=== PATIENT | female | born 2000 | race Caucasian/White ===

== ENCOUNTER 2024-12-12 09:59 | Emergency (ER) | payer MEDICAID, OTHER ==
[~2024-12-12] VITALS: Ht 167.6 cm; Wt 81.4 kg
[2024-12-12 10:22] VITALS: PULSE 72; RESP 14; O2SAT 99
[2024-12-12 10:24] VITALS: BP 116/74; PULSE 74; RESP 17; TEMP 97.9; O2SAT 95
--- NOTE | 2024-12-12 10:51 | ED.PDOC ---
History of Present Illness HPI Comments 24-year-old female who comes in with chief complaint of vaginal bleeding. The patient states that she missed her period for approximately three days. She states that she went and saw her OBGYN today. She did have some vaginal bleeding started yesterday but it increased today. She took a home test which was negative. Her doctor center to the emergency department's for further evaluation. At this time she denies any significant cramping. 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 Family History Family History: Family hx of DM Social History Smoker: Non-Smoker Alcohol: Occasionally Drugs: Marijuana Lives In: Home Constitutional: denies: chills, diaphoresis, fatigue, fever, malaise, sweats, weakness, others EENTM: denies: blurred vision, double vision, ear bleeding, ear discharge, ear drainage, ear pain, ear ringing, eye pain, eye redness, hearing loss, mouth pain, mouth swelling, nasal discharge, nose bleeding, nose congestion, nose pain, photophobia, tearing, throat pain, throat swelling, voice changes, others Respiratory: denies: cough, hemoptysis, orthopnea, SOB at rest, shortness of breath, SOB with excertion, stridor, wheezing, others Cardiovascular: denies: chest pain, dizzy spells, diaphoresis, Dyspnea on exertion, edema, irregular heart beat, left arm pain, lightheadedness, palpitations, PND, syncope, others Gastrointestinal: denies: abdomen distended, abdominal pain, blood streaked bowels, constipated, diarrhea, dysphagia, difficulty swallowing, hematemesis, melena, nausea, poor appetite, poor fluid intake, rectal bleeding, rectal pain, vomiting, others Genitourinary: reports: abnormal vagina bleeding; denies: burning, dyspareunia, dysuria, flank pain, frequency, hematuria, incontinence, pain, , vagina discharge, urgency, others Neurological: denies: dizziness, fainting, headache, left sided numbness, left sided weakness, numbness, paresthesia, pre-existing deficit, right sided numbness, right sided weakness, seizure, speech problems, tingling, tremors, weakness, others Musculoskeletal: denies: back pain, gout, joint pain, joint swelling, muscle pain, muscle stiffness, neck pain, others Integumetry: denies: bruises, change in color, change in hair/nails, dryness, laceration, lesions, lumps, rash, wounds, others Allergic/Immunocompromised: denies: Difficulty Healing, Frequent Infections, Hi ves, Itching, others Hematologic/Lymphatic: denies: anemia, blood clots, easy bleeding, easy bruising, swollen glands, others Endocrine: denies: excessive hunger, excessive sweating, excessive thirst, excessive urination, flushing, intolerance to cold, intolerance to heat, unexplained weight gain, unexplained weight loss, others Psychiatric: denies: anxiety, bipolar disorder, depression, hopeless, panic disorder, schizophrenia, sleepless, suicidal, others Physical Exam General Appearance: No Apparent Distress HEENT: Normal ENT Inspection, Pharynx Normal, TMs Normal Neck: Full Range of Motion, Non-Tender, Normal, Normal Inspection Respiratory: Chest Non-Tender, Lungs Clear, No Accessory Muscle Use, No Respiratory Distress, Normal Breath Sounds Cardiovascular: No Edema, No JVD, No Murmur, No Gallop, Normal Peripheral Pulses, Regular Rate/Rhythm Breast Exam: Deferred Gastrointestinal: No Organomegaly, Non Tender, No Pulsatile Mass, Normal Bowel Sounds, Soft Genitalia: Deferred Pelvic: Deferred Rectal: Deferred Extremities: No calf tenderness, Normal capillary refill, Normal inspection, Normal range of motion, Non-tender, No pedal edema Musculoskeletal : Apperance: Normal Neurologic: Alert, manager legal II-XII nml as Tested, No Motor Deficits, Normal Affect, Normal Mood, No Sensory Deficits Cerebellar Function: Normal Reflexes: Normal Skin: Dry, Normal Color, Warm Lymphatic: No Adenopathy Was a procedure done? Was a procedure done?: No Differential Dx Considerations may include: Ectopic , threatened , metromenorrhagia X-Ray, Labs, Meds, VS Vital Signs Date Time Temp Pulse Resp B/P (MAP) Pulse Ox O2 Delivery O2 Flow Rate FiO2 12/12/24 10:24 97.9 74 17 116/74 (88) 95 97.9 12/12/24 10:24 74 17 95 Room Air 12/12/24 10:22 72 14 99 Room Air* 0 21 12/12/24 10:04 98.7 85 18 116/4 (41) 96 Lab Test 12/12/24 10:27 Range/Units White Blood Count 7.5 4.4-10.8 10^3/uL Red Blood Count 4.83 4.0-5.20 10^6/uL Hemoglobin 13.3 12.2-16.2 g/dL Hematocrit 39.0 36.0-46.0 % Mean Corpuscular Volume 80.7 80.0-100.0 fL Mean Corpuscular Hemoglobin 27.5 L 28.0-32.0 pg Mean Corpuscular Hemoglobin Concent 34.1 32.0-36.0 g/dL Red Cell Distribution Width 15.3 H 11.8-14.3 % Platelet Count 177 140-450 10^3/uL Mean Platelet Volume 11.6 H 6.9-10.8 fL Neutrophils (%) (Auto) 73.6 37.0-80.0 % Lymphocytes (%) (Auto) 19.3 10.0-50.0 % Monocytes (%) (Auto) 5.9 0.0-12.0 % Eosinophils (%) (Auto) 0.8 0.0-7.0 % Basophils (%) (Auto) 0.4 0.0-2.0 % Neutrophils # (Auto) 5.6 1.6-8.6 10 ^3/uL Lymphocytes # (Auto) 1.5 0.4-5.4 10 ^3/uL Monocytes # (Auto) 0.4 0-1.3 10 ^3/uL Eosinophils # (Auto) 0.1 0-0.8 10 ^3/uL Basophils # (Auto) 0 0-0.2 10 ^3/uL Nucleated Red Blood Cells 0.2 % Beta HCG, Quantitative 0.1 L 1.5-4.2 mIU/mL The CBC is within normal limits The quantitative hCG is negative At this time, the patient was being discharged and will follow up with the [facility] care doctor The patient will return to the emergency department's condition worsens The patient understands and agrees with the management. Time of 1ST Reevaluation: 10:51 Reevaluation 1ST: Improved Patient Education/Counseling: Diagnosis, Treatment, Prognosis, Need For Follow Up Family Education/Counseling: No Family Present Departure 1 Departure Time of Disposition: 11:33 Impression: Primary Impression: Abnormal vaginal bleeding Disposition: 01 HOME / SELF CARE / HOMELESS Condition: Fair Discharged With: Self Critical Care Note Critical Care Time?: No Stability Stability form required: No Heart Score Heart Score: Heart Score Response (Comments) Value History N/A 0 EKG N/A 0 Age N/A 0 Risk Factors N/A 0 Troponin N/A 0 Total 0 CHERRIE HEDRICK MD Dec 12, 2024 10:51
[2024-12-12 10:54] LABS: Basophils # (auto) 0 10 ^3/uL (0-0.2); Basophils % (auto) 0.4 % (0.0-2.0); Eosinophils # (auto) 0.1 10 ^3/uL (0-0.8); Eosinophils % (auto) 0.8 % (0.0-7.0); Hemoglobin 13.3 g/dL (12.2-16.2); Lymphocytes # (auto) 1.5 10 ^3/uL (0.4-5.4); Lymphocytes % (auto) 19.3 % (10.0-50.0); Mean Corpuscular Hemoglobin 27.5 pg (28.0-32.0); Mean Corpuscular Hgb Conc. 34.1 g/dL (32.0-36.0); Mean Corpuscular Volume 80.7 fL (80.0-100.0); Monocytes # (auto) 0.4 10 ^3/uL (0-1.3); Monocytes % (auto) 5.9 % (0.0-12.0); Neutrophils # (auto) 5.6 10 ^3/uL (1.6-8.6); Neutrophils % (auto) 73.6 % (37.0-80.0); Nucleated Red Blood Cells % 0.2 %; Platelet Count (auto) 177 10^3/uL (140-450); Red Blood Cells 4.83 10^6/uL (4.0-5.20); Red Cell Distribution Width 15.3 % (11.8-14.3); White Blood Cell 7.5 10^3/uL (4.4-10.8)
[2024-12-12] MEDS: ACETAMINOPHEN 325 MG TAB PO ONE (12:14)
== END 2024-12-12 12:15 | disposition home or self-care (01) ==
LOC: ER 09:59
DX: N93.9 Abnormal uterine and vaginal bleeding, unspecified (principal); F32.9 Major depressive disorder, single episode, unspecified; F12.90 Cannabis use, unspecified, uncomplicated; Z88.1 Allergy status to other antibiotic agents
CPT/HCPCS: 36415; 84702; 85025

== ENCOUNTER 2024-12-18 10:42 | Inpatient (IN) | payer MEDICAID ==
[~2024-12-18] VITALS: Ht 167.6 cm; Wt 81.0 kg
--- NOTE | 2024-12-18 10:54 | ED.PDOC ---
GI ASSESSMENT HPI Comments 24 y.o female with PMHx of anxiety and depression, presents to the ED for a chief complaint of of mid upper abdominal pain associated with nausea and vomiting that started one day ago. Patient describes pain as sharp, constant, radiating to her back and had a pain rate of 8/10. Patient reports today around 0400 pain increased and worsened when vomiting. Patient denies any diarrhea, rectal bleeding, hematemesis, fever, chills, or dysuria. Patient was recently seen for vaginal bleeding on 12/12/24 at this ED, was told to follow up with OB in which she did and had a further assessment done, ruling out or any other complications. At this time, patient reports vaginal bleeding has resolved. Time Seen by MD: 10:46 Primary Care Provider: DOUGLAS Reviewed Notes: Nurses Notes, Medications, Allergies Allergies: Coded Allergies: Metoclopramide (Verified Allergy, Unknown, 12/12/24) Information Source: Patient Mode of Arrival: Ambulatory Timing: Days (1) Duration: Since onset Prehospital treatment: None Quality: Sharp Vomitus: Hard Stool: Normal Severity: Moderate Recent: None Recent Hx of: None Pain Location: Diffuse, Periumbilical Modifying Factors: Nothing Associated sign and symptoms: Nausea, Vomiting, Abdominal Pain Past Medical History PAST MEDICAL HISTORY: Anxiety, Depression Surgical History: Surgical History (Other): Bartholin gland excision CAMERA ENGINEER 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 History Family History Family History: Family hx of DM Social History Smoker: Non-Smoker Alcohol: Occasionally Drugs: Marijuana Lives In: Home Constitutional: denies: chills, diaphoresis, fatigue, fever, malaise, sweats, weakness, others EENTM: denies: blurred vision, double vision, ear bleeding, ear discharge, ear drainage, ear pain, ear ringing, eye pain, eye redness, hearing loss, mouth pain, mouth swelling, nasal discharge, nose bleeding, nose congestion, nose pain, photophobia, tearing, throat pain, throat swelling, voice changes, others Respiratory: denies: cough, hemoptysis, orthopnea, SOB at rest, shortness of breath, SOB with excertion, stridor, wheezing, others Cardiovascular: denies: chest pain, dizzy spells, diaphoresis, Dyspnea on exertion, edema, irregular heart beat, left arm pain, lightheadedness, palpitations, PND, syncope, others Gastrointestinal: reports: abdominal pain, nausea, vomiting; denies: abdomen distended, blood streaked bowels, constipated, diarrhea, dysphagia, difficulty swallowing, hematemesis, melena, poor appetite, poor fluid intake, rectal bleeding, rectal pain, others Genitourinary: denies: abnormal vagina bleeding, burning, dyspareunia, dysuria, flank pain, frequency, hematuria, incontinence, pain, , vagina discharge, urgency, others Neurological: denies: dizziness, fainting, headache, left sided numbness, left sided weakness, numbness, paresthesia, pre-existing deficit, right sided numbness, right sided weakness, seizure, speech problems, tingling, tremors, weakness, others Musculoskeletal: denies: back pain, gout, joint pain, joint swelling, muscle pain, muscle stiffness, neck pain, others Integumetry: denies: bruises, change in color, change in hair/nails, dryness, laceration, lesions, lumps, rash, wounds, others Allergic/Immunocompromised: denies: Difficulty Healing, Frequent Infections, Hives, Itching, others Hematologic/Lymphatic: denies: anemia, blood clots, easy bleeding, easy bruising, swollen glands, others Endocrine: denies: excessive hunger, excessive sweating, excessive thirst, excessive urination, flushing, intolerance to cold, intolerance to heat, unexplained weight gain, unexplained weight loss, others Psychiatric: denies: anxiety, bipolar disorder, depression, hopeless, panic disorder, schizophrenia, sleepless, suicidal, others All Other Systems: Reviewed and Negative Physical Exam General Appearance: Moderate Distress HEENT: Normal ENT Inspection, Pharynx Normal, TMs Normal Neck: Full Range of Motion, Non-Tender, Normal, Normal Inspection Respiratory: Chest Non-Tender, Lungs Clear, No Accessory Muscle Use, No Respiratory Distress, Normal Breath Sounds Cardiovascular: No Edema, No JVD, No Murmur, No Gallop, Normal Peripheral Pulses, Regular Rate/Rhythm Breast Exam: Deferred Gastrointestinal: No Organomegaly, Non Tender, No Pulsatile Mass, Normal Bowel Sounds, Soft Genitalia: Deferred Pelvic: Deferred Rectal: Deferred Extremities: No calf tenderness, Normal capillary refill, Normal inspection, Normal range of motion, Non-tender, No pedal edema Musculoskeletal : Apperance: Normal Neurologic: Alert, campus monitor II-XII nml as Tested, No Motor Deficits, Normal Affect, Normal Mood, No Sensory Deficits Cerebellar Function: Normal Reflexes: Normal Skin: Dry, Normal Color, Warm Lymphatic: No Adenopathy Was a procedure done? Was a procedure done?: No GI differential Dx Differential Diagnosis: Cholangitis, Cholecystitis, Esophagitis, Gastritis/PUD, Gastroenteritis, Electrolyte Imbalance, Bacterial, Viral X-Ray, Labs, Meds, VS Vital Signs Date Time Temp Pulse Resp B/P (MAP) Pulse Ox O2 Delivery O2 Flow Rate FiO2 12/18/24 14:06 62 16 137/80 12/18/24 13:04 98.0 60 16 123/82 (96) 99 98.0 12/18/24 13:04 60 16 99 Room Air* 0 21 12/18/24 10:51 98.2 76 18 112/80 (91) 98 98.2 Lab Test 12/18/24 13:00 12/18/24 11:04 Range/Units Urine Color Yellow Yellow Urine Clarity Clear Clear Urine pH 5.5 5.0-9.0 Urine Specific [place] 1.028 1.001-1.035 Urine Protein Negative Negative Urine Ketones 1+ H Negative Urine Blood Negative Negative /uL Urine Nitrite Negative Negative Urine Bilirubin Negative Negative Urine Urobilinogen Normal Negative mg/dL Urine Leukocyte Esterase 2+ Negative /uL Urine RBC 2 0 - 4 /hpf Urine Microscopic WBC 7 H 0-5 /HPF Urine Squamous Epithelial Cells Few <5 /hpf Urine Bacteria Few H None Seen /hpf Urine Mucus Few None Seen Urine Glucose Normal Normal mg/dL White Blood Count 7.9 4.4-10.8 10^3/uL Red Blood Count 4.88 4.0-5.20 10^6/uL Hemoglobin 13.4 12.2-16.2 g/dL Hematocrit 39.0 36.0-46.0 % Mean Corpuscular Volume 80.0 80.0-100.0 fL Mean Corpuscular Hemoglobin 27.4 L 28.0-32.0 pg Mean Corpuscular Hemoglobin Concent 34.2 32.0-36.0 g/dL Red Cell Distribution Width 15.1 H 11.8-14.3 % Platelet Count 174 140-450 10^3/uL Mean Platelet Volume 10.7 6.9-10.8 fL Neutrophils (%) (Auto) 76.9 37.0-80.0 % Lymphocytes (%) (Auto) 17.6 10.0-50.0 % Monocytes (%) (Auto) 4.8 0.0-12.0 % Eosinophils (%) (Auto) 0.3 0.0-7.0 % Basophils (%) (Auto) 0.4 0.0-2.0 % Neutrophils # (Auto) 6.1 1.6-8.6 10 ^3/uL Lymphocytes # (Auto) 1.4 0.4-5.4 10 ^3/uL Monocytes # (Auto) 0.4 0-1.3 10 ^3/uL Eosinophils # (Auto) 0 0-0.8 10 ^3/uL Basophils # (Auto) 0 0-0.2 10 ^3/uL Nucleated Red Blood Cells 0.1 % Sodium Level 139 136-145 mmol/L Potassium Level 3.9 3.5-5.1 mmol/L Chloride Level 106 98-107 mmol/L Carbon Dioxide Level 26 20-31 mmol/L Anion Gap 7 5-15 Blood Urea Nitrogen 8 L 9-23 mg/dL Creatinine 0.77 0.550-1.02 mg/dL Glomerular Filtration Rate Calc 109 >90 mL/min BUN/Creatinine Ratio 10.4 10.0-20.0 Serum Glucose 98 74-106 mg/dL Calcium Level 9.9 8.7-10.4 mg/dL Total Bilirubin 1.7 H 0.2-1.0 mg/dL Aspartate Amino Transferase (AST) < 8 L 13-40 U/L Alanine Aminotransferase (ALT) 11 7-40 U/L Alkaline Phosphatase 68 46-116 U/L Total Protein 7.2 5.7-8.2 g/dL Albumin 4.7 3.2-4.8 g/dL Lipase 23 12-53 U/L Current Medications Medications (Trade) Dose Ordered Sig/Mili Route Start Time Stop Time Status Last Admin Ondansetron HCl (Zofran) 4 mg ONCE ONCE IV 12/18/24 13:30 12/18/24 13:31 DC 12/18/24 14:06 Morphine Sulfate 4 mg ONCE ONCE IV 12/18/24 13:30 12/18/24 13:31 DC 12/18/24 14:06 Ultrasound gallbladder IMPRESSION: 1. No evidence of cholecystitis gallstones or biliary dilatation. The patient's CBC and chemistry panel are within normal limits The total bilirubin is slightly elevated at 1.7 The urine test is positive for UTI The patient was being given Rocephin 1 g IV piggyback for the UTI We did speak with the patient and she was still having persistent abdominal pain The patient was being given morphine and Zofran The patient also states that she has been told that she has had gallstones but they had to do a HIDA scan in the past At this time we feel that the patient needs to be admitted and we are going to have the GI physician also consult on this patient. Time of 1ST Reevaluation: 10:54 Reevaluation 1ST: Unchanged Patient Education/Counseling: Diagnosis, Treatment, Prognosis Family Education/Counseling: No Family Present Departure 1 Departure Time of Disposition: 14:06 Impression: Primary Impression: Intractable abdominal pain Additional Impression: UTI (urinary tract infection) Qualified Codes: N30.00 - Acute cystitis without hematuria Disposition: ADMITTED INPATIENT Admit to: Med Surg Condition: Fair Critical Care Note Critical Care Time?: No Stability Stability form required: Yes Unstable for transfer: ED Physician Assesment (Clinical assesment) I personally scribed for CHERRIE HEDRICK MD ([email or web address]) on 12/18/24 at 10:54. Electronically submitted by Marisela Villatoro ([email or web address]). I personally scribed for CHERRIE HEDRICK MD ([email or web address]) on 12/18/24 at 13:00. Electronically submitted by Marisela Villatoro ([email or web address]). CHERRIE HEDRICK MD Dec 18, 2024 10:54
[2024-12-18 11:31] LABS: Basophils # (auto) 0 10 ^3/uL (0-0.2); Basophils % (auto) 0.4 % (0.0-2.0); Eosinophils # (auto) 0 10 ^3/uL (0-0.8); Eosinophils % (auto) 0.3 % (0.0-7.0); Hemoglobin 13.4 g/dL (12.2-16.2); Lymphocytes # (auto) 1.4 10 ^3/uL (0.4-5.4); Lymphocytes % (auto) 17.6 % (10.0-50.0); Mean Corpuscular Hemoglobin 27.4 pg (28.0-32.0); Mean Corpuscular Hgb Conc. 34.2 g/dL (32.0-36.0); Monocytes # (auto) 0.4 10 ^3/uL (0-1.3); Monocytes % (auto) 4.8 % (0.0-12.0); Neutrophils # (auto) 6.1 10 ^3/uL (1.6-8.6); Neutrophils % (auto) 76.9 % (37.0-80.0); Nucleated Red Blood Cells % 0.1 %; Platelet Count (auto) 174 10^3/uL (140-450); Red Blood Cells 4.88 10^6/uL (4.0-5.20); Red Cell Distribution Width 15.1 % (11.8-14.3); White Blood Cell 7.9 10^3/uL (4.4-10.8)
[2024-12-18 11:36] LABS: Alanine Aminotransferase 11 U/L (7-40); Albumin 4.7 g/dL (3.2-4.8); Alkaline Phosphatase 68 U/L (46-116); Anion Gap 7 (5-15); BUN/Creatinine Ratio 10.4 (10.0-20.0); Calcium 9.9 mg/dL (8.7-10.4); Carbon Dioxide 26 mmol/L (20-31); Chloride 106 mmol/L (98-107); Glucose 98 mg/dL (74-106); Potassium 3.9 mmol/L (3.5-5.1); Sodium 139 mmol/L (136-145); Total Protein 7.2 g/dL (5.7-8.2)
[2024-12-18 11:38] LABS: Aspartate Aminotransferase < 8 U/L (13-40); Bilirubin, Total 1.7 mg/dL (0.2-1.0); Blood Urea Nitrogen 8 mg/dL (9-23)
[2024-12-18 11:48] LABS: Lipase 23 U/L (12-53)
--- NOTE | 2024-12-18 12:28 | DVH ---
Ultrasound gallbladder INDICATION: ruq pain Technique: 2-D real-time ultrasound was performed with axial and sagittal images submitted for evalu ation. FINDINGS: Liver and spleen are normal in size without focal mass. Liver measures 15 cm No gallstones or gallbladder wall thickening. No gallbladder wall thickening. No biliary dilatation. Common bile duct measures 3.1 cm Kidneys are normal in size without mass stone or hydronephrosis. Right kidney measures 9 cm in IMPRESSION: 1. No evidence of cholecystitis gallstones or biliary dilatation.
[2024-12-18 13:04] VITALS: PULSE 60; RESP 16; O2SAT 99
[2024-12-18 13:24] LABS: Urine Bacteria FEW /hpf (None Seen); Urine Blood Negative /uL (Negative); Urine Clarity Clear (Clear); Urine Color Yellow (Yellow); Urine Mucus FEW (None Seen); Urine Protein, UAD Negative (Negative); Urine Specific Gravity 1.028 (1.001-1.035); Urine Squamous Epithelial Cell FEW /hpf (<5); Urine Urobilinogen Normal (Negative); Urine WBC 7 /HPF (0-5); Urine pH 5.5 (5.0-9.0)
[2024-12-18] MEDS: ONDANSETRON HCL 4 MG/2 ML VIAL IV ONE (14:06)
[2024-12-18] MEDS: MORPHINE SULFATE 4 MG/ML SYR/VIAL IV ONE (14:06)
[2024-12-18] MEDS ORDERED: ACETAMINOPHEN 325 MG TAB PO PRN (18:00)
[2024-12-18 18:47] LABS: Chloride 105 mmol/L (98-107); Potassium 3.7 mmol/L (3.5-5.1); Sodium 140 mmol/L (136-145)
[2024-12-18 18:48] LABS: Anion Gap 8 (5-15); Calcium 9.8 mg/dL (8.7-10.4); Carbon Dioxide 27 mmol/L (20-31)
[2024-12-18 18:53] LABS: BUN/Creatinine Ratio 9.6 (10.0-20.0); Glucose 85 mg/dL (74-106)
[2024-12-18 18:54] LABS: Blood Urea Nitrogen 8 mg/dL (9-23)
[2024-12-18] MEDS: ONDANSETRON HCL 4 MG/2 ML VIAL IV PRN (19:10)
[2024-12-18] MEDS: HYDROcodone-ACET 5/325MG TAB PO PRN (19:19)
--- NOTE | 2024-12-18 21:20 | DVHHP2 ---
History of Present Illness Reason for Visit: Abdominal pain History of Present Illness 24-year-old female presents for evaluation of abdominal pain. Patient reports right upper quadrant abdominal pain that radiates to her back. She reports previously being told that she would requiring a cholecystectomy due to gallstones. She has not been able to follow up with the surge and due to insurance reasons. Today she presents with nausea as well. She states his symptoms become aggravated after eating food. No other acute complaints reported. Past Medical History Depression anxiety Past Surgical History Family History Diabetes mellitus Smoke: No ALCOHOL: occassional Drugs: Marijuana Lives: with Family Review of Systems Review of Systems Review of systems are currently negative otherwise addressed HPI. Allergies: Coded Allergies: Metoclopramide (Verified Allergy, Unknown, 12/12/24) Medications Current Medications Medications Dose Ordered Sig/Mili Route Start Time Stop Time Status Last Admin Dose Admin Ceftriaxone Sodium 50 ml @ 100 mls/hr DAILY@09 IV 12/19/24 09:00 Acetaminophen/ Hydrocodone Bitart 1 tab Q4HP PRN PO 12/18/24 18:00 12/18/24 19:19 1 TAB Ondansetron HCl 4 mg Q4HP PRN IV 12/18/24 18:00 12/18/24 19:10 4 MG Acetaminophen 650 mg Q6HP PRN PO 12/18/24 18:00 Exam Vital Signs Vital Signs Date Time Temp Pulse Resp B/P (MAP) Pulse Ox O2 Delivery O2 Flow Rate FiO2 12/18/24 14:07 98.0 62 16 137/80 (99) 96 98.0 12/18/24 13:04 Room Air* 0 21 Exam Gen: 24-year-old female in mild distress. Skin: Warm, dry, normal color and texture, no rash. HEENT: Normocephalic atraumatic, mucous membranes moist and pink. Neck: Cervical and supraclavicular nodes normal without enlargement, trachea is midline, thyroid gland is normal without masses. Pulmonary: Clear to auscultation and percussion bilaterally. Cardiac: Regular rate and rhythm. No murmur Abdomen: Soft, nontender, nondistended, bowel sounds present all 4 quadrants, no guarding, no rigidity, no organomegaly. Extremities: No cyanosis, clubbing, no edema Neuro: Cranial nerves II through XII grossly intact, normal affect and speech, no focal motor deficits. Labs/Xrays ORDERING PHYSICIAN: CHERRIE HEDRICK MD PROCEDURE(s): GBUS - GALLBLADDER REASON: ruq pain ORDER NUMBER(s): [id number], ACCESSION NUMBER(s): [id number] Ultrasound gallbladder INDICATION: ruq pain Technique: 2-D real-time ultrasound was performed with axial and sagittal images submitted for evaluation. FINDINGS: Liver and spleen are normal in size without focal mass. Liver measures 15 cm No gallstones or gallbladder wall thickening. No gallbladder wall thickening. No biliary dilatation. Common bile duct measures 3.1 cm Kidneys are normal in size without mass stone or hydronephrosis. Right kidney measures 9 cm in IMPRESSION: 1. No evidence of cholecystitis gallstones or biliary dilatation. Labs Test 12/18/24 18:27 12/18/24 13:00 12/18/24 11:04 Range/Units Sodium Level 140 136-145 mmol/L Potassium Level 3.7 3.5-5.1 mmol/L Chloride Level 105 98-107 mmol/L Carbon Dioxide Level 27 20-31 mmol/L Anion Gap 8 5-15 Blood Urea Nitrogen 8 L 9-23 mg/dL Creatinine 0.83 0.550-1.02 mg/dL Glomerular Filtration Rate Calc 100 >90 mL/min BUN/Creatinine Ratio 9.6 L 10.0-20.0 Serum Glucose 85 74-106 mg/dL Calcium Level 9.8 8.7-10.4 mg/dL Urine Color Yellow Yellow Urine Clarity Clear Clear Urine pH 5.5 5.0-9.0 Urine Specific [place] 1.028 1.001-1.035 Urine Protein Negative Negative Urine Ketones 1+ H Negative Urine Blood Negative Negative /uL Urine Nitrite Negative Negative Urine Bilirubin Negative Negative Urine Urobilinogen Normal Negative mg/dL Urine Leukocyte Esterase 2+ Negative /uL Urine RBC 2 0 - 4 /hpf Urine Microscopic WBC 7 H 0-5 /HPF Urine Squamous Epithelial Cells Few <5 /hpf Urine Bacteria Few H None Seen /hpf Urine Mucus Few None Seen Urine Glucose Normal Normal mg/dL White Blood Count 7.9 4.4-10.8 10^3/uL Red Blood Count 4.88 4.0-5.20 10^6/uL Hemoglobin 13.4 12.2-16.2 g/dL Hematocrit 39.0 36.0-46.0 % Mean Corpuscular Volume 80.0 80.0-100.0 fL Mean Corpuscular Hemoglobin 27.4 L 28.0-32.0 pg Mean Corpuscular Hemoglobin Concent 34.2 32.0-36.0 g/dL Red Cell Distribution Width 15.1 H 11.8-14.3 % Platelet Count 174 140-450 10^3/uL Mean Platelet Volume 10.7 6.9-10.8 fL Neutrophils (%) (Auto) 76.9 37.0-80.0 % Lymphocytes (%) (Auto) 17.6 10.0-50.0 % Monocytes (%) (Auto) 4.8 0.0-12.0 % Eosinophils (%) (Auto) 0.3 0.0-7.0 % Basophils (%) (Auto) 0.4 0.0-2.0 % Neutrophils # (Auto) 6.1 1.6-8.6 10 ^3/uL Lymphocytes # (Auto) 1.4 0.4-5.4 10 ^3/uL Monocytes # (Auto) 0.4 0-1.3 10 ^3/uL Eosinophils # (Auto) 0 0-0.8 10 ^3/uL Basophils # (Auto) 0 0-0.2 10 ^3/uL Nucleated Red Blood Cells 0.1 % Total Bilirubin 1.7 H 0.2-1.0 mg/dL Aspartate Amino Transferase (AST) < 8 L 13-40 U/L Alanine Aminotransferase (ALT) 11 7-40 U/L Alkaline Phosphatase 68 46-116 U/L Total Protein 7.2 5.7-8.2 g/dL Albumin 4.7 3.2-4.8 g/dL Lipase 23 12-53 U/L Assessment/Plan Assessment/Plan Assessment Acute abdominal pain Rule out cholecystitis Mild transaminitis UTI Plan Admit the patient to [facility] to the hospitalist AGUSTIN lim pending Surgical consultation Rocephin Clear liquid diet Pain management Continue treatment per orders. Plan discussed with: Patient My Orders Orders - DARIEN DIA AGACNP Procedure Category Date Status Time * Gi Dvh Market Intelligence Consultant CONS 12/18/24 Transmitted 17:59 Ceftriaxone 1gm/50ml PHA 12/19/24 In Process D5w (Rocephin) 09:00 Admit ADMIT 12/18/24 Transmitted 17:59 Hydrocodone-Acet PHA 12/18/24 In Process 5/325mg Tab ([place] 18:00 Ondansetron Hcl PHA 12/18/24 In Process (Zofran) 18:00 Complete Blood Count LAB 12/19/24 Verified 04:00 Condition: Stable PEGGY 12/18/24 In Process 17:59 Acetaminophen Tablet PHA 12/18/24 In Process (Tylenol Tablet) 18:00 Clear Liq Diet DIET 12/18/24 Transmitted Dinner Bedrest With Bathroom PEGGY 12/18/24 In Process Privileg 17:59 Date of Service: Dec 18, 2024 Billing Provider: DARIEN DIA Common Visit Codes: [id number] INP/OBS CARE (HIGH) DARIEN DIA Dec 18, 2024 21:20
[2024-12-18 22:55] VITALS: PULSE 55; RESP 16; O2SAT 98
[2024-12-19 05:44] LABS: Basophils # (auto) 0 10 ^3/uL (0-0.2); Basophils % (auto) 0.4 % (0.0-2.0); Eosinophils # (auto) 0.1 10 ^3/uL (0-0.8); Eosinophils % (auto) 1.2 % (0.0-7.0); Hematocrit 41.9 % (36.0-46.0); Hemoglobin 14.1 g/dL (12.2-16.2); Lymphocytes # (auto) 1.7 10 ^3/uL (0.4-5.4); Lymphocytes % (auto) 29.3 % (10.0-50.0); Mean Corpuscular Hgb Conc. 33.6 g/dL (32.0-36.0); Mean Corpuscular Volume 80.5 fL (80.0-100.0); Monocytes # (auto) 0.4 10 ^3/uL (0-1.3); Monocytes % (auto) 6.7 % (0.0-12.0); Neutrophils # (auto) 3.7 10 ^3/uL (1.6-8.6); Neutrophils % (auto) 62.4 % (37.0-80.0); Nucleated Red Blood Cells % 0.1 %; Platelet Count (auto) 174 10^3/uL (140-450); Red Blood Cells 5.21 10^6/uL (4.0-5.20); Red Cell Distribution Width 14.6 % (11.8-14.3); White Blood Cell 5.9 10^3/uL (4.4-10.8)
[2024-12-19 06:27] VITALS: BP 122/67; PULSE 52; PULSE 55; RESP 18; TEMP 97.7; O2SAT 100
[2024-12-19 07:56] LABS: Alanine Aminotransferase 14 U/L (7-40); Alkaline Phosphatase 72 U/L (46-116); Anion Gap 11 (5-15); BUN/Creatinine Ratio 12.3 (10.0-20.0); Blood Urea Nitrogen 10 mg/dL (9-23); Calcium 10.2 mg/dL (8.7-10.4); Carbon Dioxide 27 mmol/L (20-31); Chloride 103 mmol/L (98-107); Glucose 87 mg/dL (74-106); INR 1.03 (0.9-1.15); Partial Thromboplastin Time 29.6 SEC (24.5-34.5); Prothrombin Time 10.9 sec (9.3-11.8); Sodium 141 mmol/L (136-145); Total Protein 7.6 g/dL (5.7-8.2)
[2024-12-19 07:58] LABS: Albumin 5.2 g/dL (3.2-4.8); Aspartate Aminotransferase 12 U/L (13-40); Beta HCG, Quantitative 0.1 mIU/mL (1.5-4.2); Bilirubin, Total 1.9 mg/dL (0.2-1.0); Blood Alcohol < 3.0 mg/dL (<10); Potassium 3.4 mmol/L (3.5-5.1)
[2024-12-19 08:01] LABS: Thyroid Stimulating Hormone 0.94 uIU/mL (0.55-4.78)
[2024-12-19 10:00] VITALS: BP 140/87; PULSE 63; RESP 16; TEMP 98.5; O2SAT 100
[2024-12-19] MEDS: SODIUM CHLORIDE 0.9% 1,000 ML IV ONE (11:05)
[2024-12-19] MEDS: POTASSIUM EFFERVESENT TAB 25 MEQ PO ONE (11:07)
[2024-12-19] MEDS: cefTRIAXone 1GM/50ML D5W 50 ML IV SCH (11:07)
--- NOTE | 2024-12-19 12:13 | DVH ---
Exam: CT CT AB PEL WO CON-NO ORAL OR IV History: Possible nephrolithiasis Comparison Study: None Technique: Multidetector spiral CT of the abdomen and pelvis was performed from lung bases to pubic symphysis. Imaging was performed without IV contrast. Axial, coronal and sagittal multiplanar reform ats were obtained from the axial data set by the technologist. Radiation dose : Abdomen/Pelvis: CTDIvol 9.71 mGy, DLP 505.0 mGy*cm. Findings: Evaluation of solid organs is limited due to lack of intravenous contrast use. Lung Bases: No acute or significant lung base finding. Normal heart size. No pleural or pericardial effusion. Liver: The liver is normal in size. No focal lesions. Gallbladder and biliary Tree: Unremarkable Spleen: Unremarkable Pancreas: The pancreas is grossly normal in appearance. Adrenal Glands: Unremarkable Kidneys: Kidneys are grossly normal without calculi or hydronephrosis. Bladder: Grossly unremarkable for degree of distention. Bowel: The stomach is grossly normal in appearance. Small bowel and colon are normal in caliber and d istribution. The appendix is not visualized; however, no secondary findings of acute appendicitis josué ntified. Ascites: Absent Lymphadenopathy: No mesenteric, retroperitoneal or periportal lymphadenopathy. Abdominal wall and Mesentery: Unremarkable. Vasculature: The visualized abdominal aorta is normal in size and caliber. Evaluation of abdominal a nd pelvic vessels is limited due to lack of intravenous contrast. Pelvic Organs: Unremarkable Musculoskeletal: No aggressive focal bony lesions, acute fractures or dislocation. IMPRESSION: 1. No acute abdominal or pelvic findings. No hydronephrosis or nephrolithiasis. Radiation optimization: All CT scans at this facility use at least one of these dose optimization magnus hniques: Automated exposure control mA and/or kV adjustment per patient size (includes targeted exams where dose is matched to clinical indication) or iterative reconstruction. HS:Y
--- NOTE | 2024-12-19 12:36 | DVHPN2 ---
Progress Note Date Seen: Dec 19, 2024 Medical Necessity Reason Pt with a Central, PICC or Fol: No Objective vital signs Vital Sign Date Time Temp Pulse Resp B/P (MAP) Pulse Ox O2 Delivery O2 Flow Rate FiO2 12/19/24 10:00 98.5 63 16 140/87 (104) 100 98.5 12/19/24 06:27 Room Air* 0 21 medications Current Medications Medications Dose Ordered Sig/Mili Route Start Time Stop Time Status Last Admin Dose Admin Ceftriaxone Sodium 50 ml @ 100 mls/hr DAILY@09 IV 12/19/24 09:00 12/19/24 11:07 100 MLS/HR Acetaminophen/ Hydrocodone Bitart 1 tab Q4HP PRN PO 12/18/24 18:00 12/19/24 06:25 1 TAB Ondansetron HCl 4 mg Q4HP PRN IV 12/18/24 18:00 12/19/24 11:39 4 MG Acetaminophen 650 mg Q6HP PRN PO 12/18/24 18:00 laboratory and microbiology Laboratory Tests 12/19/24 05:14 Test 12/19/24 05:14 Range/Units Serum Glucose 87 74-106 mg/dL Problem List/Assessment/Plan Problem List/Assessment/Plan 12/19/24 preliminary vitis:patient out of her bed "gone for imaging", after reviewing her chart I ordered an MRCP as there is a possibility she may have passed a gallstone (no stones in GB on ultrasound, typical pain and elevated bilirubin, in combination with patient stating she was told in the past she has gallstones.complete consultation will follow after completion of w/u Plan discussed with: SERENITY Clark MD Dec 19, 2024 12:36
--- NOTE | 2024-12-19 12:38 | DVH ---
Procedure: NM NM HIDA SCAN Exam Date: 12/19/2024 08:04 AM Clinical History: r/o cholecystitis Comparison Study: CT dated 12/19/2024 Nuclear Medicine Hepatobiliary Scan. Technique: Following the intravenous administration of 4.3 mCi of technetium 99m labeled Choletec multiple plana r abdominal planar images were obtained in anterior projection in 5 minute intervals for 60 minutes . Right lateral images were obtained at 4 hours after injection. Findings: The liver appears grossly normal in size. There is no abnormal persistence of the cardiac or blood po ol activity. There is prompt visualization of the gallbladder and excretion of activity into the smal l bowel. Impression: Unremarkable hepatobiliary study without evidence of acute cholecystitis.
[2024-12-19 13:07] LABS: COVID19 ANTIGEN SOFIA FIA NEGATIVE (NEGATIVE)
[2024-12-19] MEDS: LIDOCAINE VISCOUS 2% 15ML UD PO ONE (14:13)
[2024-12-19] MEDS: MAALOX PLUS or MAALOX 30 ML PO ONE (14:13)
[2024-12-19] MEDS: diphenhdrAMINE HCL 50 MG/1 ML VL IV ONE (14:13)
[2024-12-19 14:30] LABS: Amphetamine Screen, Urine Neg (NEGATIVE); Barbiturate Scree,Urine Neg (NEGATIVE); Benzodiazephine Screen, Urine Neg (NEGATIVE); Cannabinoid Screen, Urine Pos (NEGATIVE); Cocaine Screen, Urine Neg (NEGATIVE); Opiate Scree,Urine Pos (NEGATIVE); Phencyclidine Screen, Urine Neg (NEGATIVE)
--- NOTE | 2024-12-19 14:43 | DVHPNRES ---
Progress Note Date Seen: Dec 19, 2024 Resident Creating Document: CALLIE SCOTT RESIDENT Medical Necessity Reason Pt with a Central, PICC or Fol: No Subjective Review of Systems Cheyanne Dexter is a 24-year-old female with a PMH of depression, anxiety presented to the ED with the chief complaints of abdominal pain. Patient reported She has been having abdominal pain intermittent for last 3 days but yesterday after eating food having severe abdominal pain which is mostly in right upper quadrant, radiating to her back associated with nausea and vomiting which brought her to visit ED. patient reported no symptoms 5 years, underwent EGD but did not remember exactly what it says but she remembers she was on Protonix. On my assessment patient denies sick contacts, recent travel, outside food, sick contacts, diarrhea, constipation, hematemesis, chest pain, shortness of breath and other associated symptoms. PMH: Depression anxiety PSH: Family history: DM in family Personal history: Lives with the family. Denies smoking but admits occasional alcohol and marijuana abuse Allergies: metoclopramide Patient seen and examined at the bedside. Patient is currently complaining of abdominal pain 04/12, GI cocktail given along with pain medications and antiemetics. Consulted surgery and GI for further evaluation. Objective vital signs Vital Sign Date Time Temp Pulse Resp B/P (MAP) Pulse Ox O2 Delivery O2 Flow Rate FiO2 12/19/24 10:00 98.5 63 16 140/87 (104) 100 98.5 12/19/24 06:27 Room Air* 0 21 medications Current Medications Medications Dose Ordered Sig/Mili Route Start Time Stop Time Status Last Admin Dose Admin Ceftriaxone Sodium 50 ml @ 100 mls/hr DAILY@09 IV 12/19/24 09:00 12/19/24 11:07 100 MLS/HR Acetaminophen/ Hydrocodone Bitart 1 tab Q4HP PRN PO 12/18/24 18:00 12/19/24 06:25 1 TAB Ondansetron HCl 4 mg Q4HP PRN IV 12/18/24 18:00 12/19/24 11:39 4 MG Acetaminophen 650 mg Q6HP PRN PO 12/18/24 18:00 Morphine Sulfate 2 mg Q4HPRN PRN IV 12/19/24 13:15 Examination Pt is lying on bed General Appearance: Alert, Oriented X3, Cooperative, severe distress due to pain HEENT: Atraumatic, Mucous membranes dry Respiratory: Clear to auscultation, Normal air movement, No added sounds Cardiovascular: Regular rate, Normal S1, Normal S2, No murmurs Abdominal: epigastrium and right upper quadrant tenderness Active bowel sounds, Soft, no distention, Extremities: No edema, Normal pulses, No tenderness/swelling Skin: No Significant rash, except past surgical scars Neuro: Normal speech, sensorimotor deficits none Psych/Mental Status: Mental status NL, Mood NL Nurse was there as sharperone during examination laboratory and microbiology Laboratory Tests 12/19/24 05:14 Test 12/19/24 05:14 Range/Units Serum Glucose 87 74-106 mg/dL Labs and/or images reviewed: Labs reviewed by me, Image(s) reviewed by me Problem List/Assessment/Plan Problem List/Assessment/Plan # Acute abdominal pain # Rule out Acute Cholecystitis - CT abdominal pelvis showed No acute abdominal or pelvic findings. No hydronephrosis or nephrolithiasis. - Gallbladder ultrasound showed no evidence of cholecystitis gallstones or biliary dilatation. - HIDA scans Unremarkable hepatobiliary study without evidence of acute cholecystitis. - consulted surgery, advised MRCP due to given elevated bilirubin - Supportive management with the pain management, IVF, Zofran # ? PUD - Protonix - GI cocktail - GI on board, advised to do EGD # Acute complicated UTI - evident on urinalysis - ordered urine bacterial culture - currently giving Rocephin # Hypokalemia - Repleting - Monitor lab Protonox SCDs NPO Goals of care discussed with the patient for more than 27 minutes: Full code status Case discussed with Dr. Brown, patient and nurse Plan discussed with: Patient My Orders My Orders Orders - CALLIE SCOTT RESIDENT Procedure Category Date Status Time Rapid Influenza A&B LAB 12/19/24 Logged 07:27 Urine Bacterial DEMARCO 12/19/24 Uncollected Culture 08:09 Ct Ab Pel Wo Con-No CT 12/19/24 Resulted Oral Or Iv 10:37 Sodium Chloride 0.9% PHA 12/19/24 In Process 10:45 Acute Hepatitis Panel LAB 12/19/24 In Process 10:44 Date of Service: Dec 19, 2024 Billing Provider: ROXI ESPOSITO MD Common Visit Codes: [id number] INP/OBS CARE(HIGH) CALLIE SCOTT RESIDENT Dec 19, 2024 14:43 ROXI ESPOSITO MD Dec 25, 2024 00:23
--- NOTE | 2024-12-19 14:51 | DVH ---
MRI Abdomen, without IV Contrast Exam Date: 12/19/2024 12:17 PM Comparison: CT dated 12/19/2024, HIDA scan dated 12/19/2024 and ultrasound dated 12/18/2024 History: hyperbilirubinemia Hx cholelithiasis Technique: Multisequence multiplanar MRI images were obtained of the abomen. MRCP including 3D SPACE, Radial 2D slabs and SPACE 3D MIP images Findings: Liver: The liver is normal in size without focal lesions. Normal liver contour. Spleen: Unremarkable. Pancreas: The pancreas is normal in appearance without focal lesions. Gallbladder and ducts: Small volume gallbladder sludge is present. The cystic duct, right and left hepatic ducts, common hepatic duct, and common bile ducts are unremarkable. The pancreatic duct is within normal limits. Adrenal glands: Unremarkable. Kidneys: Normal enhancement without suspicious lesions or hydronephrosis. Visualized bowel: Grossly unremarkable. Vasculature: Unremarkable. Lymphadenopathy: No evidence for lymphadenopathy. Ascites: Absent. Musculoskeletal: Bone marrow signal is normal. IMPRESSION: Small volume gallbladder sludge is present. No findings of cholecystitis or choledocholithiasis.
--- NOTE | 2024-12-19 14:54 | DVHCONRES ---
Date Seen: Dec 19, 2024 Resident Creating Document: EDWIGE REEVES RESIDENT History of Present Illness Patient is a 24-year-old female with past medical history of depression and anxiety, who came in due to abdominal pain. Per patient, 2 days ago she started experiencing this abdominal pain associated with bilious diarrhea and vomiting episodes. She describes the pain as sharp with bilateral radiation towards flanks, 10/10. Patient says she also noticed small amount of blood in her vomitus. She reports having similar symptoms 1 year ago when she was told she has gallbladder sludge. Patient had EGD done 4 years ago at [facility], however does not remember the findings. Patient notes needing foods we will aggravate her pain. Personal history: Lives with the family. Denies smoking but admits occasional alcohol and marijuana abuse Allergies: metoclopramide Patient seen and examined at the bedside. Patient is currently complaining of abdominal pain 7/10, GI cocktail given along with pain medications and antiemetics. Consulted surgery and GI for further evaluation. Past Surgical History section Family History: Chronic obstructive pulmonary disease G8 MOTHER Diabetes mellitus G8 MOTHER Hypertension G8 MOTHER Allergies: Coded Allergies: Metoclopramide (Verified Allergy, Unknown, 12/12/24) Current Medications Current Medications Medications (Trade) Dose Ordered Sig/Mili Route PRN Reason Start Time Stop Time Status Last Admin Ceftriaxone Sodium 50 ml @ 100 mls/hr DAILY@09 IV 12/19/24 09:00 12/19/24 11:07 Acetaminophen/ Hydrocodone Bitart (Juliette 5/325MG Tab) 1 tab Q4HP PRN PO MODERATE PAIN (4-6 PAIN SCALE) 12/18/24 18:00 12/19/24 06:25 Ondansetron HCl (Zofran) 4 mg Q4HP PRN IV NAUSEA / VOMITING 12/18/24 18:00 12/19/24 11:39 Acetaminophen (Tylenol Tablet) 650 mg Q6HP PRN PO PAIN SCALE 1-3 OR TEMP>100.4 12/18/24 18:00 Morphine Sulfate 2 mg Q4HPRN PRN IV MODERATE PAIN (4-6 PAIN SCALE) 12/19/24 13:15 Review of Systems Eyes: No Pain, No Vision change, No Conjunctivae inflammation, No Eyelid inflammation, No Other, No Redness ENT: No Ear pain, No Ear discharge, No Nose pain, No Nose discharge, No Nose congestion, No Mouth pain, No Mouth swelling, No Throat pain, No Throat swelling, No Other Cardiovascular: No Chest Pain, No Palpitations, No Orthopnea, No Paroxysmal No Dyspnea, No Edema, No Lt Headedness, No Other Respiratory: No Cough, No Dry, No Shortness of breath, No SOB with exertion, No Wheezing, No Hemoptysis, No Pleuritic Pain, No Sputum, No Other Gastrointestinal: Nausea, No Vomiting, Abdominal Pain, No Diarrhea, No Constipation, No Melena, No Hematochezia, No Other Genitourinary: No Dysuria, No Frequency, No Incontinence, No Hematuria, No Retention, No Other Musculoskeletal: No other, No neck pain, No shoulder pain, No arm pain, No back pain, No hand pain, No leg pain, No foot pain Skin: No Rash, No Lesions, No Jaundice, No Bruising, No Other Vital Signs Vital Signs Date Time Temp Pulse Resp B/P (MAP) Pulse Ox O2 Delivery O2 Flow Rate FiO2 12/19/24 10:00 98.5 63 16 140/87 (104) 100 98.5 12/19/24 06:27 Room Air* 0 21 Physical Exam General Appearance: Alert, Oriented X3, Cooperative, severe distress due to pain HEENT: Atraumatic, Mucous membranes dry Respiratory: Clear to auscultation, Normal air movement, No added sounds Cardiovascular: Regular rate, Normal S1, Normal S2, No murmurs Abdominal: epigastrium and right upper quadrant tenderness Active bowel sounds, Soft, no distention, Extremities: No edema, Normal pulses, No tenderness/swelling Skin: No Significant rash, except past surgical scars Neuro: Normal speech, sensorimotor deficits none Psych/Mental Status: Mental status NL, Mood NL Nurse was there as sharperone during examination Labs/Diagnostic Data Labs Test 12/19/24 13:30 12/19/24 12:07 12/19/24 11:02 12/19/24 05:14 Range/Units Urine Opiates Screen Pos NEGATIVE Urine Fentanyl Screen Neg NEGATIVE Urine Barbiturates Screen Neg NEGATIVE Urine Phencyclidine Screen Neg NEGATIVE Urine Amphetamines Screen Neg NEGATIVE Urine Benzodiazepines Screen Neg NEGATIVE Urine Cocaine Screen Neg NEGATIVE Urine Cannabinoids Screen Pos NEGATIVE SARS-CoV-2 Antigen (Rapid) Negative NEGATIVE Ammonia < 10 L 11-32 umol/L White Blood Count 5.9 # 4.4-10.8 10^3/uL Red Blood Count 5.21 H 4.0-5.20 10^6/uL Hemoglobin 14.1 12.2-16.2 g/dL Hematocrit 41.9 36.0-46.0 % Mean Corpuscular Volume 80.5 80.0-100.0 fL Mean Corpuscular Hemoglobin 27.0 L 28.0-32.0 pg Mean Corpuscular Hemoglobin Concent 33.6 32.0-36.0 g/dL Red Cell Distribution Width 14.6 H 11.8-14.3 % Platelet Count 174 140-450 10^3/uL Mean Platelet Volume 10.7 6.9-10.8 fL Neutrophils (%) (Auto) 62.4 37.0-80.0 % Lymphocytes (%) (Auto) 29.3 10.0-50.0 % Monocytes (%) (Auto) 6.7 0.0-12.0 % Eosinophils (%) (Auto) 1.2 0.0-7.0 % Basophils (%) (Auto) 0.4 0.0-2.0 % Neutrophils # (Auto) 3.7 1.6-8.6 10 ^3/uL Lymphocytes # (Auto) 1.7 0.4-5.4 10 ^3/uL Monocytes # (Auto) 0.4 0-1.3 10 ^3/uL Eosinophils # (Auto) 0.1 0-0.8 10 ^3/uL Basophils # (Auto) 0 0-0.2 10 ^3/uL Nucleated Red Blood Cells 0.1 % Prothrombin Time 10.9 9.3-11.8 sec Prothrombin Time INR 1.03 0.9-1.15 Activated Partial Thromboplast Time 29.6 24.5-34.5 SEC Sodium Level 141 136-145 mmol/L Potassium Level 3.4 L 3.5-5.1 mmol/L Chloride Level 103 98-107 mmol/L Carbon Dioxide Level 27 20-31 mmol/L Anion Gap 11 5-15 Blood Urea Nitrogen 10 9-23 mg/dL Creatinine 0.81 0.550-1.02 mg/dL Glomerular Filtration Rate Calc 103 >90 mL/min BUN/Creatinine Ratio 12.3 10.0-20.0 Serum Glucose 87 74-106 mg/dL Hemoglobin A1c 4.7 <5.7 % A1C Calcium Level 10.2 8.7-10.4 mg/dL Total Bilirubin 1.9 H 0.2-1.0 mg/dL Direct Bilirubin 0.6 H <0.3 mg/dL Aspartate Amino Transferase (AST) 12 L 13-40 U/L Alanine Aminotransferase (ALT) 14 7-40 U/L Alkaline Phosphatase 72 46-116 U/L Lactate Dehydrogenase 163 120-246 U/L Total Protein 7.6 5.7-8.2 g/dL Albumin 5.2 H 3.2-4.8 g/dL Thyroid Stimulating Hormone (TSH) 0.94 0.55-4.78 uIU/mL Beta HCG, Quantitative 0.1 L 1.5-4.2 mIU/mL Plasma/Serum Blood Alcohol < 3.0 <10 mg/dL Test 12/18/24 13:00 12/18/24 11:04 Range/Units Urine Color Yellow Yellow Urine Clarity Clear Clear Urine pH 5.5 5.0-9.0 Urine Specific [place] 1.028 1.001-1.035 Urine Protein Negative Negative Urine Ketones 1+ H Negative Urine Blood Negative Negative /uL Urine Nitrite Negative Negative Urine Bilirubin Negative Negative Urine Urobilinogen Normal Negative mg/dL Urine Leukocyte Esterase 2+ Negative /uL Urine RBC 2 0 - 4 /hpf Urine Microscopic WBC 7 H 0-5 /HPF Urine Squamous Epithelial Cells Few <5 /hpf Urine Bacteria Few H None Seen /hpf Urine Mucus Few None Seen Urine Glucose Normal Normal mg/dL Lipase 23 12-53 U/L Assessment Acute intractable abdominal pain Gallbladder sludge Right upper quadrant ultrasound and HIDA scan unremarkable MRCP largely unremarkable Plan: Scheduled for EGD tomorrow Protonix GI cocktail Clear liquid diet Plan discussed with Dr. Maki Plan discussed with: Patient, Other (RN) EDWIGE REEVES RESIDENT Dec 19, 2024 14:54
[2024-12-19 18:30] VITALS: BP 151/78; PULSE 55; RESP 16; TEMP 97.9; O2SAT 100
[2024-12-19] MEDS: MORPHINE SULFATE INJ 2 MG/ml SYRG IV PRN (18:40)
[2024-12-19 20:10] VITALS: BP 139/88; PULSE 98; RESP 20; TEMP 97.7; O2SAT 99
[2024-12-20] VITALS (11 sets, daily range): BP systolic 107–133; BP diastolic 60–84; PULSE 55–82; RESP 16–20; TEMP 97.6–98.6; O2SAT 97–100
[2024-12-20 06:29] LABS: Rapid Influenza A Negative (Negative); Rapid Influenza B Negative (Negative)
[2024-12-20 06:50] LABS: Chloride 102 mmol/L (98-107); Sodium 139 mmol/L (136-145)
[2024-12-20 06:51] LABS: Anion Gap 11 (5-15); Calcium 9.7 mg/dL (8.7-10.4); Carbon Dioxide 26 mmol/L (20-31)
[2024-12-20 06:56] LABS: Blood Urea Nitrogen 12 mg/dL (9-23)
[2024-12-20 07:00] LABS: Glucose 67 mg/dL (74-106)
--- NOTE | 2024-12-20 07:13 | DVH ---
EXAM: XR Chest, 1 View CLINICAL INDICATION: egd TECHNIQUE: Frontal view of the chest. COMPARISON: None FINDINGS: LUNGS AND PLEURAL SPACES: Unremarkable. No consolidation. No pneumothorax. HEART: Unremarkable. No cardiomegaly. MEDIASTINUM: Unremarkable. Normal mediastinal contour. BONES/JOINTS: Unremarkable. No acute fracture. OTHER FINDINGS: . None. IMPRESSION: No acute cardiopulmonary process.
[2024-12-20 07:14] LABS: Basophils # (auto) 0 10 ^3/uL (0-0.2); Basophils % (auto) 0.3 % (0.0-2.0); Eosinophils # (auto) 0 10 ^3/uL (0-0.8); Eosinophils % (auto) 0.7 % (0.0-7.0); Hematocrit 38.4 % (36.0-46.0); Hemoglobin 13.3 g/dL (12.2-16.2); Lymphocytes # (auto) 1.4 10 ^3/uL (0.4-5.4); Lymphocytes % (auto) 20.9 % (10.0-50.0); Mean Corpuscular Hgb Conc. 34.7 g/dL (32.0-36.0); Mean Corpuscular Volume 80.5 fL (80.0-100.0); Monocytes # (auto) 0.3 10 ^3/uL (0-1.3); Monocytes % (auto) 5.2 % (0.0-12.0); Neutrophils # (auto) 4.7 10 ^3/uL (1.6-8.6); Neutrophils % (auto) 72.9 % (37.0-80.0); Platelet Count (auto) 156 10^3/uL (140-450); Red Blood Cells 4.77 10^6/uL (4.0-5.20); Red Cell Distribution Width 14.3 % (11.8-14.3); White Blood Cell 6.5 10^3/uL (4.4-10.8)
[2024-12-20] MEDS ORDERED: NALOXONE HCL 0.4 MG/ML VIAL ONE (07:14)
[2024-12-20] MEDS ORDERED: SODIUM CHLORIDE LOCK 10 ML ONE (07:14)
[2024-12-20] MEDS ORDERED: FLUMAZENIL 0.1 MG/ML INJ 10ML MDV IV ONE (07:14)
[2024-12-20] MEDS: LIDOCAINE VISCOUS 2% 15ML UD ONE (08:42)
[2024-12-20] MEDS: fentaNYL CITRATE 100 MCG/2 ML VL ONE (08:44)
[2024-12-20] MEDS: diphenhdrAMINE HCL 50 MG/1 ML VL ONE (08:44)
[2024-12-20] MEDS: MIDAZOLAM HCL 5 MG/ML-1ML VIAL ONE (08:44)
--- NOTE | 2024-12-20 09:39 | DVHOP2 ---
Operative Report DATE OF OPERATION: 12/20/24 PROCEDURE: Upper Endoscopy with biopsy PREOPERATIVE INDICATION: The patient is a 24 -year-old female undergoing endoscopy for epigastric and right upper quadrant pain POSTOPERATIVE DIAGNOSES: 1. Minimal gastritis otherwise essentially normal endoscopy up to the 3rd part of the duodenum PROCEDURE PERFORMED BY: Aram Maki GI NURSE: Barb SCOPE: Olympus videoendoscope. ASA CLASS: 2. PREOPERATIVE MEDICATIONS: Versed 5 mg, Fentanyl 100 mcg, Benadryl 50 mg I administered moderate sedation throughout this _8_ minutes procedure. An independent trained observer pushed medications at my direction, and monitored the patient's level of consciousness and physiological status throughout. PROCEDURE IN DETAIL: After obtaining an informed consent, the patient was placed on left lateral decubitus position. The patient was then sedated with the above medications. A bite block was placed between her teeth. The endoscope was then passed through the oropharynx, into the esophagus, and through the stomach and pylorus up to the second and third part of the duodenum. The endoscope was then withdrawn. The 2nd and 3rd part of the duodenal and the duodenal bulb were normal. Duodenal biopsies were obtained The pre-pyloric area antrum showed minimal gastritis with pylorospasm. Gastric biopsies were obtained. On retroflexion the fundus cardia and angularis were normal. The endoscope was then withdrawn into the distal esophagus. Patient had a slightly irregular squamocolumnar junction with columnar epithelium extending into the distal esophagus for 2-3 mm but no significant esophagitis or hiatal hernia The remaining distal and proximal esophagus and oropharynx were unremarkable The patient tolerated the procedure well without difficulty. COMPLICATIONS : None SPECIMENS: Duodenal biopsies Gastric biopsies DISPOSITION: Transfer back to the floor Stable PLAN: 1. Await for biopsy result 2. Will place pt on Protonix 40 mg p.o. daily 3. Resume GI soft diet advance as tolerated 4. Outpatient follow up with me in 4-6 weeks or as needed for ongoing GI management ARAM MAKI MD Dec 20, 2024 09:39
--- NOTE | 2024-12-20 10:33 | DVHINCON2 ---
DATE OF CONSULTATION: 12/20/2024 SURGICAL CONSULTATION HISTORY OF PRESENT ILLNESS: The patient is a 24-year-old female with a known history of biliary sludge per the patient's report established approximately 1 year ago. She was referred to a surgeon, however, never had a chance to go. She came to the emergency complaining of right upper quadrant abdominal pain radiating to the mid back. The patient's pain has been accompanied by nausea and vomiting. The patient's symptoms become aggravated by eating. She had in the past, otherwise no abdominal or chest surgeries. She has family history of diabetes. She is a nonsmoker, occasional drinker, marijuana user and SHE IS ALLERGIC TO METOCLOPRAMIDE. REVIEW OF SYSTEMS: Occasional food intolerance, right upper quadrant abdominal pains. She has a history of depression and anxiety. Otherwise, review of 12 systems yields no significant contributory factors. PHYSICAL EXAMINATION: GENERAL: She is a well-developed, well-nourished female. HEENT: Pupils are equal, round, reactive to light equally. Sclerae nonicteric. Ocular motion is intact. NECK: Supple. No palpable lymphadenopathies. No audible bruits. LUNGS: Clear bilaterally. HEART: Regular rate and rhythm without murmur. ABDOMEN: The abdomen is tender in the right upper quadrant with guarding. There is no rebound tenderness. There is no evidence of peritoneal irritation. The patient has no CVA tenderness. EXTREMITIES: No peripheral vascular insufficiency. No venous stasis. LABORATORY DATA: The patient underwent laboratory evaluation. Her white cell count has been normal with a normal differential, platelet count 174 on admission. White count remains normal throughout her hospitalization with H and H being stable, platelet count remaining normal. The patient's PT is 10.9, INR is 1.03. Chemistry was done showing normal electrolytes. On admission, her bilirubin was 1.7, steadily increasing to 2.3 today. The patient's test is pending. The patient's imaging consisted of gallbladder ultrasound, which shows no evidence of cholecystitis, gallstones or biliary dilatation. Common bile duct is normal size. The patient had a CT scan of the abdomen and pelvis, which was done without contrast showing no abdominal or pelvic findings, no hydronephrosis, no nephrolithiasis. The patient's abdomen is without ascites. Pancreas is normal. Gallbladder is unremarkable. Biliary tree is nondilated. Subsequently, the patient underwent an MRCP. The MRCP shows gallbladder sludge. No findings of cholecystitis or choledocholithiasis. A HIDA scan was performed, which shows prompt visualization of the gallbladder and normal excretion into the small bowel. ASSESSMENT AND PLAN: Due to the patient's persistent pain in the right upper quadrant, tenderness in the right upper quadrant, nausea and vomiting and the sludge in the gallbladder, I explained to the patient that she has confusing symptomatology, however, it is possible that she has a low-grade cholecystitis and due to the elevated bilirubin, I believe it is reasonable to proceed with a cholecystectomy, however, cannot give her a guarantee that the operation will relieve her symptoms. She wishes to proceed MIKI. The operation, risks and potential complications were explained in detail. MD VITALY Sauceda/MAREK TID: [id number] RECEIPT: [id number]
[2024-12-20] MEDS: SODIUM CHLORIDE 0.9% 1,000 ML IV SCH (10:49)
[2024-12-20] MEDS: PANTOPRAZOLE 40 MG TAB PO SCH (10:56)
--- NOTE | 2024-12-20 11:35 | DVHPNRES ---
Progress Note Date Seen: Dec 20, 2024 Resident Creating Document: CALLIE SCOTT RESIDENT Medical Necessity Reason Pt with a Central, PICC or Fol: No Subjective Review of Systems Cheyanne Dexter is a 24-year-old female with a PMH of depression, anxiety presented to the ED with the chief complaints of abdominal pain. Patient seen and examined at the bedside. Reported improvement in her abdominal pain since admission. GI consulted and evaluated the patient on performed an EGD today. MRCP scan showing biliary sludge. Objective vital signs Vital Sign Date Time Temp Pulse Resp B/P (MAP) Pulse Ox O2 Delivery O2 Flow Rate FiO2 12/20/24 10:39 70 18 128/69 12/20/24 09:42 98.3 100 98.3 12/20/24 08:58 Nasal Cannula 5.0 100 Total Intake and Output 12/19/24 12/19/24 12/20/24 15:00 23:00 07:00 Intake Total 0 ml Balance 0 ml medications Current Medications Medications Dose Ordered Sig/Mili Route Start Time Stop Time Status Last Admin Dose Admin Ceftriaxone Sodium 50 ml @ 100 mls/hr DAILY@09 IV 12/19/24 09:00 12/20/24 10:39 100 MLS/HR Acetaminophen/ Hydrocodone Bitart 1 tab Q4HP PRN PO 12/18/24 18:00 12/19/24 06:25 1 TAB Ondansetron HCl 4 mg Q4HP PRN IV 12/18/24 18:00 12/20/24 08:03 4 MG Acetaminophen 650 mg Q6HP PRN PO 12/18/24 18:00 Morphine Sulfate 2 mg Q4HPRN PRN IV 12/19/24 13:15 12/20/24 10:39 2 MG Pantoprazole Sodium 40 mg DAILY@0600 PO 12/20/24 10:00 12/20/24 10:56 40 MG Sodium Chloride 1,000 ml @ 75 mls/hr [id number] IV 12/20/24 10:00 12/20/24 10:49 75 MLS/HR Sucralfate 1 gm BID@0600,2200 GT 12/20/24 22:00 Examination General Appearance: Alert, Oriented X3, Cooperative, severe distress due to pain HEENT: Atraumatic, Mucous membranes dry Respiratory: Clear to auscultation, Normal air movement, No added sounds Cardiovascular: Regular rate, Normal S1, Normal S2, No murmurs Abdominal: Mild improvement in epigastrium and right upper quadrant tenderness Active bowel sounds, Soft, no distention, Extremities: No edema, Normal pulses, No tenderness/swelling Skin: No Significant rash, except past surgical scars Neuro: Normal speech, sensorimotor deficits none Psych/Mental Status: Mental status NL, Mood NL Nurse was there as sharperone during examination laboratory and microbiology Laboratory Tests 12/20/24 06:14 Test 12/20/24 06:14 Range/Units Serum Glucose 67 L 74-106 mg/dL Labs and/or images reviewed: Labs reviewed by me, Image(s) reviewed by me Problem List/Assessment/Plan Problem List/Assessment/Plan # Acute abdominal pain # Rule out Acute Cholecystitis # hyperbilirubinemia likely direct - CT abdominal pelvis showed No acute abdominal or pelvic findings. No hydronephrosis or nephrolithiasis. - Gallbladder ultrasound showed no evidence of cholecystitis gallstones or biliary dilatation. - HIDA scans Unremarkable hepatobiliary study without evidence of acute cholecystitis. - consulted surgery, advised MRCP due to given elevated bilirubin, showing biliary sludge - Supportive management with the pain management, IVF, Zofran # ? PUD - Protonix - GI cocktail - GI on board, advised to do EGD, done today -EGD showing mild gastritis, advised to continue current management # Acute complicated UTI - evident on urinalysis - ordered urine bacterial culture - currently giving Rocephin # Hypokalemia - Repleting - Monitor lab Protonox SCDs NPO Goals of care discussed with the patient for more than 27 minutes: Full code status Case discussed with Dr. Brown, patient and nurse Plan discussed with: Patient My Orders My Orders Orders - CALLIE SCOTT RESIDENT Procedure Category Date Status Time Electrocardigram EKG 12/20/24 Logged 00:38 Chest Portable XY 12/20/24 Resulted 00:38 Sucralfate Susp PHA 12/20/24 In Process (Carafate Susp) 22:00 Date of Service: Dec 20, 2024 Billing Provider: ROXI ESPOSITO MD Common Visit Codes: [id number] INP/OBS CARE(HIGH) CALLIE SCOTT Dec 20, 2024 11:35 ROXI ESPOSITO MD Dec 25, 2024 00:30
--- NOTE | 2024-12-20 14:44 | ECG ---
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
[2024-12-20] MEDS: SUCRALFATE 1 GM/10 ML ORAL SUSP GT SCH (21:01)
[2024-12-21] VITALS (9 sets, daily range): BP systolic 112–128; BP diastolic 54–85; PULSE 53–89; RESP 17–22; TEMP 97.5–98; O2SAT 95–100
[2024-12-21] MEDS: LIDOCAINE W/ EPINEPHRINE 1% 20ML VIAL ONE (05:56)
[2024-12-21] MEDS: BUPIVACAINE HCL 0.25% P/F 10 ML VIAL ONE (05:57)
[2024-12-21] MEDS: ceFAZolin 2 GM/D5W100ml 100 ML IV ONE (05:57)
[2024-12-21] MEDS: SUCCINYLCHOLINE CHLORIDE 20 MG/ML 10ML VIAL IV ONE (06:04)
[2024-12-21] MEDS: ROCURONIUM 10MG/ML 10ML VIAL IV ONE (06:04)
[2024-12-21] MEDS: LIDOCAINE 2% JELLY 11ml (GLYDO) ONE (06:12)
[2024-12-21] MEDS ORDERED: MEPERIDINE HCL (50 MG/ML) 1 ML VIAL ONE (06:18)
[2024-12-21] MEDS ORDERED: MIDAZOLAM HCL 2MG/2ML 2ml VIAL (1mg/ml) ONE (06:18)
[2024-12-21] MEDS ORDERED: PROPOFOL 10 MG/ML 20 ML IV ONE (06:18)
[2024-12-21] MEDS ORDERED: LIDOCAINE 1% INJ PF 5ML AMP ONE (06:18)
[2024-12-21] MEDS ORDERED: LIDOCAINE HCL 2% TOP JELLY 5ML TOP ONE (06:18)
[2024-12-21] MEDS ORDERED: ONDANSETRON HCL 4 MG/2 ML VIAL ONE (06:18)
[2024-12-21] MEDS ORDERED: KETAMINE 50mg/ML 1ml syringe ONE (06:18)
[2024-12-21] MEDS ORDERED: fentaNYL CITRATE 100 MCG/2 ML VL ONE (06:18)
[2024-12-21] MEDS ORDERED: DexAMETHasone SOD PHOS 10MG/1ML VIAL INJ ONE (06:18)
[2024-12-21] MEDS ORDERED: SODIUM CHLORIDE LOCK 10 ML ONE (06:18)
[2024-12-21 06:37] LABS: Basophils # (auto) 0 10 ^3/uL (0-0.2); Basophils % (auto) 0.3 % (0.0-2.0); Eosinophils # (auto) 0.1 10 ^3/uL (0-0.8); Eosinophils % (auto) 2.3 % (0.0-7.0); Hematocrit 38.9 % (36.0-46.0); Hemoglobin 13.1 g/dL (12.2-16.2); Lymphocytes # (auto) 1.3 10 ^3/uL (0.4-5.4); Lymphocytes % (auto) 28.3 % (10.0-50.0); Mean Corpuscular Hemoglobin 26.9 pg (28.0-32.0); Mean Corpuscular Hgb Conc. 33.7 g/dL (32.0-36.0); Mean Corpuscular Volume 79.9 fL (80.0-100.0); Monocytes # (auto) 0.4 10 ^3/uL (0-1.3); Monocytes % (auto) 7.8 % (0.0-12.0); Neutrophils # (auto) 2.8 10 ^3/uL (1.6-8.6); Neutrophils % (auto) 61.3 % (37.0-80.0); Nucleated Red Blood Cells % 0.1 %; Platelet Count (auto) 158 10^3/uL (140-450); Red Blood Cells 4.87 10^6/uL (4.0-5.20); Red Cell Distribution Width 14.5 % (11.8-14.3); White Blood Cell 4.6 10^3/uL (4.4-10.8)
[2024-12-21] MEDS ORDERED: SUGAMMADEX 200mg/2ml Vial (100MG/ML) IV ONE (06:42)
[2024-12-21 06:55] LABS: Alanine Aminotransferase < 9 U/L (7-40); Albumin 4.2 g/dL (3.2-4.8); Alkaline Phosphatase 57 U/L (46-116); Anion Gap 10 (5-15); Aspartate Aminotransferase 8 U/L (13-40); BUN/Creatinine Ratio 10.6 (10.0-20.0); Bilirubin, Total 1.9 mg/dL (0.2-1.0); Blood Urea Nitrogen 7 mg/dL (9-23); Calcium 9.6 mg/dL (8.7-10.4); Carbon Dioxide 25 mmol/L (20-31); Chloride 105 mmol/L (98-107); Glucose 76 mg/dL (74-106); Potassium 3.6 mmol/L (3.5-5.1); Sodium 140 mmol/L (136-145); Total Protein 6.6 g/dL (5.7-8.2)
[2024-12-21] MEDS ORDERED: HYDROmorphone HCL 2 MG/ML VL/or syr IV PRN (08:15)
[2024-12-21] MEDS ORDERED: MORPHINE SULFATE 4 MG/ML SYR/VIAL IV PRN (08:15)
[2024-12-21] MEDS: ONDANSETRON HCL 4 MG/2 ML VIAL IV ONE (08:15)
--- NOTE | 2024-12-21 08:27 | DVHOP ---
DATE OF SURGERY: 12/21/2024 PREOPERATIVE DIAGNOSES: Cholelithiasis, cholecystitis. POSTOPERATIVE DIAGNOSES: Cholelithiasis, cholecystitis. SURGEON: Panchito Lindo MD ANESTHESIA: General endotracheal. ANESTHESIOLOGIST: Dr. Rios. PROCEDURE: Laparoscopy, laparoscopic cholecystectomy. DESCRIPTION OF PROCEDURE: Under general endotracheal anesthesia, with the patient's skin prepped and draped, a supraumbilical incision was made and Veress needle inserted into the peritoneal cavity by the hanging drop technique in order to establish pneumoperitoneum by insufflation with carbon dioxide. With the abdomen fully distended to 15 mmHg pressure by insufflation, the needle was removed then replaced with a 5 mm trocar port through which a 0-degree viewing laparoscope was inserted and then under direct vision, an additional 5 mm and 10 mm ports were inserted through the right anterior axillary line at the level of the umbilicus and through the subxiphoid skin in the midline respectively. Instrumentation was then introduced into the peritoneal cavity and laparoscopy was performed. There was no evidence of unexpected pathology on any of the serosal surfaces visualized. The gallbladder was placed on tension and it was chronically inflamed. The cystic duct and cystic artery were identified, circumferentially dissected and then traced into the hepaticocystic triangle so as to minimize the potential for inadvertent injury to the common bile duct. The cystic duct and cystic artery were divided between metallic clips after being skeletonized of surrounding areolar tissue. Following division of these structures, the gallbladder was resected from its liver bed by electrocautery and traction, placed into the specimen extraction bag and withdrawn from the peritoneal cavity through the 10 mm port sites. Subsequently, the right upper quadrant was profusely irrigated. The irrigant was aspirated. Hemostasis was meticulously accomplished and found to be complete. At the termination of procedure, there was no evidence of bleeding from either the port sites or from the liver bed of the gallbladder. Pneumoperitoneum was evacuated. Instrumentation was withdrawn. Fascial defect closed using 0 Vicryl. Wounds approximated using metallic skin yamilet. The patient remained stable throughout the procedure and left the operating room following an accurate needle and sponge count. Her fiance, Chaz, was then informed by phone at [phone]. MD VITALY Sauceda/DANIEL TID: [id number] RECEIPT: [id number]
[2024-12-21] MEDS: HYDROmorphone HCL 2 MG/ML VL/or syr IV PRN (08:41)
[2024-12-21] MEDS ORDERED: MORPHINE SULFATE INJ 2 MG/ml SYRG IV PRN (09:00)
[2024-12-21 10:24] LABS: Hepatitis A Ab IgM Negative; Hepatitis B Core IgM Negative (Negative); Hepatitis B Surface Antigen Negative (Negative); Hepatitis C Antibody Negative (Negative)
--- NOTE | 2024-12-21 10:47 | DVHPNRES ---
Progress Note Date Seen: Dec 21, 2024 Resident Creating Document: CALLIE SCOTT RESIDENT Medical Necessity Reason Pt with a Central, PICC or Fol: No Subjective Review of Systems Cheyanne Dexter is a 24-year-old female with a PMH of depression, anxiety presented to the ED with the chief complaints of abdominal pain. Patient seen and examined at the bedside. postoperative day 0 status post lap cholecystectomy, patient tolerated to the procedure well. Patient is still complaining of abdominal pain and nauseous. Resume diet. Changes from previous H/P or p: No Changes Objective vital signs Vital Sign Date Time Temp Pulse Resp B/P (MAP) Pulse Ox O2 Delivery O2 Flow Rate FiO2 12/21/24 09:30 97.8 70 18 112/54 (73) 96 97.8 12/21/24 08:30 Room Air 100 12/21/24 08:04 7.0 Total Intake and Output 12/20/24 12/20/24 12/21/24 14:59 22:59 06:59 Intake Total 340 ml 1780 ml 400 ml Balance 340 ml 1780 ml 400 ml medications Current Medications Medications Dose Ordered Sig/Mili Route Start Time Stop Time Status Last Admin Dose Admin Ceftriaxone Sodium 50 ml @ 100 mls/hr DAILY@09 IV 12/19/24 09:00 12/21/24 09:53 100 MLS/HR Acetaminophen/ Hydrocodone Bitart 1 tab Q4HP PRN PO 12/18/24 18:00 12/19/24 06:25 1 TAB Ondansetron HCl 4 mg Q4HP PRN IV 12/18/24 18:00 12/21/24 09:00 4 MG Acetaminophen 650 mg Q6HP PRN PO 12/18/24 18:00 Morphine Sulfate 2 mg Q4HPRN PRN IV 12/19/24 13:15 12/21/24 03:39 2 MG Pantoprazole Sodium 40 mg DAILY@0600 PO 12/20/24 10:00 12/20/24 10:56 40 MG Sodium Chloride 1,000 ml @ 75 mls/hr [id number] IV 12/20/24 10:00 12/20/24 21:47 75 MLS/HR Sucralfate 1 gm BID@0600,2200 GT 12/20/24 22:00 12/20/24 21:01 1 GM Dextrose/Lactated Ringer's 1,000 ml @ 100 mls/hr Q10H IV 12/21/24 08:15 Morphine Sulfate 2 mg Q4H PRN IV 12/21/24 08:15 12/21/24 12:16 Morphine Sulfate 1 mg Q30M PRN IV 12/21/24 09:00 12/21/24 11:01 Examination General Appearance: Alert, Oriented X3, Cooperative, severe distress due to pain HEENT: Atraumatic, Mucous membranes dry Respiratory: Clear to auscultation, Normal air movement, No added sounds Cardiovascular: Regular rate, Normal S1, Normal S2, No murmurs Abdominal: Tenderness generalized, abdominal binder in place Extremities: No edema, Normal pulses, No tenderness/swelling Skin: No Significant rash, except past surgical scars Neuro: Normal speech, sensorimotor deficits none Psych/Mental Status: Mental status NL, Mood NL Nurse was there as sharperone during examinatio laboratory and microbiology Laboratory Tests 12/21/24 05:29 Test 12/21/24 05:29 Range/Units Serum Glucose 76 74-106 mg/dL Labs and/or images reviewed: Labs reviewed by me, Image(s) reviewed by me Problem List/Assessment/Plan Problem List/Assessment/Plan # Acute abdominal pain # ? Acute Cholecystitis # symptomatic cholelithiasis # hyperbilirubinemia likely direct - CT abdominal pelvis showed No acute abdominal or pelvic findings. No hydronephrosis or nephrolithiasis. - Gallbladder ultrasound showed no evidence of cholecystitis gallstones or biliary dilatation. - HIDA scans Unremarkable hepatobiliary study without evidence of acute cholecystitis. - consulted surgery, advised MRCP due to given elevated bilirubin, showing biliary sludge - Supportive management with the pain management, IVF, Zofran - postoperative day 0 status post lap cholecystectomy, patient tolerated to the procedure well. -resume diet # ? PUD - Protonix - GI cocktail - GI on board, advised to do EGD, done today -EGD showing mild gastritis, advised to continue current management # Acute complicated UTI - evident on urinalysis - ordered urine bacterial culture - currently giving Rocephin # Hypokalemia - Repleting - Monitor lab Protonox SCDs Clear liquid diet and advanced as tolerated Goals of care discussed with the patient for more than 27 minutes: Full code status Case discussed with Dr. Brown, patient and nurse Plan discussed with: Patient Date of Service: Dec 21, 2024 Billing Provider: ROXI ESPOSITO MD Common Visit Codes: [id number] INP/OBS CARE(HIGH) CALLIE SCOTT RESIDENT Dec 21, 2024 10:47 ROXI ESPOSITO MD Dec 25, 2024 00:48
--- NOTE | 2024-12-21 11:44 | DVHPN2 ---
Progress Note Date Seen: Dec 21, 2024 Resident Creating Document: EDWIGE REEVES RESIDENT Medical Necessity Reason Pt with a Central, PICC or Fol: No Subjective Review of Systems Patient is a 24-year-old female with past medical history of depression and anxiety, who came in due to abdominal pain. Per patient, 2 days ago she started experiencing this abdominal pain associated with bilious diarrhea and vomiting episodes. She describes the pain as sharp with bilateral radiation towards flanks, 10/10. Patient says she also noticed small amount of blood in her vomitus. She reports having similar symptoms 1 year ago when she was told she has gallbladder sludge. Patient had EGD done 4 years ago at [facility], however does not remember the findings. Patient notes eating foods we will aggravate her pain. Patient underwent EGD on 12/20/2024 which showed minimal gastritis. Patient underwent laparoscopic cholecystectomy today, currently is reporting pain and nausea last bowel movement was 12/18/2024. Objective vital signs Vital Sign Date Time Temp Pulse Resp B/P (MAP) Pulse Ox O2 Delivery O2 Flow Rate FiO2 12/21/24 09:30 97.8 70 18 112/54 (73) 96 97.8 12/21/24 08:30 Room Air 100 12/21/24 08:04 7.0 Total Intake and Output 12/20/24 12/20/24 12/21/24 15:00 23:00 07:00 Intake Total 340 ml 1780 ml 400 ml Balance 340 ml 1780 ml 400 ml medications Current Medications Medications Dose Ordered Sig/Mili Route Start Time Stop Time Status Last Admin Dose Admin Ceftriaxone Sodium 50 ml @ 100 mls/hr DAILY@09 IV 12/19/24 09:00 12/21/24 09:53 100 MLS/HR Acetaminophen/ Hydrocodone Bitart 1 tab Q4HP PRN PO 12/18/24 18:00 12/19/24 06:25 1 TAB Ondansetron HCl 4 mg Q4HP PRN IV 12/18/24 18:00 12/21/24 09:00 4 MG Acetaminophen 650 mg Q6HP PRN PO 12/18/24 18:00 Morphine Sulfate 2 mg Q4HPRN PRN IV 12/19/24 13:15 12/21/24 03:39 2 MG Pantoprazole Sodium 40 mg DAILY@0600 PO 12/20/24 10:00 12/20/24 10:56 40 MG Sodium Chloride 1,000 ml @ 75 mls/hr [id number] IV 12/20/24 10:00 12/20/24 21:47 75 MLS/HR Sucralfate 1 gm BID@0600,2200 GT 12/20/24 22:00 12/20/24 21:01 1 GM Dextrose/Lactated Ringer's 1,000 ml @ 100 mls/hr Q10H IV 12/21/24 08:15 Morphine Sulfate 2 mg Q4H PRN IV 12/21/24 08:15 12/21/24 12:16 Examination General Appearance: Cooperative. Well developed. Well nourished. In moderate distress Head Exam: Normal inspection Neck Exam: Normal inspection. Non-tender. Normal alignment Pulmonary/Respiratory: Chest non-tender. Clear bilateral breath sounds, no crackles, no wheezing. Cardiovascular/Chest: Regular rate and rhythm. No murmurs. No JVD. Abdominal Exam: Normal bowel sounds. Soft. normal abdomen, no visible veins, generalized tenderness to palpation, currently abdominal binder in place. No hepatospenomegaly. No masses Ankle Exam: Negative ankle edema Lower extremities: Negative lower extremity edema Neuro/Mental Status: A&O x4. Coherent. Thoughts/Psych: Normal thought pattern. Appropriate mood and affect. Good judgement and insight Skin Exam: Normal inspection. Normal color. Warm. Dry laboratory and microbiology Laboratory Tests 12/21/24 05:29 Test 12/21/24 05:29 Range/Units Serum Glucose 76 74-106 mg/dL Labs and/or images reviewed: Labs reviewed by me, Image(s) reviewed by me Problem List/Assessment/Plan Problem List/Assessment/Plan Acute intractable abdominal pain Gallbladder sludge Gastritis Right upper quadrant ultrasound and HIDA scan unremarkable MRCP largely unremarkable Possible cholecystitis Plan: Completed EGD yesterday Underwent laparoscopic cholecystectomy today Continue Protonix Continue Zofran Pain management per primary team Clear liquid diet Pending hepatitis panel Outpatient follow up with GI as needed Thank you so much for the opportunity to consult on your patient. GI team will follow the patient. In case of any questions or concerns please feel free to reach out. Plan discussed with Dr. Maki Plan discussed with: Patient, Other (RN) EDWIGE REEVES RESIDENT Dec 21, 2024 11:44
[2024-12-21] MEDS: D5W/LACTATED RINGERS 1,000 ML IV SCH (18:04)
[2024-12-21] MEDS: ACETAMINOPHEN 325 MG TAB PO SCH (19:41)
[2024-12-21] MEDS: MORPHINE SULFATE INJ 2 MG/ml SYRG IV PRN (22:17)
[2024-12-22] VITALS (7 sets, daily range): BP systolic 105–130; BP diastolic 58–80; PULSE 59–76; RESP 17–20; TEMP 97.6–98; O2SAT 97–100
[2024-12-22 06:54] LABS: Basophils # (auto) 0 10 ^3/uL (0-0.2); Basophils % (auto) 0.1 % (0.0-2.0); Eosinophils # (auto) 0 10 ^3/uL (0-0.8); Hematocrit 38.8 % (36.0-46.0); Lymphocytes # (auto) 0.8 10 ^3/uL (0.4-5.4); Lymphocytes % (auto) 8.1 % (10.0-50.0); Mean Corpuscular Hemoglobin 27.1 pg (28.0-32.0); Mean Corpuscular Hgb Conc. 33.6 g/dL (32.0-36.0); Mean Corpuscular Volume 80.6 fL (80.0-100.0); Monocytes # (auto) 0.5 10 ^3/uL (0-1.3); Monocytes % (auto) 4.6 % (0.0-12.0); Neutrophils # (auto) 8.6 10 ^3/uL (1.6-8.6); Neutrophils % (auto) 87.2 % (37.0-80.0); Platelet Count (auto) 201 10^3/uL (140-450); Red Blood Cells 4.81 10^6/uL (4.0-5.20); Red Cell Distribution Width 14.4 % (11.8-14.3); White Blood Cell 9.8 10^3/uL (4.4-10.8)
[2024-12-22 07:05] LABS: Anion Gap 12 (5-15); Carbon Dioxide 25 mmol/L (20-31); Chloride 101 mmol/L (98-107); Potassium 4.2 mmol/L (3.5-5.1); Sodium 138 mmol/L (136-145)
[2024-12-22 07:06] LABS: Calcium 10.3 mg/dL (8.7-10.4)
[2024-12-22 07:11] LABS: BUN/Creatinine Ratio 9.2 (10.0-20.0); Glucose 85 mg/dL (74-106)
[2024-12-22 07:12] LABS: Blood Urea Nitrogen 6 mg/dL (9-23)
[2024-12-22 07:15] LABS: Bilirubin, Total 1.3 mg/dL (0.2-1.0)
--- NOTE | 2024-12-22 11:27 | DVHPN2 ---
Progress Note Date Seen: Dec 22, 2024 Medical Necessity Reason Pt with a Central, PICC or Fol: No Objective vital signs Vital Sign Date Time Temp Pulse Resp B/P (MAP) Pulse Ox O2 Delivery O2 Flow Rate FiO2 12/22/24 09:00 97.7 62 18 130/58 (82) 99 97.7 12/21/24 20:00 Room Air* 0 21 Total Intake and Output 12/21/24 12/21/24 12/22/24 15:00 23:00 07:00 Intake Total 480 ml 500 ml 2075 ml Balance 480 ml 500 ml 2075 ml medications Current Medications Medications Dose Ordered Sig/Mili Route Start Time Stop Time Status Last Admin Dose Admin Ceftriaxone Sodium 50 ml @ 100 mls/hr DAILY@09 IV 12/19/24 09:00 12/22/24 09:13 100 MLS/HR Ondansetron HCl 4 mg Q4HP PRN IV 12/18/24 18:00 12/22/24 06:13 4 MG Pantoprazole Sodium 40 mg DAILY@0600 PO 12/20/24 10:00 12/22/24 06:12 40 MG Sodium Chloride 1,000 ml @ 75 mls/hr [id number] IV 12/20/24 10:00 12/22/24 05:25 75 MLS/HR Sucralfate 1 gm BID@0600,2200 GT 12/20/24 22:00 12/22/24 06:12 1 GM Dextrose/Lactated Ringer's 1,000 ml @ 100 mls/hr Q10H IV 12/21/24 08:15 12/21/24 18:04 100 MLS/HR Acetaminophen 650 mg Q6HP PO 12/21/24 18:00 12/22/24 06:13 650 MG Acetaminophen/ Hydrocodone Bitart 1 tab Q4HP PRN PO 12/21/24 18:00 Hold laboratory and microbiology Laboratory Tests 12/22/24 04:57 Test 12/22/24 04:57 Range/Units Serum Glucose 85 74-106 mg/dL Problem List/Assessment/Plan Problem List/Assessment/Plan 12/19/24 preliminary vitis:patient out of her bed "gone for imaging", after reviewing her chart I ordered an MRCP as there is a possibility she may have passed a gallstone (no stones in GB on ultrasound, typical pain and elevated bilirubin, in combination with patient stating she was told in the past she has gallstones.complete consultation will follow after completion of w/u 12/22/24 feels a lot better, c/o right shoulder radha, explained etiology, abdomen is soft appropriately tender, wounds clean and well approximated, labs OK, she will be discharged tomorrow Plan discussed with: Patient Dietary Evaluation Review Comments: 1) Advance diet as medically feasible 2) Continue current plan of care Expected Outcomes/Goals: Pt will meet >75% estimated needs Fu 2-3 days SERENITY VU MD Dec 22, 2024 11:27
[2024-12-22] MEDS: HYDROcodone-ACET 10/325MG TAB PO PRN (11:38)
[2024-12-22] MEDS ORDERED: BUSP15TA60 PO (12:35)
[2024-12-22] MEDS ORDERED: ESCI1TAB36 PO (12:35)
[2024-12-22] MEDS ORDERED: ARIP20TA4 PO (12:35)
--- NOTE | 2024-12-22 13:37 | DVHPN2 ---
Progress Note Date Seen: Dec 22, 2024 Resident Creating Document: EDWIGE REEVES RESIDENT Medical Necessity Reason Pt with a Central, PICC or Fol: No Subjective Review of Systems Patient is a 24-year-old female with past medical history of depression and anxiety, who came in due to abdominal pain. Per patient, 2 days ago she started experiencing this abdominal pain associated with bilious diarrhea and vomiting episodes. She describes the pain as sharp with bilateral radiation towards flanks, 10/10. Patient says she also noticed small amount of blood in her vomitus. She reports having similar symptoms 1 year ago when she was told she has gallbladder sludge. Patient had EGD done 4 years ago at [facility], however does not remember the findings. Patient notes eating foods we will aggravate her pain. Patient underwent EGD on 12/20/2024 which showed minimal gastritis. Patient underwent laparoscopic cholecystectomy yesterday currently is reporting pain and nausea last bowel movement was 12/18/2024. Patient was postoperative day 1, seen and examined at bedside. Reports much improvement in her abdominal pain, is able to pass gas, however has not had a bowel movement yet. She is able to ambulate. Objective vital signs Vital Sign Date Time Temp Pulse Resp B/P (MAP) Pulse Ox O2 Delivery O2 Flow Rate FiO2 12/22/24 09:00 97.7 62 18 130/58 (82) 99 97.7 12/22/24 08:00 Room Air* 0 21 Total Intake and Output 12/21/24 12/21/24 12/22/24 15:00 23:00 07:00 Intake Total 480 ml 500 ml 2075 ml Balance 480 ml 500 ml 2075 ml medications Current Medications Medications Dose Ordered Sig/Mili Route Start Time Stop Time Status Last Admin Dose Admin Ceftriaxone Sodium 50 ml @ 100 mls/hr DAILY@09 IV 12/19/24 09:00 12/22/24 09:13 100 MLS/HR Ondansetron HCl 4 mg Q4HP PRN IV 12/18/24 18:00 12/22/24 06:13 4 MG Pantoprazole Sodium 40 mg DAILY@0600 PO 12/20/24 10:00 12/22/24 06:12 40 MG Sodium Chloride 1,000 ml @ 75 mls/hr [id number] IV 12/20/24 10:00 12/22/24 05:25 75 MLS/HR Sucralfate 1 gm BID@0600,2200 GT 12/20/24 22:00 12/22/24 06:12 1 GM Dextrose/Lactated Ringer's 1,000 ml @ 100 mls/hr Q10H IV 12/21/24 08:15 12/21/24 18:04 100 MLS/HR Acetaminophen 650 mg Q6HP PO 12/21/24 18:00 12/22/24 06:13 650 MG Acetaminophen/ Hydrocodone Bitart 1 tab Q4HP PRN PO 12/21/24 18:00 12/22/24 11:38 1 TAB Examination General Appearance: Cooperative. Well developed. Well nourished. In moderate distress Head Exam: Normal inspection Neck Exam: Normal inspection. Non-tender. Normal alignment Pulmonary/Respiratory: Chest non-tender. Clear bilateral breath sounds, no crackles, no wheezing. Cardiovascular/Chest: Regular rate and rhythm. No murmurs. No JVD. Abdominal Exam: Normal bowel sounds. Soft. normal abdomen, no visible veins, generalized tenderness to palpation, currently abdominal binder in place. No hepatospenomegaly. No masses Ankle Exam: Negative ankle edema Lower extremities: Negative lower extremity edema Neuro/Mental Status: A&O x4. Coherent. Thoughts/Psych: Normal thought pattern. Appropriate mood and affect. Good judgement and insight Skin Exam: Normal inspection. Normal color. Warm. Dry laboratory and microbiology Laboratory Tests 12/22/24 04:57 Test 12/22/24 04:57 Range/Units Serum Glucose 85 74-106 mg/dL Labs and/or images reviewed: Labs reviewed by me, Image(s) reviewed by me Problem List/Assessment/Plan Problem List/Assessment/Plan Acute intractable abdominal pain Gallbladder sludge Gastritis Right upper quadrant ultrasound and HIDA scan unremarkable MRCP largely unremarkable Possible cholecystitis Plan: Completed EGD yesterday Underwent laparoscopic cholecystectomy yesterday Continue Protonix Continue Zofran Pain management per primary team Clear liquid diet Pending hepatitis panel Outpatient follow up with GI as needed Advanced to mechanical soft diet Thank you so much for the opportunity to consult on your patient. GI team will follow the patient. In case of any questions or concerns please feel free to reach out. Plan discussed with Dr. Maki Plan discussed with: Patient, Other (RN) Dietary Evaluation Review Comments: 1) Advance diet as medically feasible 2) Continue current plan of care Expected Outcomes/Goals: Pt will meet >75% estimated needs Fu 2-3 days EDWIGE REEVES RESIDENT Dec 22, 2024 13:37
--- NOTE | 2024-12-22 14:52 | DVHPNRES ---
Progress Note Date Seen: Dec 22, 2024 Resident Creating Document: CALLIE SCOTT RESIDENT Medical Necessity Reason Pt with a Central, PICC or Fol: No Subjective Review of Systems Cheyanne Dexter is a 24-year-old female with a PMH of depression, anxiety presented to the ED with the chief complaints of abdominal pain. Patient seen and examined at the bedside. postoperative day 1 status post lap cholecystectomy, patient tolerated to the procedure well. Patient reported significant improvement in his abdominal pain, resumed diet. Possible DC tomorrow. Patient reports: No new complaints, Feels better Objective vital signs Vital Sign Date Time Temp Pulse Resp B/P (MAP) Pulse Ox O2 Delivery O2 Flow Rate FiO2 12/22/24 09:00 97.7 62 18 130/58 (82) 99 97.7 12/22/24 08:00 Room Air* 0 21 Total Intake and Output 12/21/24 12/21/24 12/22/24 15:00 23:00 07:00 Intake Total 480 ml 500 ml 2075 ml Balance 480 ml 500 ml 2075 ml medications Current Medications Medications Dose Ordered Sig/Mili Route Start Time Stop Time Status Last Admin Dose Admin Ceftriaxone Sodium 50 ml @ 100 mls/hr DAILY@09 IV 12/19/24 09:00 12/22/24 09:13 100 MLS/HR Ondansetron HCl 4 mg Q4HP PRN IV 12/18/24 18:00 12/22/24 06:13 4 MG Pantoprazole Sodium 40 mg DAILY@0600 PO 12/20/24 10:00 12/22/24 06:12 40 MG Sodium Chloride 1,000 ml @ 75 mls/hr [id number] IV 12/20/24 10:00 12/22/24 05:25 75 MLS/HR Sucralfate 1 gm BID@0600,2200 GT 12/20/24 22:00 12/22/24 06:12 1 GM Dextrose/Lactated Ringer's 1,000 ml @ 100 mls/hr Q10H IV 12/21/24 08:15 12/21/24 18:04 100 MLS/HR Acetaminophen 650 mg Q6HP PO 12/21/24 18:00 12/22/24 06:13 650 MG Acetaminophen/ Hydrocodone Bitart 1 tab Q4HP PRN PO 12/21/24 18:00 12/22/24 11:38 1 TAB Examination General Appearance: Alert, Oriented X3, Cooperative, no distress HEENT: Atraumatic, Mucous membranes dry Respiratory: Clear to auscultation, Normal air movement, No added sounds Cardiovascular: Regular rate, Normal S1, Normal S2, No murmurs Abdominal: Tenderness generalized, abdominal binder in place Extremities: No edema, Normal pulses, No tenderness/swelling Skin: No Significant rash, except past surgical scars Neuro: Normal speech, sensorimotor deficits none Psych/Mental Status: Mental status NL, Mood NL Nurse was there as sharperone during examination laboratory and microbiology Laboratory Tests 12/22/24 04:57 Test 12/22/24 04:57 Range/Units Serum Glucose 85 74-106 mg/dL Labs and/or images reviewed: Labs reviewed by me, Image(s) reviewed by me Problem List/Assessment/Plan Problem List/Assessment/Plan # Acute abdominal pain # ? Acute Cholecystitis # symptomatic cholelithiasis # hyperbilirubinemia likely direct - CT abdominal pelvis showed No acute abdominal or pelvic findings. No hydronephrosis or nephrolithiasis. - Gallbladder ultrasound showed no evidence of cholecystitis gallstones or biliary dilatation. - HIDA scans Unremarkable hepatobiliary study without evidence of acute cholecystitis. - consulted surgery, advised MRCP due to given elevated bilirubin, showing biliary sludge - Supportive management with the pain management, IVF, Zofran - postoperative day 1 status post lap cholecystectomy, patient tolerated to the procedure well. -resume diet # ? PUD - Protonix - GI cocktail - GI on board, advised to do EGD, done today -EGD showing mild gastritis, advised to continue current management # Acute complicated UTI - evident on urinalysis - ordered urine bacterial culture - currently giving Rocephin # Hypokalemia - Repleting - Monitor lab Protonox SCDs Clear liquid diet and advanced as tolerated Goals of care discussed with the patient for more than 27 minutes: Full code status Case discussed with Dr. Brown, patient and nurse Plan discussed with: Patient My Orders My Orders Orders - CALLIE SCOTT RESIDENT Procedure Category Date Status Time Acetaminophen Tablet PHA 12/21/24 In Process (Tylenol Tablet) 18:00 Hydrocodone-Acet PHA 12/21/24 In Process 10/325mg Tab ([place] 18:00 Dietary Evaluation Review Comments: 1) Advance diet as medically feasible 2) Continue current plan of care Expected Outcomes/Goals: Pt will meet >75% estimated needs Fu 2-3 days Date of Service: Dec 22, 2024 Billing Provider: ROXI ESPOSITO MD Common Visit Codes: 70339-[id number] INP/OBS CARE(HIGH) CALLIE SCOTT RESIDENT Dec 22, 2024 14:52 ROXI ESPOSITO MD Dec 25, 2024 01:06
[2024-12-22] MEDS: MORPHINE SULFATE INJ 2 MG/ml SYRG IV PRN (15:20)
[2024-12-23 01:00] VITALS: BP 106/64; PULSE 55; RESP 18; TEMP 97.8; O2SAT 97
[2024-12-23 05:00] VITALS: BP 111/58; PULSE 60; RESP 18; TEMP 97.5; O2SAT 96
[2024-12-23] MEDS: LACTULOSE 20Gm/30ML SOLN PO SCH (06:17)
[2024-12-23 08:36] VITALS: BP 116/68; PULSE 51; RESP 15; TEMP 98.3; O2SAT 98
--- NOTE | 2024-12-23 08:53 | DVHPN2 ---
Progress Note Date Seen: Dec 23, 2024 Medical Necessity Reason Pt with a Central, PICC or Fol: No Objective vital signs Vital Sign Date Time Temp Pulse Resp B/P (MAP) Pulse Ox O2 Delivery O2 Flow Rate FiO2 12/23/24 08:36 98.3 51 15 116/68 (84) 98 98.3 12/22/24 20:00 Room Air* 0 21 Total Intake and Output 12/22/24 12/22/24 12/23/24 15:00 23:00 07:00 Intake Total 50 ml 3010 ml 1150 ml Balance 50 ml 3010 ml 1150 ml medications Current Medications Medications Dose Ordered Sig/Mili Route Start Time Stop Time Status Last Admin Dose Admin Ceftriaxone Sodium 50 ml @ 100 mls/hr DAILY@09 IV 12/19/24 09:00 12/22/24 09:13 100 MLS/HR Ondansetron HCl 4 mg Q4HP PRN IV 12/18/24 18:00 12/22/24 06:13 4 MG Pantoprazole Sodium 40 mg DAILY@0600 PO 12/20/24 10:00 12/23/24 05:34 40 MG Sodium Chloride 1,000 ml @ 75 mls/hr [id number] IV 12/20/24 10:00 12/22/24 18:25 75 MLS/HR Sucralfate 1 gm BID@0600,2200 GT 12/20/24 22:00 12/23/24 05:34 1 GM Acetaminophen 650 mg Q6HP PO 12/21/24 18:00 12/23/24 05:34 650 MG Acetaminophen/ Hydrocodone Bitart 1 tab Q4HP PRN PO 12/21/24 18:00 12/22/24 21:44 1 TAB Morphine Sulfate 2 mg Q4HPRN PRN IV 12/22/24 15:15 12/23/24 05:35 2 MG Lactulose 30 ml BID PO 12/23/24 06:15 12/23/24 06:17 30 ML laboratory and microbiology Laboratory Tests 12/22/24 04:57 Test 12/22/24 04:57 Range/Units Serum Glucose 85 74-106 mg/dL Problem List/Assessment/Plan Problem List/Assessment/Plan 12/19/24 preliminary vitis:patient out of her bed "gone for imaging", after reviewing her chart I ordered an MRCP as there is a possibility she may have passed a gallstone (no stones in GB on ultrasound, typical pain and elevated bilirubin, in combination with patient stating she was told in the past she has gallstones.complete consultation will follow after completion of w/u 12/22/24 feels a lot better, c/o right shoulder radha, explained etiology, abdomen is soft appropriately tender, wounds clean and well approximated, labs OK, she will be discharged tomorrow doing well, cleared for discharge, to return to see me in the office in two weeks, diet as TOLERATED, MAY SHOWER, CALL ME WITH ANY PROBLEMS Plan discussed with: Patient Dietary Evaluation Review Comments: 1) Advance diet as medically feasible 2) Continue current plan of care Expected Outcomes/Goals: Pt will meet >75% estimated needs Fu 2-3 days SERENITY VU MD Dec 23, 2024 08:53
[2024-12-23] MEDS: LOPERAMIDE HCL 2 MG CAP/TAB PO ONE (11:39)
[2024-12-23 12:24] VITALS: BP 120/60; PULSE 51; RESP 16; TEMP 98; O2SAT 98
[2024-12-23 13:55] VITALS: BP 121/63; PULSE 66; RESP 18
--- NOTE | 2024-12-23 14:52 | DVHDSRES ---
Discharge Summary Date of Admission Resident Creating Document: YOSVANY HODGSON RESIDENT Dec 18, 2024 at 17:59 Date of Discharge: Dec 23, 2024 Admitting Diagnosis Intractable abdominal pain Wounds: No wound was present on admission but upon discharge, the patient has cholecystectomy surgical wounds Labs/Diagnostic Data: Laboratory Results Test 12/23/24 05:49 12/22/24 04:57 12/21/24 05:29 12/20/24 18:00 Total Bilirubin 0.5 mg/dL (0.2-1.0) White Blood Count 9.8 10^3/uL (4.4-10.8) Red Blood Count 4.81 10^6/uL (4.0-5.20) Hemoglobin 13.0 g/dL (12.2-16.2) Hematocrit 38.8 % (36.0-46.0) Mean Corpuscular Volume 80.6 fL (80.0-100.0) Mean Corpuscular Hemoglobin 27.1 pg (28.0-32.0) Mean Corpuscular Hemoglobin Concent 33.6 g/dL (32.0-36.0) Red Cell Distribution Width 14.4 % (11.8-14.3) Platelet Count 201 10^3/uL (140-450) Mean Platelet Volume 11.0 fL (6.9-10.8) Neutrophils (%) (Auto) 87.2 % (37.0-80.0) Lymphocytes (%) (Auto) 8.1 % (10.0-50.0) Monocytes (%) (Auto) 4.6 % (0.0-12.0) Eosinophils (%) (Auto) 0.0 % (0.0-7.0) Basophils (%) (Auto) 0.1 % (0.0-2.0) Neutrophils # (Auto) 8.6 10 ^3/uL (1.6-8.6) Lymphocytes # (Auto) 0.8 10 ^3/uL (0.4-5.4) Monocytes # (Auto) 0.5 10 ^3/uL (0-1.3) Eosinophils # (Auto) 0 10 ^3/uL (0-0.8) Basophils # (Auto) 0 10 ^3/uL (0-0.2) Nucleated Red Blood Cells 0.0 % Sodium Level 138 mmol/L (136-145) Potassium Level 4.2 mmol/L (3.5-5.1) Chloride Level 101 mmol/L (98-107) Carbon Dioxide Level 25 mmol/L (20-31) Anion Gap 12 (5-15) Blood Urea Nitrogen 6 mg/dL (9-23) Creatinine 0.65 mg/dL (0.550-1.02) Glomerular Filtration Rate Calc 124 mL/min (>90) BUN/Creatinine Ratio 9.2 (10.0-20.0) Serum Glucose 85 mg/dL (74-106) Calcium Level 10.3 mg/dL (8.7-10.4) Aspartate Amino Transferase (AST) 8 U/L (13-40) Alanine Aminotransferase (ALT) < 9 U/L (7-40) Alkaline Phosphatase 57 U/L (46-116) Total Protein 6.6 g/dL (5.7-8.2) Albumin 4.2 g/dL (3.2-4.8) Urine Test Negative (Negative) Test 12/20/24 06:14 12/19/24 23:14 12/19/24 13:30 12/19/24 12:07 Lipase 24 U/L (12-53) Influenza Type A Antigen Negative (Negative) Influenza Type B Antigen Negative (Negative) Urine Opiates Screen Pos (NEGATIVE) Urine Fentanyl Screen Neg (NEGATIVE) Urine Barbiturates Screen Neg (NEGATIVE) Urine Phencyclidine Screen Neg (NEGATIVE) Urine Amphetamines Screen Neg (NEGATIVE) Urine Benzodiazepines Screen Neg (NEGATIVE) Urine Cocaine Screen Neg (NEGATIVE) Urine Cannabinoids Screen Pos (NEGATIVE) SARS-CoV-2 Antigen (Rapid) Negative (NEGATIVE) Test 12/19/24 11:02 12/19/24 05:14 12/18/24 13:00 Ammonia < 10 umol/L (11-32) Hepatitis A IgM Antibody Negative Hepatitis B Surface Antigen Negative (Negative) Hepatitis B Core IgM Antibody Negative (Negative) Hepatitis C Antibody Negative (Negative) Prothrombin Time 10.9 sec (9.3-11.8) Prothrombin Time INR 1.03 (0.9-1.15) Activated Partial Thromboplast Time 29.6 SEC (24.5-34.5) Hemoglobin A1c 4.7 % A1C (<5.7) Direct Bilirubin 0.6 mg/dL (<0.3) Lactate Dehydrogenase 163 U/L (120-246) Thyroid Stimulating Hormone (TSH) 0.94 uIU/mL (0.55-4.78) Beta HCG, Quantitative 0.1 mIU/mL (1.5-4.2) Plasma/Serum Blood Alcohol < 3.0 mg/dL (<10) Urine Color Yellow (Yellow) Urine Clarity Clear (Clear) Urine pH 5.5 (5.0-9.0) Urine Specific [place] 1.028 (1.001-1.035) Urine Protein Negative (Negative) Urine Ketones 1+ (Negative) Urine Blood Negative /uL (Negative) Urine Nitrite Negative (Negative) Urine Bilirubin Negative (Negative) Urine Urobilinogen Normal mg/dL (Negative) Urine Leukocyte Esterase 2+ /uL (Negative) Urine RBC 2 /hpf (0 - 4) Urine Microscopic WBC 7 /HPF (0-5) Urine Squamous Epithelial Cells Few /hpf (<5) Urine Bacteria Few /hpf (None Seen) Urine Mucus Few (None Seen) Urine Glucose Normal mg/dL (Normal) Other Laboratory Tests 12/22/24 04:57 Brief Hx & Hospital Course: Cheyanne Dexter is a 24-year-old female with a PMH of depression, anxiety presented to the ED with the chief complaints of abdominal pain. Patient reported She has been having abdominal pain intermittent for last 3 days but yesterday after eating food having severe abdominal pain which is mostly in right upper quadrant, radiating to her back associated with nausea and vomiting which brought her to visit ED. patient reported no symptoms 5 years, underwent EGD but did not remember exactly what it says but she remembers she was on Protonix. On my assessment patient denies sick contacts, recent travel, outside food, sick contacts, diarrhea, constipation, hematemesis, chest pain, shortness of breath and other associated symptoms. Hospital course: Initial CT abdominal pelvis showed No acute abdominal or pelvic findings. No hydronephrosis or nephrolithiasis. Gallbladder ultrasound showed no evidence of cholecystitis gallstones or biliary dilatation. HIDA scans Unremarkable hepatobiliary study without evidence of acute cholecystitis. consulted surgery, advised MRCP due to elevated bilirubin. MRCP revealed Small volume gallbladder sludge is present. No findings of cholecystitis or choledocholithiasis. Due to the patient's persistent pain in the right upper quadrant, tenderness in the right upper quadrant, nausea and vomiting and the sludge in the gallbladder, Patient underwent laparoscopic cholecystectomy on 12/20/24 and postoperative period was uneventful. After the procedure slowly patient was able to tolerate oral diet, had bowel movement, abdomen is soft appropriately tender, wound clean and well approximated and surgery cleared the patient for discharge and advised to follow up with outpatient surgery in 2 weeks. Discharge plan was discussed with the patient and all questions were answered. Also the patient was treated for acute UTI; received a course of IV antibiotics so no oral antibiotics upon discharge. Patient is being discharged to home and advised to follow up with continuity clinic on Wednesday12/25/24 at 10:00 a.m. Physical examination on the day of discharge: General Appearance: Alert, Oriented X3, Cooperative, No acute distress HEENT: Atraumatic, PERRLA, EOMI, Mucous membrane moist/pink Respiratory: Clear to auscultation, Normal air movement Cardiovascular: Regular rate, Normal S1, Normal S2, No murmurs, no chest wall tenderness Abdominal: Abdominal binder; Normal bowel sounds, Soft, No tenderness, No hepatosplenomegaly, No masses Extremities: No clubbing, No cyanosis, No edema, Normal pulses, No tenderness/swelling Skin: No rashes, No breakdown, No significant lesion Neuro: Normal gait, Normal speech, Strength at 5/5 X4 ext, Normal tone, Sensation intact, Cranial nerves 3-12 NL, Reflexes 2+ Psych/Mental Status: Mental status NL, Mood NL Case discussed with Dr. Nguyễn Consults/Reason for consult Surgery was consulted Operations or Procedures Ultrasound gallbladder INDICATION: ruq pain Technique: 2-D real-time ultrasound was performed with axial and sagittal images submitted for evaluation. FINDINGS: Liver and spleen are normal in size without focal mass. Liver measures 15 cm No gallstones or gallbladder wall thickening. No gallbladder wall thickening. No biliary dilatation. Common bile duct measures 3.1 cm Kidneys are normal in size without mass stone or hydronephrosis. Right kidney measures 9 cm in IMPRESSION: 1. No evidence of cholecystitis gallstones or biliary dilatation. Exam: CT CT AB PEL WO CON-NO ORAL OR IV History: Possible nephrolithiasis Findings: Evaluation of solid organs is limited due to lack of intravenous contrast use. Lung Bases: No acute or significant lung base finding. Normal heart size. No pleural or pericardial effusion. Liver: The liver is normal in size. No focal lesions. Gallbladder and biliary Tree: Unremarkable Spleen: Unremarkable Pancreas: The pancreas is grossly normal in appearance. Adrenal Glands: Unremarkable Kidneys: Kidneys are grossly normal without calculi or hydronephrosis. Bladder: Grossly unremarkable for degree of distention. Bowel: The stomach is grossly normal in appearance. Small bowel and colon are normal in caliber and distribution. The appendix is not visualized; however, no secondary findings of acute appendicitis identified. Ascites: Absent Lymphadenopathy: No mesenteric, retroperitoneal or periportal lymphadenopathy. Abdominal wall and Mesentery: Unremarkable. Vasculature: The visualized abdominal aorta is normal in size and caliber. Evaluation of abdominal and pelvic vessels is limited due to lack of intravenous contrast. Pelvic Organs: Unremarkable Musculoskeletal: No aggressive focal bony lesions, acute fractures or dislocation. IMPRESSION: 1. No acute abdominal or pelvic findings. No hydronephrosis or nephrolithiasis. MRI Abdomen, without IV Contrast MRCP including 3D SPACE, Radial 2D slabs and SPACE 3D MIP images Findings: Liver: The liver is normal in size without focal lesions. Normal liver contour. Spleen: Unremarkable. Pancreas: The pancreas is normal in appearance without focal lesions. Gallbladder and ducts: Small volume gallbladder sludge is present. The cystic duct, right and left hepatic ducts, common hepatic duct, and common bile ducts are unremarkable. The pancreatic duct is within normal limits. Adrenal glands: Unremarkable. Kidneys: Normal enhancement without suspicious lesions or hydronephrosis. Visualized bowel: Grossly unremarkable. Vasculature: Unremarkable. Lymphadenopathy: No evidence for lymphadenopathy. Ascites: Absent. Musculoskeletal: Bone marrow signal is normal. IMPRESSION: Small volume gallbladder sludge is present. Procedure: NM NM HIDA SCAN Findings: The liver appears grossly normal in size. There is no abnormal persistence of the cardiac or blood pool activity. There is prompt visualization of the gallbladder and excretion of activity into the small bowel. Impression: Unremarkable hepatobiliary study without evidence of acute cholecystitis. Condition at Discharge: Stable Final Diagnosis/Problems List # Intractable abdominal pain due to symptomatic cholelithiasis and acute cholecystitis as per surgical finding # Symptomatic cholelithiasis, s/p laparoscopic cholecystectomy # Hyperbilirubinemia resolved # Gastritis # Acute complicated UTI # Hypokalemia Discharge Disposition: Home Discharge Instruct/Medications Diet: Regular Activity: No Restrictions, As Tolerated Follow Up/Referral: Follow up with continuity clinic in Wednesday (12/25/24) at 10:00AM; follow up with General Surgery in two weeks Discharge Statement: "Patient was advised to return to the ER or call 911 if any headaches, dizziness, shortness of breath, chest pain, abdominal pain, bleeding, fevers, or worsening of medical condition. Patient was counseled about treatment plan, medications, possible side effects, patientverbalized understanding. All questions were answered to the best of my ability. This discharge took greater then 30 minutes in planning, reviewing documentation, counseling the patient, and discussing with other team members." ASSESSMENT ASSESSMENT Assessment # Intractable abdominal pain due to symptomatic cholelithiasis and acute cholecystitis as per surgical finding # Symptomatic cholelithiasis, s/p laparoscopic cholecystectomy # Hyperbilirubinemia resolved # Gastritis # Acute complicated UTI # Hypokalemia Addendum Addendum Addendum I was physically present for the osorio portions of the service provided to patient by THE RESIDENT. I have reviewed the documentation, discussed the case with resident and agree with the resident's documentation except as noted. Also the patient's clinical case was discussed with the patient's nurse. This medical document was created using an electronic medical record system with computerized dictation system. Although this document has been carefully reviewed, there might still be some phonetic and typographical errors. These areas are purely typographical due to imperfections of the software programs, and do not reflect any compromise in the patient's medical care. Late signature. Date of Service: Dec 23, 2024 Billing Provider: OUMAR NGUYỄN MD Common Visit Codes: 87491-YVU/OBS DISCH DAY >30min YOSVANY HODGSON RESIDENT Dec 23, 2024 14:52 OUMAR NGUYỄN MD Dec 23, 2024 19:06
== END 2024-12-23 15:37 | disposition home or self-care (01) | DRG 263 ==
LOC: ER 10:42 → OVERFLOW 17:59 → WEST WING 12-19 20:03
PROVIDERS: ADMIT Internal Medicine; ATTEND Internal Medicine
PROC: 0DB68ZX Excision of Stomach, Via Natural or Artificial Opening Endoscopic, Diagnostic (ICD-10-PCS; 2024-12-20)
PROC: 0DB98ZX Excision of Duodenum, Via Natural or Artificial Opening Endoscopic, Diagnostic (ICD-10-PCS; principal; 2024-12-20 08:40)
PROC: 0FT44ZZ Resection of Gallbladder, Percutaneous Endoscopic Approach (ICD-10-PCS; 2024-12-21)
DX: K80.00 Calculus of gallbladder with acute cholecystitis without obstruction (principal); E80.6 Other disorders of bilirubin metabolism; K29.70 Gastritis, unspecified, without bleeding; E87.6 Hypokalemia; F32.A Depression, unspecified; N30.00 Acute cystitis without hematuria; Z83.3 Family history of diabetes mellitus; Z88.8 Allergy status to other drugs, medicaments and biological substances; Z98.891 History of uterine scar from previous surgery
CPT/HCPCS: 36415; 43239; 71045; 74176; 74181; 76705; 78226; 80048; 80053; 80074; 80307; 80320; 81001; 81025; 82140; 82247; 82248; 83036; 83615; 83690; 84443; 84702; 85025; 85610; 85730; 86850; 86900; 86901; 87426; 87804; 93005; 96374; 96375; G0378; J0330; J1100; J2250; J2405; J2704; J3490

== ENCOUNTER 2024-12-28 08:31 | Emergency (ER) | payer MEDICAID ==
[~2024-12-28] VITALS: Ht 167.6 cm; Wt 81.7 kg
[~2024-12-28 08:31] MED LIST: ARIP20TA4 PO; BUSP15TA60 PO; ESCI1TAB36 PO
[2024-12-28 09:06] VITALS: PULSE 58; RESP 16; O2SAT 98
--- NOTE | 2024-12-28 09:20 | ED.PDOC ---
GI ASSESSMENT HPI Comments 24 y/o F, presents to the ED for CC of abdominal pain. Patient states, she has been experiencing epigastric abdominal pain with associated nausea, vomiting, and diarrhea since last night (12/27/24). Patient relays, that she recently underwent a cholecystectomy x5days ago; believes symptoms to be in association. Patient denies hematemesis, fever, chills, body-aches, or fatigue. No other symptoms or modifying factors present at this time. Chief Complaint: Abdominal Pain Time Seen by MD: 09:00 Primary Care Provider: ? Allergies: Coded Allergies: Metoclopramide (Verified Allergy, Unknown, 12/12/24) Home Meds Reported Medications Escitalopram Oxalate (ESCITALOPRAM OXALATE) 10 Mg Tab, 1 TAB PO DAILY, #30 TAB 3 Refills 12/22/24 Buspirone Hcl (Buspirone Hcl) 15 Mg Tab, 15 MG PO HS for 30 Days 12/22/24 Aripiprazole (Abilify) 20 Mg Tab, 20 MG PO DAILY, TAB 12/22/24 Mode of Arrival: Ambulatory Timing: Hours, Days Duration: Since onset Prehospital treatment: None Quality: None Vomitus: Watery Stool: Watery Severity: Moderate Recent: None Recent Hx of: None Pain Location: Epigastric Modifying Factors: Nothing Associated sign and symptoms: Nausea, Vomiting, Diarrhea Past Medical History PAST MEDICAL HISTORY: Anxiety, Depression 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, 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 History Family History Family History: Family hx of DM Social History Smoker: Non-Smoker Alcohol: Occasionally Drugs: Marijuana Lives In: Home Constitutional: denies: chills, diaphoresis, fatigue, fever, malaise, sweats, weakness, others EENTM: denies: blurred vision, double vision, ear bleeding, ear discharge, ear drainage, ear pain, ear ringing, eye pain, eye redness, hearing loss, mouth pain, mouth swelling, nasal discharge, nose bleeding, nose congestion, nose pain, photophobia, tearing, throat pain, throat swelling, voice changes, others Respiratory: denies: cough, hemoptysis, orthopnea, SOB at rest, shortness of breath, SOB with excertion, stridor, wheezing, others Gastrointestinal: reports: abdominal pain, diarrhea, nausea, vomiting; denies: abdomen distended, blood streaked bowels, constipated, dysphagia, difficulty swallowing, hematemesis, melena, poor appetite, poor fluid intake, rectal bleeding, rectal pain, others Genitourinary: denies: abnormal vagina bleeding, burning, dyspareunia, dysuria, flank pain, frequency, hematuria, incontinence, pain, , vagina discharge, urgency, others Neurological: denies: dizziness, fainting, headache, left sided numbness, left sided weakness, numbness, paresthesia, pre-existing deficit, right sided numbness, right sided weakness, seizure, speech problems, tingling, tremors, weakness, others Musculoskeletal: denies: back pain, gout, joint pain, joint swelling, muscle pain, muscle stiffness, neck pain, others Integumetry: denies: bruises, change in color, change in hair/nails, dryness, laceration, lesions, lumps, rash, wounds, others Allergic/Immunocompromised: denies: Difficulty Healing, Frequent Infections, Hives, Itching, others Hematologic/Lymphatic: denies: anemia, blood clots, easy bleeding, easy br uising, swollen glands, others Endocrine: denies: excessive hunger, excessive sweating, excessive thirst, excessive urination, flushing, intolerance to cold, intolerance to heat, unexplained weight gain, unexplained weight loss, others Psychiatric: denies: anxiety, bipolar disorder, depression, hopeless, panic disorder, schizophrenia, sleepless, suicidal, others All Other Systems: Reviewed and Negative Physical Exam General Appearance: No Apparent Distress, Normal HEENT: Normal ENT Inspection, Pharynx Normal Neck: Full Range of Motion, Non-Tender, Normal, Normal Inspection Respiratory: Chest Non-Tender, Lungs Clear, No Accessory Muscle Use, No Respiratory Distress, Normal Breath Sounds Cardiovascular: No Edema, No Murmur, No Gallop, Normal Peripheral Pulses, Regular Rate/Rhythm Breast Exam: Deferred Gastrointestinal: No Organomegaly, Non Tender, No Pulsatile Mass, Normal Bowel Sounds, Soft Genitalia: Deferred Pelvic: Deferred Rectal: Deferred Extremities: NOT DONE Musculoskeletal : Apperance: Normal Neurologic: Alert, No Motor Deficits, Normal Affect, Normal Mood, No Sensory Deficits Cerebellar Function: Normal Reflexes: Normal Skin: Dry, Normal Color, Warm Lymphatic: No Adenopathy Was a procedure done? Was a procedure done?: No GI differential Dx Differential Diagnosis: Gastritis/PUD, Gastroenteritis, Electrolyte Imbalance, Food Poisoning, Bacterial, Viral X-Ray, Labs, Meds, VS Vital Signs Date Time Temp Pulse Resp B/P (MAP) Pulse Ox O2 Delivery O2 Flow Rate FiO2 12/28/24 09:20 98.1 58 16 109/61 (77) 98 98.1 12/28/24 09:06 58 16 98 Room Air* 0 21 12/28/24 08:39 98.1 62 16 142/86 (104) 100 98.1 Lab Test 12/28/24 09:38 12/28/24 08:46 Range/Units White Blood Count 8.3 4.4-10.8 10^3/uL Red Blood Count 5.07 4.0-5.20 10^6/uL Hemoglobin 13.6 12.2-16.2 g/dL Hematocrit 41.0 36.0-46.0 % Mean Corpuscular Volume 80.9 80.0-100.0 fL Mean Corpuscular Hemoglobin 26.9 L 28.0-32.0 pg Mean Corpuscular Hemoglobin Concent 33.2 32.0-36.0 g/dL Red Cell Distribution Width 15.1 H 11.8-14.3 % Platelet Count 201 140-450 10^3/uL Mean Platelet Volume 10.6 6.9-10.8 fL Neutrophils (%) (Auto) 75.1 37.0-80.0 % Lymphocytes (%) (Auto) 17.6 10.0-50.0 % Monocytes (%) (Auto) 5.4 0.0-12.0 % Eosinophils (%) (Auto) 1.6 0.0-7.0 % Basophils (%) (Auto) 0.3 0.0-2.0 % Neutrophils # (Auto) 6.2 1.6-8.6 10 ^3/uL Lymphocytes # (Auto) 1.5 0.4-5.4 10 ^3/uL Monocytes # (Auto) 0.4 0-1.3 10 ^3/uL Eosinophils # (Auto) 0.1 0-0.8 10 ^3/uL Basophils # (Auto) 0 0-0.2 10 ^3/uL Nucleated Red Blood Cells 0.1 % Sodium Level 139 136-145 mmol/L Potassium Level 4.4 3.5-5.1 mmol/L Chloride Level 107 98-107 mmol/L Carbon Dioxide Level 28 20-31 mmol/L Anion Gap 4 L 5-15 Blood Urea Nitrogen 13 9-23 mg/dL Creatinine 0.70 0.550-1.02 mg/dL Glomerular Filtration Rate Calc 122 >90 mL/min BUN/Creatinine Ratio 18.6 10.0-20.0 Serum Glucose 100 74-106 mg/dL Calcium Level 9.6 8.7-10.4 mg/dL Total Bilirubin 0.8 0.2-1.0 mg/dL Aspartate Amino Transferase (AST) 12 L 13-40 U/L Alanine Aminotransferase (ALT) 85 H 7-40 U/L Alkaline Phosphatase 82 46-116 U/L Total Protein 7.1 5.7-8.2 g/dL Albumin 4.6 3.2-4.8 g/dL Beta HCG, Quantitative 0.5 L 1.5-4.2 mIU/mL Urine Color Light-yellow Yellow Urine Clarity Clear Clear Urine pH 7.5 5.0-9.0 Urine Specific [place] 1.025 1.001-1.035 Urine Protein Negative Negative Urine Ketones Negative Negative Urine Blood Negative Negative /uL Urine Nitrite Negative Negative Urine Bilirubin Negative Negative Urine Urobilinogen Normal Negative mg/dL Urine Leukocyte Esterase Negative Negative /uL Urine RBC 1 0 - 4 /hpf Urine Microscopic WBC 1 0-5 /HPF Urine Squamous Epithelial Cells Few <5 /hpf Urine Bacteria None seen None Seen /hpf Urine Glucose Normal Normal mg/dL Current Medications Medications (Trade) Dose Ordered Sig/Mili Route Start Time Stop Time Status Last Admin Ondansetron HCl (Zofran) 4 mg ONCE ONCE IV 12/28/24 09:45 12/28/24 09:46 DC 12/28/24 09:53 Sodium Chloride 1,000 ml @ 1,000 mls/hr Q1H ONCE IVB 12/28/24 09:45 12/28/24 10:44 DC 12/28/24 09:[address] [address] Ph: [phone] DIAGNOSTIC IMAGING Diagnostic Imaging Report : [id number] Signed PATIENT: TYESHA PATEL LEANNACCT: [id number] UNIT: [id number] : 2000 LOC: ER ROOM / BED: / AGE / SEX: 24 / F ADM STATUS: REG ER SERVICE [id number] ORDERING PHYSICIAN: DONIS PIERCE MD PROCEDURE(s): ABPL - CT AB PEL WO CON-NO ORAL OR IV REASON: abd pain s/p liyah ORDER NUMBER(s): [id number], ACCESSION NUMBER(s): [id number] CT ABDOMEN AND PELVIS WITHOUT CONTRAST CLINICAL HISTORY: abd pain s/p liyah TECHNIQUE: Multiple contiguous axial images of the abdomen and pelvis without intravenous contrast. The images were reformatted degenerate coronal and sagittal reconstructions. All CT scans at this medical facility are performed using dose modulation techniques as appropriate to a performed exam including the following:Automated exposure control was utilized; adjustment of the MA and/or KV according to patient size; and use of iterative reconstruction technique. Radiation Dose Information: CT Dose: CTDI volume is 13 mGy. Dose-length product is 729 mGy*cm Comparison: CT CT AB PEL WO CON-NO ORAL OR IV on DOS: 12/19/24 FINDINGS: Evaluation of the abdomen and pelvis is limited without intravenous contrast. Gallbladder is surgically absent. The liver, pancreas, kidneys, adrenal glands, and spleen appear within normal limits. There is no gross evidence of abdominal lymphadenopathy. There is no free fluid or free air. The stomach grossly appears unremarkable. The small and large bowel loops demonstrate normal caliber and distribution. The appendix is not seen in the right lower quadrant abdomen. There are no secondary signs of acute appendicitis. The abdominal aorta and IVC appear within normal limits. The bladder appears unremarkable for the degree of distention. Uterus and ovarie s grossly appear within normal limits.. There is no gross evidence of a pelvic mass. There is no free fluid collection. Lung bases are clear. There is no acute osseous abnormality. IMPRESSION: 1. There is no acute process in the abdomen and pelvis. 2. 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. HS:Y ATED BY: NORMAN BALL MD DICTATED DATE/TIME: 12/28/241223 SIGNED BY: NORMAN BALL MD SIGNED DATE/TIME: 12/28/241223 CC: X-Ray, Labs, Meds, VS Comment A 24-year-old female presents secondary to abdominal pain nausea vomiting diarrhea. While here, she was given Zofran and IV fluids. Upon reassessment at approximately 1:00 p.m., she states she feels substantially better. She no longer has abdominal discomfort, nausea, diarrhea or vomiting. She will be discharged home. She was asked to considerable and diet and advanced slowly. Time of 1ST Reevaluation: 09:30 Reevaluation 1ST: Unchanged Patient Education/Counseling: Diagnosis, Treatment Family Education/Counseling: No Family Present Departure 1 Departure Time of Disposition: 13:20 Impression: Primary Impression: Nausea & vomiting Additional Impression: Diarrhea Disposition: HOME / SELF CARE / HOMELESS Condition: Good Critical Care Note Critical Care Time?: No Stability Stability form required: No Heart Score Heart Score: Heart Score Response (Comments) Value History N/A 0 EKG N/A 0 Age N/A 0 Risk Factors N/A 0 Troponin N/A 0 Total 0 I personally scribed for DONIS PIERCE MD ([email or web address]) on 12/28/24 at 09:20. Electronically submitted by Shruthi King [email or web address]). I personally scribed for DONIS PIERCE MD ([email or web address]) on 12/28/24 at 12:38. Electronically submitted by Shruthi King [email or web address]). I personally scribed for DONIS PIERCE MD ([email or web address]) on 12/28/24 at 12:39. Electronically submitted by Shruthi King [email or web address]). DONIS PIERCE MD Dec 28, 2024 09:20
[2024-12-28] MEDS: SODIUM CHLORIDE 0.9% 1,000 ML IVB ONE (09:53)
[2024-12-28] MEDS: ONDANSETRON HCL 4 MG/2 ML VIAL IV ONE (09:53)
[2024-12-28 10:02] LABS: Basophils # (auto) 0 10 ^3/uL (0-0.2); Basophils % (auto) 0.3 % (0.0-2.0); Eosinophils # (auto) 0.1 10 ^3/uL (0-0.8); Eosinophils % (auto) 1.6 % (0.0-7.0); Hemoglobin 13.6 g/dL (12.2-16.2); Lymphocytes # (auto) 1.5 10 ^3/uL (0.4-5.4); Lymphocytes % (auto) 17.6 % (10.0-50.0); Mean Corpuscular Hemoglobin 26.9 pg (28.0-32.0); Mean Corpuscular Hgb Conc. 33.2 g/dL (32.0-36.0); Mean Corpuscular Volume 80.9 fL (80.0-100.0); Monocytes # (auto) 0.4 10 ^3/uL (0-1.3); Monocytes % (auto) 5.4 % (0.0-12.0); Neutrophils # (auto) 6.2 10 ^3/uL (1.6-8.6); Neutrophils % (auto) 75.1 % (37.0-80.0); Nucleated Red Blood Cells % 0.1 %; Platelet Count (auto) 201 10^3/uL (140-450); Red Blood Cells 5.07 10^6/uL (4.0-5.20); Red Cell Distribution Width 15.1 % (11.8-14.3); White Blood Cell 8.3 10^3/uL (4.4-10.8)
[2024-12-28 10:32] LABS: Albumin 4.6 g/dL (3.2-4.8); Alkaline Phosphatase 82 U/L (46-116); Anion Gap 4 (5-15); BUN/Creatinine Ratio 18.6 (10.0-20.0); Blood Urea Nitrogen 13 mg/dL (9-23); Calcium 9.6 mg/dL (8.7-10.4); Carbon Dioxide 28 mmol/L (20-31); Chloride 107 mmol/L (98-107); Glucose 100 mg/dL (74-106); Potassium 4.4 mmol/L (3.5-5.1); Sodium 139 mmol/L (136-145); Total Protein 7.1 g/dL (5.7-8.2)
[2024-12-28 10:33] LABS: Bilirubin, Total 0.8 mg/dL (0.2-1.0)
[2024-12-28 10:47] LABS: Alanine Aminotransferase 85 U/L (7-40); Aspartate Aminotransferase 12 U/L (13-40)
[2024-12-28 12:01] LABS: Urine Bacteria None Seen /hpf (None Seen)
[2024-12-28 12:12] LABS: Urine Blood Negative /uL (Negative); Urine Clarity Clear (Clear); Urine Color Light-Yellow (Yellow); Urine Protein, UAD Negative (Negative); Urine Specific Gravity 1.025 (1.001-1.035); Urine Squamous Epithelial Cell FEW /hpf (<5); Urine Urobilinogen Normal (Negative); Urine WBC 1 /HPF (0-5); Urine pH 7.5 (5.0-9.0)
--- NOTE | 2024-12-28 12:26 | DVH ---
CT ABDOMEN AND PELVIS WITHOUT CONTRAST CLINICAL HISTORY: abd pain s/p liyah TECHNIQUE: Multiple contiguous axial images of the abdomen and pelvis without intravenous contrast. T he images were reformatted degenerate coronal and sagittal reconstructions. All CT scans at this medical facility are performed using dose modulation techniques as appropriate t o a performed exam including the following:Automated exposure control was utilized; adjustment of the MA and/or KV according to patient size; and use of iterative reconstruction technique. Radiation Dose Information: CT Dose: CTDI volume is 13 mGy. Dose-length product is 729 mGy*cm Comparison: CT CT AB PEL WO CON-NO ORAL OR IV on DOS: 12/19/24 FINDINGS: Evaluation of the abdomen and pelvis is limited without intravenous contrast. Gallbladder is surgically absent. The liver, pancreas, kidneys, adrenal glands, and spleen appear wi thin normal limits. There is no gross evidence of abdominal lymphadenopathy. There is no free fluid or free air. The stomach grossly appears unremarkable. The small and large bowel loops demonstrate normal caliber and distribution. The appendix is not seen in the right lower quadrant abdomen. There are no seconda ry signs of acute appendicitis. The abdominal aorta and IVC appear within normal limits. The bladder appears unremarkable for the degree of distention. Uterus and ovaries grossly appear with in normal limits.. There is no gross evidence of a pelvic mass. There is no free fluid collection. Lung bases are clear. There is no acute osseous abnormality. IMPRESSION: 1. There is no acute process in the abdomen and pelvis. 2. 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. HS:Y
[2024-12-28] MEDS ORDERED: ZOFR4T PO (13:22)
[2024-12-28 13:23] VITALS: BP 139/83; PULSE 58; RESP 16; TEMP 98.2; O2SAT 99
== END 2024-12-28 13:36 | disposition home or self-care (01) ==
LOC: ER 08:31
DX: R11.2 Nausea with vomiting, unspecified (principal); R10.2 Pelvic and perineal pain; R19.7 Diarrhea, unspecified; R10.13 Epigastric pain; F41.9 Anxiety disorder, unspecified; F32.A Depression, unspecified; F12.90 Cannabis use, unspecified, uncomplicated; Z90.49 Acquired absence of other specified parts of digestive tract; Z98.890 Other specified postprocedural states; Z79.899 Other long term (current) drug therapy
CPT/HCPCS: 36415; 74176; 80053; 81001; 84702; 85025; 96361; 96374; 99285; J2405; J7030

== ENCOUNTER 2025-03-06 18:08 | Emergency (ER) | payer MEDICAID ==
[~2025-03-06] VITALS: Ht 167.6 cm; Wt 77.0 kg
[~2025-03-06 18:08] MED LIST changes: +ZOFR4T PO
--- NOTE | 2025-03-06 18:45 | ED.PDOC ---
History of Present Illness HPI Comments 24 y/o F presents with LLQ abdominal pain, that wraps around to her left flank, with associated shortness of breath on exertion and diarrhea. Pain, initially, began 1x week ago in her LLQ. Onset of remaining symptoms ensued 2x days ago. 8/10 in severity, with no improvement with pain medication use. Diarrhea commented to be green and covered in mucus, with small tinge of red blood noted. Patient informs on never having anything similar happened to her before and being on her period, currently. Relevant history of cholecystectomy, , and marijuana use. She also reports recent hospital visit to [facility] 1.5x weeks ago, where she was diagnosed with a UTI and just finished an antibiotic course. No recent injuries, travel, sick contact, spoiled food, or illicit substance use endorsed. She denies having any nausea, vomiting, constipation, urinary symptoms, fever, or further associated symptoms. Chief Complaint: Flank Pain Time Seen by MD: 18:15 Primary Care Provider: ? Reviewed Notes: Nurses Notes, Medications, Allergies Allergies: Coded Allergies: Metoclopramide (Verified Allergy, Unknown, 12/12/24) Home Meds Active Scripts Gabapentin (Once-Daily) (Gabapentin) 300 Mg Tab, 300 MG PO Q6HP PRN, #60 TAB Prov:JENARO ALBRIGHT MD 03/06/25 Metronidazole (Flagyl) 500 Mg Tab, 1 TAB PO BID for 7 Days, #14 TAB Prov:JENARO ALBRIGHT MD 03/06/25 Ciprofloxacin Hcl (Cipro) 250 Mg Tab, 250 MG PO BID for 7 Days, #14 TAB Prov:JENARO ALBRIGHT MD 03/06/25 Ondansetron Odt 4MG Tab (ZOFRAN PO) 4 Mg Tb, 4 MG PO QID PRN, #20 TAB ODT TAB-DISSOLVE IN MOUTH, THEN SWALLOW Prov:DONIS PIERCE MD 12/28/24 Reported Medications Escitalopram Oxalate (ESCITALOPRAM OXALATE) 10 Mg Tab, 1 TAB PO DAILY, #30 TAB 3 Refills 12/22/24 Buspirone Hcl (Buspirone Hcl) 15 Mg Tab, 15 MG PO HS for 30 Days 12/22/24 Aripiprazole (Abilify) 20 Mg Tab, 20 MG PO DAILY, TAB 12/22/24 Information Source: Patient Mode of Arrival: Ambulatory Severity: Moderate Timing: Days Duration: Since onset Prehospital treatment: None Past Medical History PAST MEDICAL HISTORY: Anxiety, Depression 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, 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 Family History Family History: Family hx of DM Social History Smoker: Non-Smoker Alcohol: Occasionally Drugs: Marijuana Lives In: Home All Other Systems: Reviewed and Negative (Comprehensive systems review obtained and negative except for what is stated in the HPI.) Physical Exam General Appearance: No Apparent Distress, Normal HEENT: Normal ENT Inspection, Pharynx Normal, TMs Normal Neck: Full Range of Motion, Non-Tender, Normal, Normal Inspection Respiratory: Chest Non-Tender, Lungs Clear, No Accessory Muscle Use, No Respiratory Distress, Normal Breath Sounds Cardiovascular: No Edema, No JVD, No Murmur, No Gallop, Normal Peripheral Pulses, Regular Rate/Rhythm Breast Exam: Deferred Gastrointestinal: LLQ (tenderness), No Organomegaly, No Pulsatile Mass, Normal Bowel Sounds, Soft, Tenderness (LLQ) Genitalia: Deferred Pelvic: Deferred Rectal: Deferred Extremities: No calf tenderness, Normal capillary refill, Normal inspection, Normal range of motion, Non-tender, No pedal edema Musculoskeletal : Apperance: Normal Neurologic: Alert, platform operations director II-XII nml as Tested, No Motor Deficits, Normal Affect, Normal Mood, No Sensory Deficits Cerebellar Function: Normal Reflexes: Normal Skin: Dry, Normal Color, Warm Lymphatic: No Adenopathy Was a procedure done? Was a procedure done?: No Differential Dx Considerations may include: Diverticulitis, PID, ovarian cysts/torsion, nephrolithiasis, pyelonephritis, cystitis, viral syndrome, among others X-Ray, Labs, Meds, VS Vital Signs Date Time Temp Pulse Resp B/P (MAP) Pulse Ox O2 Delivery O2 Flow Rate FiO2 03/06/25 19:50 Room Air* 0 21 03/06/25 19:50 98.8 57 12 106/76 (86) 98 98.8 03/06/25 18:18 98.6 95 18 123/79 (94) 98 98.6 Lab Test 03/06/25 18:37 03/06/25 18:17 Range/Units White Blood Count 6.0 4.4-10.8 10^3/uL Red Blood Count 5.07 4.0-5.20 10^6/uL Hemoglobin 13.8 12.2-16.2 g/dL Hematocrit 40.8 36.0-46.0 % Mean Corpuscular Volume 80.5 80.0-100.0 fL Mean Corpuscular Hemoglobin 27.2 L 28.0-32.0 pg Mean Corpuscular Hemoglobin Concent 33.8 32.0-36.0 g/dL Red Cell Distribution Width 14.7 H 11.8-14.3 % Platelet Count 195 140-450 10^3/uL Mean Platelet Volume 10.5 6.9-10.8 fL Neutrophils (%) (Auto) 66.3 37.0-80.0 % Lymphocytes (%) (Auto) 25.9 10.0-50.0 % Monocytes (%) (Auto) 6.3 0.0-12.0 % Eosinophils (%) (Auto) 1.1 0.0-7.0 % Basophils (%) (Auto) 0.4 0.0-2.0 % Neutrophils # (Auto) 4.0 1.6-8.6 10 ^3/uL Lymphocytes # (Auto) 1.6 0.4-5.4 10 ^3/uL Monocytes # (Auto) 0.4 0-1.3 10 ^3/uL Eosinophils # (Auto) 0.1 0-0.8 10 ^3/uL Basophils # (Auto) 0 0-0.2 10 ^3/uL Nucleated Red Blood Cells 0.0 % Sodium Level 145 136-145 mmol/L Potassium Level 4.0 3.5-5.1 mmol/L Chloride Level 108 H 98-107 mmol/L Carbon Dioxide Level 30 20-31 mmol/L Anion Gap 7 5-15 Blood Urea Nitrogen 10 9-23 mg/dL Creatinine 0.84 0.550-1.02 mg/dL Glomerular Filtration Rate Calc 98 >90 mL/min BUN/Creatinine Ratio 11.9 10.0-20.0 Serum Glucose 94 74-106 mg/dL Calcium Level 10.0 8.7-10.4 mg/dL Total Bilirubin 1.8 H 0.2-1.0 mg/dL Aspartate Amino Transferase (AST) 10 L 13-40 U/L Alanine Aminotransferase (ALT) 15 7-40 U/L Alkaline Phosphatase 72 46-116 U/L Total Protein 7.4 5.7-8.2 g/dL Albumin 4.9 H 3.2-4.8 g/dL Lipase 28 12-53 U/L Urine Color Yellow Yellow Urine Clarity Turbid H Clear Urine pH 6.5 5.0-9.0 Urine Specific [place] 1.032 1.001-1.035 Urine Protein Trace H Negative Urine Ketones Trace Negative Urine Blood Negative Negative /uL Urine Nitrite Negative Negative Urine Bilirubin Negative Negative Urine Urobilinogen 3 H Negative mg/dL Urine Leukocyte Esterase Trace Negative /uL Urine RBC 2 0 - 4 /hpf Urine Microscopic WBC 3 0-5 /HPF Urine Squamous Epithelial Cells Mod <5 /hpf Urine Bacteria Few H None Seen /hpf Urine Mucus Few None Seen Urine Glucose Normal Normal mg/dL Urine Test Negative Negative Current Medications Medications (Trade) Dose Ordered Sig/Miil Route Start Time Stop Time Status Last Admin Sodium Chloride 1,000 ml @ 1,000 mls/hr Q1H ONCE IVB 03/06/25 18:30 03/06/25 19:29 DC 03/06/25 19:55 Ketorolac Tromethamine (Toradol Injection) 15 mg ONCE ONCE IV 03/06/25 18:30 03/06/25 18:32 DC 03/06/25 19:59 Time of 1ST Reevaluation: 18:45 Reevaluation 1ST: Unchanged Patient Education/Counseling: Diagnosis, Treatment, Need For Follow Up Family Education/Counseling: No Family Present Departure 1 Departure Time of Disposition: 20:40 Impression: Primary Impression: LLQ abdominal pain Additional Impression: Colitis Disposition: HOME / SELF CARE / HOMELESS Condition: Stable e-Prescriptions Gabapentin (Once-Daily) (Gabapentin) 300 Mg Tab 300 MG PO Q6HP PRN, #60 TAB Prov: JENARO ALBRIGHT MD 03/06/25 Metronidazole (Flagyl) 500 Mg Tab 1 TAB PO BID for 7 Days, #14 TAB Prov: JENARO ALBRIGHT MD 03/06/25 Ciprofloxacin Hcl (Cipro) 250 Mg Tab 250 MG PO BID for 7 Days, #14 TAB Prov: JENARO ALBRIGHT MD 03/06/25 Discharged With: Self Critical Care Note Critical Care Time?: No Stability Stability form required: No Heart Score Heart Score: Heart Score Response (Comments) Value History N/A 0 EKG N/A 0 Age N/A 0 Risk Factors N/A 0 Troponin N/A 0 Total 0 I personally scribed for JENARO ALBRIGHT MD ([email or web address]) on 03/06/25 at 18:45. Electronically submitted by Antonio Gutierrez [email or web address]). JENARO ALBRIGHT MD Mar 06, 2025 18:45
[2025-03-06 18:49] LABS: Basophils # (auto) 0 10 ^3/uL (0-0.2); Basophils % (auto) 0.4 % (0.0-2.0); Eosinophils # (auto) 0.1 10 ^3/uL (0-0.8); Eosinophils % (auto) 1.1 % (0.0-7.0); Hematocrit 40.8 % (36.0-46.0); Hemoglobin 13.8 g/dL (12.2-16.2); Lymphocytes # (auto) 1.6 10 ^3/uL (0.4-5.4); Lymphocytes % (auto) 25.9 % (10.0-50.0); Mean Corpuscular Hemoglobin 27.2 pg (28.0-32.0); Mean Corpuscular Hgb Conc. 33.8 g/dL (32.0-36.0); Mean Corpuscular Volume 80.5 fL (80.0-100.0); Monocytes # (auto) 0.4 10 ^3/uL (0-1.3); Monocytes % (auto) 6.3 % (0.0-12.0); Neutrophils % (auto) 66.3 % (37.0-80.0); Platelet Count (auto) 195 10^3/uL (140-450); Red Blood Cells 5.07 10^6/uL (4.0-5.20); Red Cell Distribution Width 14.7 % (11.8-14.3)
[2025-03-06 18:53] LABS: Urine Bacteria FEW /hpf (None Seen); Urine Blood Negative /uL (Negative); Urine Clarity Turbid (Clear); Urine Color Yellow (Yellow); Urine Mucus FEW (None Seen); Urine Protein, UAD TRACE (Negative); Urine Specific Gravity 1.032 (1.001-1.035); Urine Squamous Epithelial Cell MOD /hpf (<5); Urine Urobilinogen 3 mg/dL (Negative); Urine WBC 3 /HPF (0-5); Urine pH 6.5 (5.0-9.0)
[2025-03-06 19:06] LABS: Alanine Aminotransferase 15 U/L (7-40); Albumin 4.9 g/dL (3.2-4.8); Alkaline Phosphatase 72 U/L (46-116); Anion Gap 7 (5-15); Aspartate Aminotransferase 10 U/L (13-40); BUN/Creatinine Ratio 11.9 (10.0-20.0); Blood Urea Nitrogen 10 mg/dL (9-23); Carbon Dioxide 30 mmol/L (20-31); Chloride 108 mmol/L (98-107); Glucose 94 mg/dL (74-106); Sodium 145 mmol/L (136-145); Total Protein 7.4 g/dL (5.7-8.2)
[2025-03-06 19:07] LABS: Bilirubin, Total 1.8 mg/dL (0.2-1.0)
[2025-03-06 19:17] LABS: Lipase 28 U/L (12-53)
[2025-03-06] MEDS: IOHEXOL 300 MG/ML 100ML BOTTLE IJ ONE ×2 (19:17→19:21)
[2025-03-06 19:50] VITALS: BP 106/76; PULSE 57; RESP 12; TEMP 98.8; O2SAT 98
[2025-03-06] MEDS: SODIUM CHLORIDE 0.9% 1,000 ML IVB ONE (19:55)
[2025-03-06] MEDS: KETOROLAC TROMETH 30 MG/ML 1ML VIAL IV ONE (19:59)
--- NOTE | 2025-03-06 20:17 | DVH ---
CLINICAL HISTORY: LLQ pain TECHNIQUE: CT of the abdomen and pelvis was performed with intravenous contrast. 100 mL Omnipaque 300 injected This exam was performed according to our departmental dose optimization program. Up-to-date CT equipment and radiation dose reduction techniques are utilized as appropriate. CTDIVol: 13.6 mGy DLP: 723.7 mGy-cm WID: COMPARISON: None FINDINGS: Lower Thorax: Unremarkable. Liver and Biliary system: Hepatomegaly with the right lobe of the liver measuring 18 cm craniocaudal. There is focal steatosis in the periphery of segment 4 and segment 3 adjacent to the fissure for the falciform ligament. Major portal veins are patent. Prior cholecystectomy without biliary ductal dil atation. Spleen: Unremarkable. Adrenal Glands and Kidneys: Unremarkable. Pancreas and Retroperitoneum: Unremarkable. Aorta and Major Vessels: Aortoiliac vessels are patent and normal caliber Bowel, Mesentery and Peritoneal space: Normal caliber small and large bowel. Circumferential wall thi ckening in the large bowel. Mild ascites predominantly in the pelvis. There is no free air or fluid c ollection. Pelvis: Unremarkable Abdominal wall and Osseous Structures: Small fat containing umbilical hernia. Minor lower thoracic an d lumbar spondylosis. No destructive osseous lesion. Mild osteoarthritis of the bilateral hips. IMPRESSION: 1. Mild wall thickening throughout the large bowel which could be infectious or inflammatory colitis. 2. Mild hepatomegaly.
[2025-03-06] MEDS ORDERED: CIPR-273 PO (20:33)
[2025-03-06] MEDS ORDERED: METR-344 PO (20:33)
[2025-03-06] MEDS ORDERED: GABA300T4 PO (20:34)
[2025-03-07] MEDS ORDERED: AMOX875T4 PO (20:16)
== END 2025-03-06 20:56 | disposition home or self-care (01) ==
LOC: ER 18:08
DX: K52.9 Noninfective gastroenteritis and colitis, unspecified (principal); R10.32 Left lower quadrant pain; F41.9 Anxiety disorder, unspecified; F32.A Depression, unspecified; Z79.899 Other long term (current) drug therapy; Z90.49 Acquired absence of other specified parts of digestive tract
CPT/HCPCS: 36415; 74177; 80053; 81001; 81025; 83690; 85025; 96361; 96374; 99285; J1885; J7030; Q9967

== ENCOUNTER 2025-03-07 19:25 | Emergency (ER) | payer MEDICAID ==
[~2025-03-07] VITALS: Ht 167.6 cm; Wt 78.4 kg
[~2025-03-07 19:25] MED LIST changes: +CIPR-273 PO; +GABA300T4 PO; +METR-344 PO
[2025-03-07] MEDS ORDERED: AMOX875T4 PO (20:16)
--- NOTE | 2025-03-07 20:16 | ED.PDOC ---
Eye-HPI HPI Comments 24 year old female presents to ER with complaints of left sided facial swelling x 1 day. Patient states she left her dentist office today at 4 p.m. after having a "cap" put on her left upper 2nd molar tooth and having a right lower tooth extracted and reports 20 minutes after she left her dentist office she started experiencing left sided facial swelling. Denies any current pain and reports she was prescribed amoxicillin antibiotics today by her dentist. Patient presents to ER ambulatory on arrival, alert and oriented x4, with steady gait, in no distress with mild left-sided facial swelling appreciated and vitals stable. Denies fever, headache, shortness of breath, body aches, chills or any further symptoms/complaints Chief Complaint: Allergic Reaction Time Seen by MD: 19:35 Primary Care Provider: UNKNOWN Reviewed Notes: Nurses Notes, Medications, Allergies Allergies: Coded Allergies: Metoclopramide (Verified Allergy, Unknown, 12/12/24) Home Meds Active Scripts Amoxicillin & Pot Clavulanate (Amoxicillin/Potassium Cla) 875 Mg Tab, 1 TAB PO BID for 7 Days, #14 TAB 0 Refills Prov:KATIE VILLA 03/07/25 Gabapentin (Once-Daily) (Gabapentin) 300 Mg Tab, 300 MG PO Q6HP PRN, #60 TAB Prov:JENARO ALBRIGHT MD 03/06/25 Metronidazole (Flagyl) 500 Mg Tab, 1 TAB PO BID for 7 Days, #14 TAB Prov:JENARO ALBRIGHT MD 03/06/25 Ciprofloxacin Hcl (Cipro) 250 Mg Tab, 250 MG PO BID for 7 Days, #14 TAB Prov:JENARO ALBRIGHT MD 03/06/25 Ondansetron Odt 4MG Tab (ZOFRAN PO) 4 Mg Tb, 4 MG PO QID PRN, #20 TAB ODT TAB-DISSOLVE IN MOUTH, THEN SWALLOW Prov:DONIS PIERCE MD 12/28/24 Reported Medications Escitalopram Oxalate (ESCITALOPRAM OXALATE) 10 Mg Tab, 1 TAB PO DAILY, #30 TAB 3 Refills 12/22/24 Buspirone Hcl (Buspirone Hcl) 15 Mg Tab, 15 MG PO HS for 30 Days 12/22/24 Aripiprazole (Abilify) 20 Mg Tab, 20 MG PO DAILY, TAB 12/22/24 Information Source: Patient Mode of Arrival: Ambulatory Past Medical History PAST MEDICAL HISTORY: Anxiety, Depression 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, 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 Family History Family History: Family hx of DM Social History Smoker: Non-Smoker Alcohol: Occasionally Drugs: Marijuana Lives In: Home Constitutional: denies: chills, diaphoresis, fatigue, fever, malaise, sweats, weakness, others EENTM: reports: others (As stated in HPI) Respiratory: denies: cough, hemoptysis, orthopnea, SOB at rest, shortness of breath, SOB with excertion, stridor, wheezing, others Cardiovascular: denies: chest pain, dizzy spells, diaphoresis, Dyspnea on exertion, edema, irregular heart beat, left arm pain, lightheadedness, palpitations, PND, syncope, others Gastrointestinal: denies: abdomen distended, abdominal pain, blood streaked bowels, constipated, diarrhea, dysphagia, difficulty swallowing, hematemesis, melena, nausea, poor appetite, poor fluid intake, rectal bleeding, rectal pain, vomiting, others Genitourinary: denies: abnormal vagina bleeding, burning, dyspareunia, dysuria, flank pain, frequency, hematuria, incontinence, pain, , vagina discharge, urgency, others Neurological: denies: dizziness, fainting, headache, left sided numbness, left sided weakness, numbness, paresthesia, pre-existing deficit, right sided numbness, right sided weakness, seizure, speech problems, tingling, tremors, weakness, others Musculoskeletal: denies: back pain, gout, joint pain, joint swelling, muscle pain, muscle stiffness, neck pain, others Integumetry: reports: others (As stated in HPI) Allergic/Immunocompromised: denies: Difficulty Healing, Frequent Infections, Hives, Itching, others Hematologic/Lymphatic: denies: anemia, blood clots, easy bleeding, easy bruising, swollen glands, others Endocrine: denies: excessive hunger, excessive sweating, excessive thirst, excessive urination, flushing, intolerance to cold, intolerance to heat, unexplained weight gain, unexplained weight loss, others Psychiatric: denies: anxiety, bipolar disorder, depression, hopeless, panic disorder, schizophrenia, sleepless, suicidal, others Physical Exam General Appearance: No Apparent Distress HEENT: PERRL/EOMI, Pharynx Normal, Other ([place] noted to left upper 2nd molar tooth with mild surrounding gum swelling/erythema. Mild left-sided facial swelling also appreciated, no further skin changes noted) Neck: Full Range of Motion, Non-Tender, Normal Respiratory: Chest Non-Tender, Lungs Clear, No Accessory Muscle Use, No Respiratory Distress, Normal Breath Sounds Cardiovascular: No Murmur, No Gallop, Regular Rate/Rhythm Breast Exam: Deferred Gastrointestinal: NOT DONE Genitalia: Deferred Pelvic: Deferred Rectal: Deferred Extremities: Normal capillary refill, Normal range of motion Neurologic: Alert, lawn care technician II-XII nml as Tested, No Motor Deficits, Normal Affect, Normal Mood, No Sensory Deficits Cerebellar Function: Normal Reflexes: Normal Skin: Dry, Normal Color, Warm Lymphatic: No Adenopathy Was a procedure done? Was a procedure done?: No Sedation Sedation?: No EENT DIFF Eye: N/A Mouth: Thrush, Other (Shine's angina, dental abscess) X-Ray, Labs, Meds, VS Vital Signs Date Time Temp Pulse Resp B/P (MAP) Pulse Ox O2 Delivery O2 Flow Rate FiO2 03/07/25 21:05 98.6 03/07/25 20:13 79 17 99 Room Air 03/07/25 20:13 98.0 79 17 138/85 (102) 99 98.0 03/07/25 19:47 17 99 Room Air* 0 21 03/07/25 19:47 98.0 79 17 138/85 (102) 99 98.0 Current Medications Medications (Trade) Dose Ordered Sig/Mili Route Start Time Stop Time Status Last Admin Ceftriaxone Sodium 50 ml @ 100 mls/hr ONCE ONCE IV 03/07/25 20:15 03/07/25 20:44 DC 03/07/25 21:38 Methylprednisolone Sodium Succinate (Solu Medrol) 125 mg ONCE ONCE IV 03/07/25 20:15 03/07/25 20:16 DC 03/07/25 21:38 Acetaminophen (Tylenol Tablet) 650 mg ONCE ONCE PO 03/07/25 21:00 03/07/25 21:01 DC 03/07/25 21:05 Hep-Lock IV ordered Clindamycin 600 mg IV ordered Rocephin 1 g IV ordered Solu-Medrol 125 mg IV ordered Tylenol 650 mg ordered Patient had improvement in symptoms, well appearing and in no distress prior to discharge Advised to discontinue amoxicillin antibiotics and take the following antibiotics below as prescribed Advised to follow up with PCP and dentist in 1-2 days Patient verbalized understanding and agreeable with current plan of care Advised to return to ER immediately if symptoms worsen Time of 1ST Reevaluation: 19:54 Reevaluation 1ST: N/A Time of 2ND Reevaluation: 20:18 Reevaluation 2ND: Improved Patient Education/Counseling: Diagnosis, Treatment, Prognosis, Need For Follow Up Family Education/Counseling: No Family Present Departure 1 Departure Time of Disposition: 22:20 Impression: Primary Impression: Dental infection Disposition: HOME / SELF CARE / HOMELESS Condition: Stable e-Prescriptions Amoxicillin & Pot Clavulanate (Amoxicillin/Potassium Cla) 875 Mg Tab 1 TAB PO BID for 7 Days, #14 TAB 0 Refills Prov: KATIE VILLA 03/07/25 Discharged With: Self Critical Care Note Critical Care Time?: No Stability Stability form required: No Heart Score Heart Score: Heart Score Response (Comments) Value History N/A 0 EKG N/A 0 Age N/A 0 Risk Factors N/A 0 Troponin N/A 0 Total 0 KATIE VILLA Mar 07, 2025 20:16
[2025-03-07] MEDS: ACETAMINOPHEN 325 MG TAB PO ONE (21:05)
[2025-03-07] MEDS: methylPREDNISolone SOD SUCC 125 MG/2 ML VL IV ONE (21:38)
[2025-03-07] MEDS: cefTRIAXone 1GM/50ML D5W 50 ML IV ONE (21:38)
[2025-03-07] MEDS: CLINDAMYCIN 600MG IV 50 ML IV ONE (22:25)
[2025-03-07 22:53] VITALS: BP 117/59; PULSE 50; RESP 13; TEMP 97; O2SAT 98
== END 2025-03-07 22:54 | disposition home or self-care (01) ==
LOC: ER 19:25
DX: K04.7 Periapical abscess without sinus (principal); F32.A Depression, unspecified; F41.9 Anxiety disorder, unspecified; F10.90 Alcohol use, unspecified, uncomplicated; F19.90 Other psychoactive substance use, unspecified, uncomplicated; Z79.899 Other long term (current) drug therapy; Z88.1 Allergy status to other antibiotic agents; Z90.49 Acquired absence of other specified parts of digestive tract; Z98.890 Other specified postprocedural states; Y90.9 Presence of alcohol in blood, level not specified
CPT/HCPCS: 96365; 96367; 96375; 99284; J0696; J2919; J3490

== ENCOUNTER 2025-03-31 08:33 | Emergency (ER) | payer MEDICAID ==
[~2025-03-31] VITALS: Ht 167.6 cm; Wt 78.0 kg
[~2025-03-31 08:33] MED LIST changes: +AMOX875T4 PO
--- NOTE | 2025-03-31 08:59 | ED.PDOC ---
GI ASSESSMENT HPI Comments 24-year-old female brought in by EMS presents with a chief complaint of abdominal pain x 2 days with associated nausea, vomiting, and diarrhea. Patient states that her pain is localized to her epigastric region, nonradiating, describes as sharp, and rates her pain a 7/10. Patient mentions that she recently got her gallbladder removed and has been trying to figure out what to eat now that she no longer has one. Patient also endorses marijuana use. Chief Complaint: Abdominal Pain Time Seen by MD: 08:41 Primary Care Provider: UNKNOWN Reviewed Notes: Medications, Allergies Allergies: Coded Allergies: Metoclopramide (Verified Allergy, Unknown, 12/12/24) Home Meds Active Scripts Amoxicillin & Pot Clavulanate (Amoxicillin/Potassium Cla) 875 Mg Tab, 1 TAB PO BID for 7 Days, #14 TAB 0 Refills Prov:KATIE VILLA 03/07/25 Gabapentin (Once-Daily) (Gabapentin) 300 Mg Tab, 300 MG PO Q6HP PRN, #60 TAB Prov:JENARO ALBRIGHT MD 03/06/25 Metronidazole (Flagyl) 500 Mg Tab, 1 TAB PO BID for 7 Days, #14 TAB Prov:JENARO ALBRIGHT MD 03/06/25 Ciprofloxacin Hcl (Cipro) 250 Mg Tab, 250 MG PO BID for 7 Days, #14 TAB Prov:JENARO ALBRIGHT MD 03/06/25 Ondansetron Odt 4MG Tab (ZOFRAN PO) 4 Mg Tb, 4 MG PO QID PRN, #20 TAB ODT TAB-DISSOLVE IN MOUTH, THEN SWALLOW Prov:DONIS PIERCE MD 12/28/24 Reported Medications Escitalopram Oxalate (ESCITALOPRAM OXALATE) 10 Mg Tab, 1 TAB PO DAILY, #30 TAB 3 Refills 12/22/24 Buspirone Hcl (Buspirone Hcl) 15 Mg Tab, 15 MG PO HS for 30 Days 12/22/24 Aripiprazole (Abilify) 20 Mg Tab, 20 MG PO DAILY, TAB 12/22/24 Information Source: Patient, Emergency Med Personnel Mode of Arrival: EMS Timing: Days Duration: Since onset Prehospital treatment: Dairy Quality Assurance Officer, IVF Quality: Sharp Vomitus: Food Particles Stool: Watery, Yellow Severity: Moderate Recent: None Recent Hx of: Abdominal Surgery Pain Location: Epigastric Associated sign and symptoms: Nausea, Vomiting, Diarrhea, Abdominal Pain Past Medical History PAST MEDICAL HISTORY: Anxiety, Depression 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, 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 Family History Family History: Family hx of DM Social History Smoker: Non-Smoker Alcohol: Occasionally Drugs: Marijuana Lives In: Home Constitutional: denies: chills, diaphoresis, fatigue, fever, malaise, sweats, weakness, others EENTM: denies: blurred vision, double vision, ear bleeding, ear discharge, ear drainage, ear pain, ear ringing, eye pain, eye redness, hearing loss, mouth pain, mouth swelling, nasal discharge, nose bleeding, nose congestion, nose pain, photophobia, tearing, throat pain, throat swelling, voice changes, others Respiratory: denies: cough, hemoptysis, orthopnea, SOB at rest, shortness of breath, SOB with excertion, stridor, wheezing, others Cardiovascular: denies: chest pain, dizzy spells, diaphoresis, Dyspnea on exertion, edema, irregular heart beat, left arm pain, lightheadedness, palpitations, PND, syncope, others Gastrointestinal: reports: abdominal pain, diarrhea, nausea, vomiting; denies: abdomen distended, blood streaked bowels, constipated, dysphagia, difficulty swallowing, hematemesis, melena, poor appetite, poor fluid intake, rectal bleeding, rectal pain, others Genitourinary: denies: abnormal vagina bleeding, burning, dyspareunia, dysuria, flank pain, frequency, hematuria, incontinence, pain, , vagina discharge, urgency, others Neurological: denies: dizziness, fainting, headache, left sided numbness, left sided weakness, numbness, paresthesia, pre-existing deficit, right sided numbness, right sided weakness, seizure, speech problems, tingling, tremors, weakness, others Musculoskeletal: denies: back pain, gout, joint pain, joint swelling, muscle pain, muscle stiffness, neck pain, others Integumetry: denies: bruises, change in color, change in hair/nails, dryness, laceration, lesions, lumps, rash, wounds, others Allergic/Immunocompromised: denies: Difficulty Healing, Frequent Infections, Hives, Itching, others Hematologic/Lymphatic: denies: anemia, blood clots, easy bleeding, easy bruising, swollen glands, others Endocrine: denies: excessive hunger, excessive sweating, excessive thirst, excessive urination, flushing, intolerance to cold, intolerance to heat, unexplained weight gain, unexplained weight loss, others Psychiatric: denies: anxiety, bipolar disorder, depression, hopeless, panic disorder, schizophrenia, sleepless, suicidal, others All Other Systems: Reviewed and Negative Physical Exam General Appearance: Moderate Distress, Normal HEENT: Normal ENT Inspection, Pharynx Normal, TMs Normal Neck: Full Range of Motion, Non-Tender, Normal, Normal Inspection Respiratory: Chest Non-Tender, Lungs Clear, No Accessory Muscle Use, No Respiratory Distress, Normal Breath Sounds Cardiovascular: No Edema, No JVD, No Murmur, No Gallop, Normal Peripheral Pulses, Regular Rate/Rhythm Breast Exam: Deferred Gastrointestinal: No Organomegaly, Non Tender, No Pulsatile Mass, Normal Bowel Sounds, Soft Genitalia: Deferred Pelvic: Deferred Rectal: Deferred Extremities: No calf tenderness, Normal capillary refill, Normal inspection, Normal range of motion, Non-tender, No pedal edema Musculoskeletal : Apperance: Normal Neurologic: Alert, orthopedic cast specialist II-XII nml as Tested, No Motor Deficits, Normal Affect, Normal Mood, No Sensory Deficits Cerebellar Function: Normal Reflexes: Normal Skin: Dry, Normal Color, Warm Peripheral Pulses: 3+ Radial (R), 3+ Radial (L) Lymphatic: No Adenopathy Was a procedure done? Was a procedure done?: No GI differential Dx Differential Diagnosis: Constipation, Diverticular disease, Esophagitis, Gastritis/PUD, Gastroenteritis X-Ray, Labs, Meds, VS Vital Signs Date Time Temp Pulse Resp B/P (MAP) Pulse Ox O2 Delivery O2 Flow Rate FiO2 03/31/25 08:42 98.3 70 18 123/71 (88) 98 98.3 Lab Test 03/31/25 09:21 Range/Units White Blood Count 3.7 L 4.4-10.8 10^3/uL Red Blood Count 4.77 4.0-5.20 10^6/uL Hemoglobin 12.9 12.2-16.2 g/dL Hematocrit 37.8 36.0-46.0 % Mean Corpuscular Volume 79.3 L 80.0-100.0 fL Mean Corpuscular Hemoglobin 27.0 L 28.0-32.0 pg Mean Corpuscular Hemoglobin Concent 34.1 32.0-36.0 g/dL Red Cell Distribution Width 14.3 11.8-14.3 % Platelet Count 144 140-450 10^3/uL Mean Platelet Volume 10.5 6.9-10.8 fL Neutrophils (%) (Auto) 60.3 37.0-80.0 % Lymphocytes (%) (Auto) 30.2 10.0-50.0 % Monocytes (%) (Auto) 8.0 0.0-12.0 % Eosinophils (%) (Auto) 0.9 0.0-7.0 % Basophils (%) (Auto) 0.6 0.0-2.0 % Neutrophils # (Auto) 2.2 1.6-8.6 10 ^3/uL Lymphocytes # (Auto) 1.1 0.4-5.4 10 ^3/uL Monocytes # (Auto) 0.3 0-1.3 10 ^3/uL Eosinophils # (Auto) 0 0-0.8 10 ^3/uL Basophils # (Auto) 0 0-0.2 10 ^3/uL Nucleated Red Blood Cells 0.1 % Sodium Level 142 136-145 mmol/L Potassium Level 3.6 3.5-5.1 mmol/L Chloride Level 105 98-107 mmol/L Carbon Dioxide Level 27 20-31 mmol/L Anion Gap 10 5-15 Blood Urea Nitrogen 9 9-23 mg/dL Creatinine 0.70 0.550-1.02 mg/dL Glomerular Filtration Rate Calc 122 >90 mL/min BUN/Creatinine Ratio 12.9 10.0-20.0 Serum Glucose 83 74-106 mg/dL Calcium Level 9.9 8.7-10.4 mg/dL Patient alert. Complaining of abdominal pain. Abdomen is soft nontender. Vitals stable. Answering all questions. Establish intravenous access. Was given fluids. Was given Zofran. Reviewed her previous history. Continue to monitor. Time of 1ST Reevaluation: 08:38 Reevaluation 1ST: Unchanged Patient Education/Counseling: Diagnosis, Treatment, Need For Follow Up Family Education/Counseling: No Family Present SEPSIS Sepsis Screen Physician Orders Urinalysis (03/31/25 09:17) Vital Signs Date Time Temp Pulse Resp B/P (MAP) Pulse Ox O2 Delivery O2 Flow Rate FiO2 03/31/25 08:42 98.3 70 18 123/71 (88) 98 98.3 Laboratory Tests Test 03/31/25 09:21 White Blood Count 3.7 10^3/uL (4.4-10.8) L Departure 1 Departure Time of Disposition: 09:20 Impression: Primary Impression: Intractable abdominal pain Disposition: ADMITTED INPATIENT Admit to: Med Surg Condition: Guarded Critical Care Note Critical Care Time?: No Stability Stability form required: No Heart Score Heart Score: Heart Score Response (Comments) Value History N/A 0 EKG N/A 0 Age N/A 0 Risk Factors N/A 0 Troponin N/A 0 Total 0 I personally scribed for TYE DOLAN MD ([email or web address]) on 03/31/25 at 08:59. Electronically submitted by Kelvin Nicholson ([email or web address]). TYE DOLAN MD Mar 31, 2025 08:59
[2025-03-31 09:40] LABS: Basophils # (auto) 0 10 ^3/uL (0-0.2); Basophils % (auto) 0.6 % (0.0-2.0); Eosinophils # (auto) 0 10 ^3/uL (0-0.8); Eosinophils % (auto) 0.9 % (0.0-7.0); Hematocrit 37.8 % (36.0-46.0); Hemoglobin 12.9 g/dL (12.2-16.2); Lymphocytes # (auto) 1.1 10 ^3/uL (0.4-5.4); Lymphocytes % (auto) 30.2 % (10.0-50.0); Mean Corpuscular Hgb Conc. 34.1 g/dL (32.0-36.0); Mean Corpuscular Volume 79.3 fL (80.0-100.0); Monocytes # (auto) 0.3 10 ^3/uL (0-1.3); Neutrophils # (auto) 2.2 10 ^3/uL (1.6-8.6); Neutrophils % (auto) 60.3 % (37.0-80.0); Nucleated Red Blood Cells % 0.1 %; Platelet Count (auto) 144 10^3/uL (140-450); Red Blood Cells 4.77 10^6/uL (4.0-5.20); Red Cell Distribution Width 14.3 % (11.8-14.3); White Blood Cell 3.7 10^3/uL (4.4-10.8)
[2025-03-31 09:56] LABS: Chloride 105 mmol/L (98-107); Potassium 3.6 mmol/L (3.5-5.1); Sodium 142 mmol/L (136-145)
[2025-03-31 09:57] LABS: Anion Gap 10 (5-15); Calcium 9.9 mg/dL (8.7-10.4); Carbon Dioxide 27 mmol/L (20-31)
[2025-03-31 10:02] LABS: BUN/Creatinine Ratio 12.9 (10.0-20.0); Blood Urea Nitrogen 9 mg/dL (9-23); Glucose 83 mg/dL (74-106)
[2025-03-31 10:49] VITALS: BP 118/62; TEMP 98.2
[2025-03-31 10:49] LABS: Urine Bacteria FEW /hpf (None Seen); Urine Blood Negative /uL (Negative); Urine Color Yellow (Yellow); Urine Mucus MODERATE (None Seen); Urine Protein, UAD TRACE (Negative); Urine Squamous Epithelial Cell FEW /hpf (<5); Urine Urobilinogen 2 mg/dL (Negative); Urine WBC 3 /HPF (0-5); Urine pH 5.5 (5.0-9.0)
[2025-03-31 10:51] LABS: Urine Clarity Clear (Clear)
[2025-03-31] MEDS: SODIUM CHLORIDE 0.9% 1,000 ML IV ONE (12:05)
[2025-03-31] MEDS: ONDANSETRON HCL 4 MG/2 ML VIAL IV ONE (12:06)
[2025-03-31] MEDS: PANTOPRAZOLE 40 MG/10 ML VIAL INJ IV ONE (12:06)
[2025-03-31 12:10] VITALS: PULSE 87; RESP 19; O2SAT 96
[2025-03-31] MEDS: KETOROLAC TROMETH 30 MG/ML 1ML VIAL IV ONE (13:08)
== END 2025-03-31 13:28 | disposition home or self-care (01) ==
LOC: ER 08:33 → EDBD 08:33 → ER 13:28
DX: R10.13 Epigastric pain (principal); F41.9 Anxiety disorder, unspecified; F32.A Depression, unspecified; Z79.899 Other long term (current) drug therapy; Z90.49 Acquired absence of other specified parts of digestive tract
CPT/HCPCS: 36415; 80048; 81001; 85025; 96361; 96374; 96375; 99284; J1885; J2405; J2470; J7030

== ENCOUNTER 2025-04-02 14:11 | Inpatient (IN) | payer MEDICAID ==
[~2025-04-02] VITALS: Ht 167.6 cm; Wt 73.7 kg
--- NOTE | 2025-04-02 15:13 | ED.PDOC ---
History of Present Illness HPI Comments 24-year-old female presents to the ER prior medical history of anxiety, depression: Surgical history of cholecystectomy, and the chief complaint of rectal bleeding. Patient reports thinks she saw her PCP and was sent to the ER to from N/V, rectal bleeding, and abdominal pain. Patient was here two days ago for similar symptoms "24-year-old female brought in by EMS presents with a chief complaint of abdominal pain x 2 days with associated nausea, vomiting, and diarrhea. Patient states that her pain is localized to her epigastric region, nonradiating, describes as sharp, and rates her pain a 7/10. Patient mentions that she recently got her gallbladder removed and has been tr pepe to figure out what to eat now that she no longer has one. Patient also endorses marijuana use."Patient notes on the the rectal bleeding happening after the cholecystectomy, Denies chills, fever, /D, SOB, CP. No other associated symptoms, modifiers, recent injuries or sick contacts present at this time. Chief Complaint: GI Bleed Time Seen by MD: 14:45 Primary Care Provider: LANE Reviewed Notes: Nurses Notes, Medications, Allergies Allergies: Coded Allergies: Metoclopramide (Verified Allergy, Unknown, 12/12/24) Home Meds Active Scripts Amoxicillin & Pot Clavulanate (Amoxicillin/Potassium Cla) 875 Mg Tab, 1 TAB PO BID for 7 Days, #14 TAB 0 Refills Prov:KATIE VILLA 03/07/25 Gabapentin (Once-Daily) (Gabapentin) 300 Mg Tab, 300 MG PO Q6HP PRN, #60 TAB Prov:JENARO ALBRIGHT MD 03/06/25 Metronidazole (Flagyl) 500 Mg Tab, 1 TAB PO BID for 7 Days, #14 TAB Prov:JENARO ALBRIGHT MD 03/06/25 Ciprofloxacin Hcl (Cipro) 250 Mg Tab, 250 MG PO BID for 7 Days, #14 TAB Prov:JENARO ALBRIGHT MD 03/06/25 Ondansetron Odt 4MG Tab (ZOFRAN PO) 4 Mg Tb, 4 MG PO QID PRN, #20 TAB ODT TAB-DISSOLVE IN MOUTH, THEN SWALLOW Prov:DONIS PIERCE MD 12/28/24 Reported Medications Escitalopram Oxalate (ESCITALOPRAM OXALATE) 10 Mg Tab, 1 TAB PO DAILY, #30 TAB 3 Refills 3/21/25 Buspirone Hcl (Buspirone Hcl) 15 Mg Tab, 15 MG PO HS for 30 Days 12/22/24 Aripiprazole (Abilify) 20 Mg Tab, 20 MG PO DAILY, TAB 12/22/24 Information Source: Patient Mode of Arrival: Ambulatory Severity: Moderate Timing: Came on: Gradually Duration: Since onset Prehospital treatment: None Past Medical History PAST MEDICAL HISTORY: Anxiety, Depression 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, 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: No Pertinent CASH CONTROLLER History Family History Family History: Reviewed,noncontributory to illness, Unknown Social History Smoker: Non-Smoker Alcohol: Denies ETOH Use Drugs: Marijuana (Stopped for one week) Lives In: Home Constitutional: denies: chills, diaphoresis, fatigue, fever, malaise, sweats, weakness, others EENTM: denies: blurred vision, double vision, ear bleeding, ear discharge, ear drainage, ear pain, ear ringing, eye pain, eye redness, hearing loss, mouth pain, mouth swelling, nasal discharge, nose bleeding, nose congestion, nose pain, photophobia, tearing, throat pain, throat swelling, voice changes, others Respiratory: denies: cough, hemoptysis, orthopnea, SOB at rest, shortness of breath, SOB with excertion, stridor, wheezing, others Cardiovascular: denies: chest pain, dizzy spells, diaphoresis, Dyspnea on exertion, edema, irregular heart beat, left arm pain, lightheadedness, palpitations, PND, syncope, others Gastrointestinal: reports: abdominal pain, nausea, rectal bleeding, vomiting; denies: abdomen distended, blood streaked bowels, constipated, diarrhea, dysphagia, difficulty swallowing, hematemesis, melena, poor appetite, poor fluid intake, rectal pain, others Genitourinary: denies: abnormal vagina bleeding, burning, dyspareunia, dysuria, flank pain, frequency, hematuria, incontinence, pain, , vagina discharge, urgency, others Neurological: denies: dizziness, fainting, headache, left sided numbness, left sided weakness, numbness, paresthesia, pre-existing deficit, right sided numbness, right sided weakness, seizure, speech problems, tingling, tremors, weakness, others Musculoskeletal: denies: back pain, gout, joint pain, joint swelling, muscle pain, muscle stiffness, neck pain, others Integumetry: denies: bruises, change in color, change in hair/nails, dryness, laceration, lesions, lumps, rash, wounds, others Allergic/Immunocompromised: denies: Difficulty Healing, Frequent Infections, Hives, Itching, others Hematologic/Lymphatic: denies: anemia, blood clots, easy bleeding, easy bruising, swollen glands, others Endocrine: denies: excessive hunger, excessive sweating, excessive thirst, excessive urination, flushing, intolerance to cold, intolerance to heat, unexplained weight gain, unexplained weight loss, others Psychiatric: denies: anxiety, bipolar disorder, depression, hopeless, panic disorder, schizophrenia, sleepless, suicidal, others All Other Systems: Reviewed and Negative Physical Exam General Appearance: Moderate Distress, Normal HEENT: Normal ENT Inspection, Pharynx Normal, TMs Normal Neck: Full Range of Motion, Non-Tender, Normal, Normal Inspection Respiratory: Chest Non-Tender, Lungs Clear, No Accessory Muscle Use, No Respiratory Distress, Normal Breath Sounds Cardiovascular: No Edema, No JVD, No Murmur, No Gallop, Normal Peripheral Pulses, Regular Rate/Rhythm Breast Exam: Deferred Gastrointestinal: Diffuse, No Organomegaly, No Pulsatile Mass, Normal Bowel Sounds, Soft Genitalia: Deferred Pelvic: Deferred Rectal: Deferred Extremities: No calf tenderness, Normal capillary refill, Normal inspection, Normal range of motion, Non-tender, No pedal edema Musculoskeletal : Apperance: Normal Neurologic: Alert, log getter II-XII nml as Tested, No Motor Deficits, Normal Affect, Normal Mood, No Sensory Deficits Cerebellar Function: NOT DONE Reflexes: NOT DONE Skin: Dry, Normal Color, Warm Peripheral Pulses: 3+ Radial (R), 3+ Radial (L) Lymphatic: No Adenopathy Was a procedure done? Was a procedure done?: No Differential Dx Considerations may include: Gastritis Gastroenteritis X-Ray, Labs, Meds, VS Vital Signs Date Time Temp Pulse Resp B/P (MAP) Pulse Ox O2 Delivery O2 Flow Rate FiO2 04/02/25 15:02 97.5 56 18 147/91 (109) 98 97.5 Lab Test 04/02/25 15:42 04/02/25 15:25 Range/Units Urine Color Pending Urine Clarity Pending Urine pH Pending Urine Specific [place] Pending Urine Protein Pending Urine Ketones Pending Urine Blood Pending Urine Nitrite Pending Urine Bilirubin Pending Urine Urobilinogen Pending Urine Leukocyte Esterase Pending Urine RBC Pending Urine Microscopic WBC Pending Urine Squamous Epithelial Cells Pending Urine Bacteria Pending Urine Glucose Pending Urine Opiates Screen Pending Urine Fentanyl Screen Pending Urine Barbiturates Screen Pending Urine Phencyclidine Screen Pending Urine Amphetamines Screen Pending Urine Benzodiazepines Screen Pending Urine Cocaine Screen Pending Urine Cannabinoids Screen Pending White Blood Count Pending Red Blood Count Pending Hemoglobin Pending Hematocrit Pending Mean Corpuscular Volume Pending Mean Corpuscular Hemoglobin Pending Mean Corpuscular Hemoglobin Concent Pending Red Cell Distribution Width Pending Platelet Count Pending Mean Platelet Volume Pending Neutrophils (%) (Auto) Pending Lymphocytes (%) (Auto) Pending Monocytes (%) (Auto) Pending Basophils (%) (Auto) Pending Neutrophils # (Auto) Pending Lymphocytes # (Auto) Pending Monocytes # (Auto) Pending Sodium Level Pending Potassium Level Pending Chloride Level Pending Carbon Dioxide Level Pending Anion Gap Pending Blood Urea Nitrogen Pending Creatinine Pending Glomerular Filtration Rate Calc Pending BUN/Creatinine Ratio Pending Serum Glucose Pending Calcium Level Pending Total Bilirubin Pending Aspartate Amino Transferase (AST) Pending Alanine Aminotransferase (ALT) Pending Alkaline Phosphatase Pending Total Protein Pending Albumin Pending Patient alert. Complaining of nausea. Vitals stable. Answering questions. Has been seen in this ER many times. Reviewed her previous visit. Spoke with her primary care physician. She will be admitted for endoscope. GI consultation. Was given Protonix. Explained to the patient. Continue monitoring Time of 1ST Reevaluation: 15:15 Reevaluation 1ST: Unchanged Patient Education/Counseling: Diagnosis, Treatment, Prognosis Family Education/Counseling: No Family Present SEPSIS Sepsis Screen Physician Orders Complete Blood Count (04/02/25 14:43) Comprehensive Metabolic Panel (04/02/25 14:43) Urinalysis (04/02/25 14:43) Ct Ab Pel Wo Con-No Oral Or Iv (04/02/25 14:43) Drug Screen (04/02/25 14:44) Pantoprazole (Protonix) (04/02/25 16:15) Vital Signs Date Time Temp Pulse Resp B/P (MAP) Pulse Ox O2 Delivery O2 Flow Rate FiO2 04/02/25 15:02 97.5 56 18 147/91 (109) 98 97.5 Laboratory Tests Test 04/02/25 15:25 White Blood Count Pending Departure 1 Departure Time of Disposition: 16:00 Impression: Primary Impression: Intractable abdominal pain Additional Impressions: Nausea & vomiting Qualified Codes: R11.2 - Nausea with vomiting, unspecified GI bleed Qualified Codes: K92.2 - Gastrointestinal hemorrhage, unspecified Disposition: ADMITTED INPATIENT Admit to: Med Surg Condition: Guarded Critical Care Note Critical Care Time?: No Stability Stability form required: No Heart Score Heart Score: Heart Score Response (Comments) Value History N/A 0 EKG N/A 0 Age N/A 0 Risk Factors N/A 0 Troponin N/A 0 Total 0 I personally scribed for TYE DOLAN MD ([email or web address]) on 04/02/25 at 15:13. Electronically submitted by Daniel Mg ([email or web address]). TYE DOLAN MD Apr 02, 2025 15:13
[2025-04-02 15:44] LABS: Urine Bacteria None Seen /hpf (None Seen)
[2025-04-02 15:46] LABS: Basophils # (auto) 0 10 ^3/uL (0-0.2); Basophils % (auto) 0.6 % (0.0-2.0); Eosinophils # (auto) 0 10 ^3/uL (0-0.8); Hematocrit 36.9 % (36.0-46.0); Hemoglobin 12.5 g/dL (12.2-16.2); Lymphocytes # (auto) 1.2 10 ^3/uL (0.4-5.4); Lymphocytes % (auto) 26.6 % (10.0-50.0); Mean Corpuscular Hemoglobin 27.2 pg (28.0-32.0); Monocytes # (auto) 0.3 10 ^3/uL (0-1.3); Monocytes % (auto) 6.8 % (0.0-12.0); Nucleated Red Blood Cells % 0.1 %; Platelet Count (auto) 158 10^3/uL (140-450); Red Cell Distribution Width 14.5 % (11.8-14.3); White Blood Cell 4.7 10^3/uL (4.4-10.8)
--- NOTE | 2025-04-02 16:01 | DVH ---
Exam: CT CT AB PEL WO CON-NO ORAL OR IV History: colitis Comparison Study: CT CT AB PEL WO CON-NO ORAL OR IV on DOS: 12/28/24, CT CT AB PEL WO CON-NO ORAL OR I V on DOS: 12/19/24 Technique: Multidetector spiral CT of the abdomen and pelvis was performed from lung bases to pubic symphysis. Imaging was performed without IV contrast. Axial, coronal and sagittal multiplanar reform ats were obtained from the axial data set by the technologist. Radiation dose : Abdomen/Pelvis: CTDIvol 12.38 mGy, DLP 667.02 mGy*cm. Findings: Evaluation of solid organs is limited due to lack of intravenous contrast use. Lung Bases: No acute or significant lung base finding. Normal heart size. No pleural or pericardial effusion. Liver: Hypodensity in the region of the falciform ligament, likely focal fatty infiltration. Gallbladder and biliary Tree: Gallbladder is surgically absent. Spleen: Unremarkable Pancreas: The pancreas is grossly normal in appearance. Adrenal Glands: Unremarkable Kidneys: Kidneys are grossly normal without calculi or hydronephrosis. Bladder: Grossly unremarkable for degree of distention. Bowel: The stomach is grossly normal in appearance. Small bowel and colon are normal in caliber and d istribution. Normal appendix is visualized in the right lower quadrant without findings of appendicit is. Ascites: Free fluid in the pelvis could be physiologic. Lymphadenopathy: No mesenteric, retroperitoneal or periportal lymphadenopathy. Abdominal wall and Mesentery: Unremarkable. Vasculature: The visualized abdominal aorta is normal in size and caliber. Evaluation of abdominal a nd pelvic vessels is limited due to lack of intravenous contrast. Pelvic Organs: Unremarkable Musculoskeletal: No aggressive focal bony lesions, acute fractures or dislocation. IMPRESSION: 1. No acute abdominal or pelvic findings. Likely focal fatty infiltration in the liver along the falc iform ligament. Free fluid in the pelvis could be physiologic. Consider further evaluation with pelv ic ultrasound. Radiation optimization: All CT scans at this facility use at least one of these dose optimization magnus hniques: Automated exposure control mA and/or kV adjustment per patient size (includes targeted exams where dose is matched to clinical indication) or iterative reconstruction. HS:Y
[2025-04-02 16:03] LABS: Alanine Aminotransferase 12 U/L (7-40); Albumin 4.5 g/dL (3.2-4.8); Alkaline Phosphatase 63 U/L (46-116); Anion Gap 9 (5-15); Calcium 9.2 mg/dL (8.7-10.4); Carbon Dioxide 29 mmol/L (20-31); Glucose 79 mg/dL (74-106); Total Protein 6.8 g/dL (5.7-8.2)
[2025-04-02 16:11] LABS: Urine Blood Negative /uL (Negative); Urine Clarity Turbid (Clear); Urine Color Yellow (Yellow); Urine Mucus FEW (None Seen); Urine Protein, UAD Negative (Negative); Urine Specific Gravity 1.023 (1.001-1.035); Urine Squamous Epithelial Cell MOD /hpf (<5); Urine Urobilinogen Normal (Negative); Urine WBC 18 /HPF (0-5); Urine pH 5.5 (5.0-9.0)
[2025-04-02 16:13] LABS: Aspartate Aminotransferase 12 U/L (13-40); Bilirubin, Total 2.1 mg/dL (0.2-1.0); Blood Urea Nitrogen 8 mg/dL (9-23); Chloride 107 mmol/L (98-107); Potassium 3.4 mmol/L (3.5-5.1); Sodium 145 mmol/L (136-145)
[2025-04-02 16:20] LABS: Amphetamine Screen, Urine Neg (NEGATIVE); Barbiturate Scree,Urine Neg (NEGATIVE); Benzodiazephine Screen, Urine Neg (NEGATIVE); Cannabinoid Screen, Urine Pos (NEGATIVE); Cocaine Screen, Urine Neg (NEGATIVE); Opiate Scree,Urine Neg (NEGATIVE); Phencyclidine Screen, Urine Neg (NEGATIVE)
[2025-04-02] MEDS: cefTRIAXone 1GM/50ML D5W 50 ML IV ONE (16:47)
[2025-04-02] MEDS: PANTOPRAZOLE 40 MG/10 ML VIAL INJ IV ONE (16:47)
[2025-04-02 18:42] VITALS: TEMP 98.1
[2025-04-02] MEDS ORDERED: HYDROcodone-ACET 5/325MG TAB PO PRN (19:30)
[2025-04-02] MEDS ORDERED: ACETAMINOPHEN 325 MG TAB PO PRN (19:30)
[2025-04-02] MEDS ORDERED: ONDANSETRON HCL 4 MG/2 ML VIAL IV PRN (19:30)
[2025-04-02 20:22] VITALS: BP 139/86
[2025-04-02] MEDS: MORPHINE SULFATE INJ 2 MG/ml SYRG IM ONE (20:22)
[2025-04-02 20:23] VITALS: PULSE 68; RESP 19; O2SAT 98
[2025-04-02] MEDS: ONDANSETRON HCL 4 MG/2 ML VIAL IV ONE (20:23)
[2025-04-02] MEDS: POTASSIUM CHL 20 Meq TABLET PO ONE (20:23)
--- NOTE | 2025-04-02 21:05 | DVHHP2 ---
History of Present Illness Reason for Visit: Abdominal pain History of Present Illness 24-year-old female presents for evaluation of abdominal pain. Patient reports a four day history of sharp epigastric nonradiating abdominal pain with associated diarrhea, nausea and vomiting. She also reports intermittent chills. No other acute complaints reported. Past Medical History Depression and anxiety Past Surgical History , cholecystectomy Family History Noncontributory Smoke: No ALCOHOL: none Drugs: None Lives: with Family Review of Systems Review of Systems Review of systems are currently negative otherwise addressed in HPI. Allergies: Coded Allergies: Metoclopramide (Verified Allergy, Unknown, 12/12/24) Medications Current Medications Medications Dose Ordered Sig/Mili Route Start Time Stop Time Status Last Admin Dose Admin Pantoprazole Sodium 40 mg DAILY IV 04/03/25 10:00 Ceftriaxone Sodium 50 ml @ 100 mls/hr DAILY@09 IV 04/03/25 09:00 Acetaminophen/ Hydrocodone Bitart 1 tab Q4HP PRN PO 04/02/25 19:30 Ondansetron HCl 4 mg Q4HP PRN IV 04/02/25 19:30 Acetaminophen 650 mg Q6HP PRN PO 04/02/25 19:30 Exam Vital Signs Vital Signs Date Time Temp Pulse Resp B/P (MAP) Pulse Ox O2 Delivery O2 Flow Rate FiO2 04/02/25 20:23 68 19 98 Room Air* 0 21 04/02/25 20:22 139/86 04/02/25 18:42 98.1 98.1 Exam Gen: 24-year-old female in mild distress Skin: Warm, dry, normal color and texture, no rash. HEENT: Normocephalic atraumatic, mucous membranes moist and pink. Neck: Cervical and supraclavicular nodes normal without enlargement, trachea is midline, thyroid gland is normal without masses. Pulmonary: Clear to auscultation and percussion bilaterally. Cardiac: Regular rate and rhythm. No murmur Abdomen: Soft, epigastric tenderness, nondistended, bowel sounds present all 4 quadrants, no guarding, no rigidity, no organomegaly. Extremities: No cyanosis, clubbing, no edema Neuro: Cranial nerves II through XII grossly intact, normal affect and speech, no focal motor deficits. Labs/Xrays ORDERING PHYSICIAN: TYE DOLAN MD PROCEDURE(s): ABPL - CT AB PEL WO CON-NO ORAL OR IV REASON: colitis ORDER NUMBER(s): [id number], ACCESSION NUMBER(s): [id number] Exam: CT CT AB PEL WO CON-NO ORAL OR IV History: colitis Comparison Study: CT CT AB PEL WO CON-NO ORAL OR IV on DOS: 12/28/24, CT CT AB PEL WO CON-NO ORAL OR IV on DOS: 12/19/24 Technique: Multidetector spiral CT of the abdomen and pelvis was performed from lung bases to pubic symphysis. Imaging was performed without IV contrast. Axial, coronal and sagittal multiplanar reformats were obtained from the axial data set by the technologist. Radiation dose : Abdomen/Pelvis: CTDIvol 12.38 mGy, DLP 667.02 mGy*cm. Findings: Evaluation of solid organs is limited due to lack of intravenous contrast use. Lung Bases: No acute or significant lung base finding. Normal heart size. No pleural or pericardial effusion. Liver: Hypodensity in the region of the falciform ligament, likely focal fatty infiltration. Gallbladder and biliary Tree: Gallbladder is surgically absent. Spleen: Unremarkable Pancreas: The pancreas is grossly normal in appearance. Adrenal Glands: Unremarkable Kidneys: Kidneys are grossly normal without calculi or hydronephrosis. Bladder: Grossly unremarkable for degree of distention. Bowel: The stomach is grossly normal in appearance. Small bowel and colon are normal in caliber and distribution. Normal appendix is visualized in the right lower quadrant without findings of appendicitis. Ascites: Free fluid in the pelvis could be physiologic. Lymphadenopathy: No mesenteric, retroperitoneal or periportal lymphadenopathy. Abdominal wall and Mesentery: Unremarkable. Vasculature: The visualized abdominal aorta is normal in size and caliber. E valuation of abdominal and pelvic vessels is limited due to lack of intravenous contrast. Pelvic Organs: Unremarkable Musculoskeletal: No aggressive focal bony lesions, acute fractures or dislocation. IMPRESSION: 1. No acute abdominal or pelvic findings. Likely focal fatty infiltration in the liver along the falciform ligament. Free fluid in the pelvis could be physiologic. Consider further evaluation with pelvic ultrasound. Radiation optimization: All CT scans at this facility use at least one of these dose optimization techniques: Automated exposure control mA and/or kV adjustment per patient size (includes targeted exams where dose is matched to clinical indication) or iterative reconstruction. HS:Y ATED BY: RYAN RUTH MD Labs Test 04/02/25 15:42 04/02/25 15:25 Range/Units Urine Color Yellow Yellow Urine Clarity Turbid H Clear Urine pH 5.5 5.0-9.0 Urine Specific [place] 1.023 1.001-1.035 Urine Protein Negative Negative Urine Ketones 2+ H Negative Urine Blood Negative Negative /uL Urine Nitrite Negative Negative Urine Bilirubin Negative Negative Urine Urobilinogen Normal Negative mg/dL Urine Leukocyte Esterase 3+ Negative /uL Urine RBC 3 0 - 4 /hpf Urine Microscopic WBC 18 H 0-5 /HPF Urine Squamous Epithelial Cells Mod <5 /hpf Urine Bacteria None seen None Seen /hpf Urine Mucus Few None Seen Urine Glucose Normal Normal mg/dL Urine Opiates Screen Neg NEGATIVE Urine Fentanyl Screen Neg NEGATIVE Urine Barbiturates Screen Neg NEGATIVE Urine Phencyclidine Screen Neg NEGATIVE Urine Amphetamines Screen Neg NEGATIVE Urine Benzodiazepines Screen Neg NEGATIVE Urine Cocaine Screen Neg NEGATIVE Urine Cannabinoids Screen Pos NEGATIVE White Blood Count 4.7 # 4.4-10.8 10^3/uL Red Blood Count 4.60 4.0-5.20 10^6/uL Hemoglobin 12.5 12.2-16.2 g/dL Hematocrit 36.9 36.0-46.0 % Mean Corpuscular Volume 80.0 80.0-100.0 fL Mean Corpuscular Hemoglobin 27.2 L 28.0-32.0 pg Mean Corpuscular Hemoglobin Concent 34.0 32.0-36.0 g/dL Red Cell Distribution Width 14.5 H 11.8-14.3 % Platelet Count 158 140-450 10^3/uL Mean Platelet Volume 10.9 H 6.9-10.8 fL Neutrophils (%) (Auto) 65.0 37.0-80.0 % Lymphocytes (%) (Auto) 26.6 10.0-50.0 % Monocytes (%) (Auto) 6.8 0.0-12.0 % Eosinophils (%) (Auto) 1.0 0.0-7.0 % Basophils (%) (Auto) 0.6 0.0-2.0 % Neutrophils # (Auto) 3.0 1.6-8.6 10 ^3/uL Lymphocytes # (Auto) 1.2 0.4-5.4 10 ^3/uL Monocytes # (Auto) 0.3 0-1.3 10 ^3/uL Eosinophils # (Auto) 0 0-0.8 10 ^3/uL Basophils # (Auto) 0 0-0.2 10 ^3/uL Nucleated Red Blood Cells 0.1 % Sodium Level 145 136-145 mmol/L Potassium Level 3.4 L 3.5-5.1 mmol/L Chloride Level 107 98-107 mmol/L Carbon Dioxide Level 29 20-31 mmol/L Anion Gap 9 5-15 Blood Urea Nitrogen 8 L 9-23 mg/dL Creatinine 0.73 0.550-1.02 mg/dL Glomerular Filtration Rate Calc 116 >90 mL/min BUN/Creatinine Ratio 11.0 10.0-20.0 Serum Glucose 79 74-106 mg/dL Calcium Level 9.2 8.7-10.4 mg/dL Total Bilirubin 2.1 H 0.2-1.0 mg/dL Aspartate Amino Transferase (AST) 12 L 13-40 U/L Alanine Aminotransferase (ALT) 12 7-40 U/L Alkaline Phosphatase 63 46-116 U/L Total Protein 6.8 5.7-8.2 g/dL Albumin 4.5 3.2-4.8 g/dL Lipase 26 12-53 U/L Assessment/Plan Assessment/Plan Assessment Acute abdominal pain Urinary tract infection Electrolyte imbalance Plan Admit the patient to [facility] to the hospitalist GI consult Clear liquid diet Pain management Replete electrolytes Continue treatment per orders. Plan discussed with: Patient My Orders Orders - [facility] Procedure Category Date Status Time Stool Bacterial DEMARCO 04/02/25 Logged Culture 19:18 Stool Occult Blood LAB 04/02/25 Logged 19:18 Pantoprazole PHA 04/03/25 In Process (Protonix) 10:00 * [facility] [employer] CONS 04/02/25 Transmitted 19:18 Ceftriaxone 1gm/50ml PHA 04/03/25 In Process D5w (Rocephin) 09:00 Urine Bacterial DEMARCO 04/02/25 In Process Culture 19:18 Basic Metabolic Panel LAB 04/03/25 Verified 04:00 Admit ADMIT 04/02/25 Transmitted 19:18 Hydrocodone-Acet PHA 04/02/25 In Process 5/325mg Tab ([place] 19:30 Ondansetron Hcl PHA 04/02/25 In Process (Zofran) 19:30 Complete Blood Count LAB 04/03/25 Verified 04:00 Condition: Stable PEGGY 04/02/25 In Process 19:18 Acetaminophen Tablet PHA 04/02/25 In Process (Tylenol Tablet) 19:30 Clear Liq Diet DIET 04/03/25 Transmitted Breakfast Bedrest With Bathroom PEGGY 04/02/25 In Process Privileg 19:18 Date of Service: Apr 02, 2025 Billing Provider: DARIEN DIA Common Visit Codes: [id number] INP/OBS CARE (HIGH) DARIEN DIA Apr 02, 2025 21:05
[2025-04-03] MEDS ORDERED: cefTRIAXone 1GM/50ML D5W 50 ML IV SCH (09:00)
[2025-04-03] MEDS ORDERED: PANTOPRAZOLE 40 MG/10 ML VIAL INJ IV SCH (10:00)
== END 2025-04-02 21:12 | disposition left against medical advice (07) | DRG 463 ==
LOC: ER 14:11 → OVERFLOW 19:18
PROVIDERS: ADMIT Nurse Practitioner; ATTEND Nurse Practitioner
DX: N30.00 Acute cystitis without hematuria (principal); K92.2 Gastrointestinal hemorrhage, unspecified; E87.8 Other disorders of electrolyte and fluid balance, not elsewhere classified; A09 Infectious gastroenteritis and colitis, unspecified; F32.A Depression, unspecified; F41.9 Anxiety disorder, unspecified; Z90.49 Acquired absence of other specified parts of digestive tract; Z79.2 Long term (current) use of antibiotics; Z79.899 Other long term (current) drug therapy; Z88.8 Allergy status to other drugs, medicaments and biological substances; Z53.29 Procedure and treatment not carried out because of patient's decision for other reasons
CPT/HCPCS: 36415; 74176; 80053; 80307; 81001; 83690; 85025; 87086; 96365; 96375; G0378; J2405; J2470

== ENCOUNTER 2025-04-21 13:00 | Emergency (ER) | payer MEDICAID ==
[~2025-04-21] VITALS: Ht 167.6 cm; Wt 78.4 kg
--- NOTE | 2025-04-21 13:51 | ED.PDOC ---
GI ASSESSMENT HPI Comments This 24-year-old female presents secondary to a several month to several year history of intermittently having bright red blood per rectum. She states that when she had blood work done downhill she was noted to be anemic. However, recent blood work has not shown anemia. Patient reached out to her PCP seeing that she has bright red blood per rectum. Her PCP referred her to our emergency room for further workup management. The patient's only other complaint is vague generalized abdominal discomfort. She denies such things as headaches, vision change, chest pain, shortness of breath, flank pain, nausea, vomiting, diarrhea, dysuria or urinary frequency. Denies modifying factors. Denies radiation of her symptoms. Fourteen systems reviewed and negative except as mentioned above Chief Complaint: GI Bleed Time Seen by MD: 13:38 Primary Care Provider: LANE Allergies: Coded Allergies: Metoclopramide (Verified Allergy, Unknown, 12/12/24) Home Meds Active Scripts Amoxicillin & Pot Clavulanate (Amoxicillin/Potassium Cla) 875 Mg Tab, 1 TAB PO BID for 7 Days, #14 TAB 0 Refills Prov:KATIE VILLA 03/07/25 Gabapentin (Once-Daily) (Gabapentin) 300 Mg Tab, 300 MG PO Q6HP PRN, #60 TAB Prov:JENARO ALBRIGHT MD 03/06/25 Metronidazole (Flagyl) 500 Mg Tab, 1 TAB PO BID for 7 Days, #14 TAB Prov:JENARO ALBRIGHT MD 03/06/25 Ciprofloxacin Hcl (Cipro) 250 Mg Tab, 250 MG PO BID for 7 Days, #14 TAB Prov:JENARO ALBRIGHT MD 03/06/25 Ondansetron Odt 4MG Tab (ZOFRAN PO) 4 Mg Tb, 4 MG PO QID PRN, #20 TAB ODT TAB-DISSOLVE IN MOUTH, THEN SWALLOW Prov:DONIS PIERCE MD 12/28/24 Reported Medications Escitalopram Oxalate (ESCITALOPRAM OXALATE) 10 Mg Tab, 1 TAB PO DAILY, #30 TAB 3 Refills 12/22/24 Buspirone Hcl (Buspirone Hcl) 15 Mg Tab, 15 MG PO HS for 30 Days 12/22/24 Aripiprazole (Abilify) 20 Mg Tab, 20 MG PO DAILY, TAB 12/22/24 Mode of Arrival: Ambulatory Past Medical History PAST MEDICAL HISTORY: Anxiety, Depression 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, 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: No 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 Family History Family History: Reviewed,noncontributory to illness, Unknown Social History Smoker: Non-Smoker Alcohol: Denies ETOH Use Drugs: Marijuana Lives In: Home Constitutional: denies: chills, diaphoresis, fatigue, fever, malaise, sweats, weakness, others EENTM: denies: blurred vision, double vision, ear bleeding, ear discharge, ear drainage, ear pain, ear ringing, eye pain, eye redness, hearing loss, mouth pain, mouth swelling, nasal discharge, nose bleeding, nose congestion, nose pain, photophobia, tearing, throat pain, throat swelling, voice changes, others Respiratory: denies: cough, hemoptysis, orthopnea, SOB at rest, shortness of breath, SOB with excertion, stridor, wheezing, others Cardiovascular: denies: chest pain, dizzy spells, diaphoresis, Dyspnea on exertion, edema, irregular heart beat, left arm pain, lightheadedness, palpitations, PND, syncope, others Gastrointestinal: reports: abdomen distended, abdominal pain, blood streaked bowels, rectal bleeding; denies: constipated, diarrhea, dysphagia, difficulty swallowing, hematemesis, melena, nausea, poor appetite, poor fluid intake, rectal pain, vomiting, others Genitourinary: denies: abnormal vagina bleeding, burning, dyspareunia, dysuria, flank pain, frequency, hematuria, incontinence, pain, , vagina discharg e, urgency, others Neurological: denies: dizziness, fainting, headache, left sided numbness, left sided weakness, numbness, paresthesia, pre-existing deficit, right sided numbness, right sided weakness, seizure, speech problems, tingling, tremors, weakness, others Musculoskeletal: denies: back pain, gout, joint pain, joint swelling, muscle pain, muscle stiffness, neck pain, others Integumetry: denies: bruises, change in color, change in hair/nails, dryness, laceration, lesions, lumps, rash, wounds, others Allergic/Immunocompromised: denies: Difficulty Healing, Frequent Infections, Hives, Itching, others Hematologic/Lymphatic: denies: anemia, blood clots, easy bleeding, easy bruising, swollen glands, others Endocrine: denies: excessive hunger, excessive sweating, excessive thirst, excessive urination, flushing, intolerance to cold, intolerance to heat, unexplained weight gain, unexplained weight loss, others Psychiatric: denies: anxiety, bipolar disorder, depression, hopeless, panic d isorder, schizophrenia, sleepless, suicidal, others Physical Exam General Appearance: No Apparent Distress, Normal HEENT: Normal ENT Inspection, PERRL/EOMI, Pharyngeal Erythema, Pharynx Normal, TMs Normal Neck: Full Range of Motion, Non-Tender, Normal, Normal Inspection Respiratory: Chest Non-Tender, Lungs Clear, No Accessory Muscle Use, No Respiratory Distress, Normal Breath Sounds Cardiovascular: No Edema, No Murmur, No Gallop, Normal Peripheral Pulses, Regular Rate/Rhythm Breast Exam: Deferred Gastrointestinal: No Organomegaly, Non Tender, No Pulsatile Mass, Normal Bowel Sounds, Soft Genitalia: Deferred Pelvic: Deferred Rectal: Deferred Extremities: No calf tenderness, Normal capillary refill, Normal inspection, Normal range of motion, Non-tender, No pedal edema Neurologic: Alert, concrete batcher II-XII nml as Tested, No Motor Deficits, Normal Affect, Normal Mood, No Sensory Deficits Cerebellar Function: Normal Reflexes: Normal Skin: Dry, Normal Color, Warm Lymphatic: NOT DONE Was a procedure done? Was a procedure done?: No GI differential Dx Differential Diagnosis: Appendicitis, Complete , Incomplete , Bowel Obstruction, Cholangitis, Cholecystitis, Constipation, Esophageal rupture, Esophagitis, Gastroenteritis, GI hemorrhage, Hepatitis, Inflammatory BD, Ischemic Bowel, UTI, Drug toxicity, Hypovolemia, Impaction, Renal Failure, Is chemic Bowel X-Ray, Labs, Meds, VS Vital Signs Date Time Temp Pulse Resp B/P (MAP) Pulse Ox O2 Delivery O2 Flow Rate FiO2 04/21/25 15:48 98.1 52 20 110/67 (81) 98 98.1 04/21/25 15:48 52 20 98 Room Air 04/21/25 13:18 98.2 59 16 123/67 (85) 99 98.2 Lab Test 04/21/25 15:48 04/21/25 15:29 Range/Units Urine Color Light-yellow Yellow Urine Clarity Clear Clear Urine pH 6.5 5.0-9.0 Urine Specific [place] 1.022 1.001-1.035 Urine Protein Negative Negative Urine Ketones Negative Negative Urine Blood Trace H Negative /uL Urine Nitrite Negative Negative Urine Bilirubin Negative Negative Urine Urobilinogen Normal Negative mg/dL Urine Leukocyte Esterase 1+ Negative /uL Urine RBC 1 0 - 4 /hpf Urine Microscopic WBC 4 0-5 /HPF Urine Squamous Epithelial Cells Few <5 /hpf Urine Bacteria None seen None Seen /hpf Urine Mucus Few None Seen Urine Glucose Normal Normal mg/dL Urine Test Negative Negative White Blood Count 5.5 4.4-10.8 10^3/uL Red Blood Count 5.17 4.0-5.20 10^6/uL Hemoglobin 13.9 12.2-16.2 g/dL Hematocrit 41.4 36.0-46.0 % Mean Corpuscular Volume 80.0 80.0-100.0 fL Mean Corpuscular Hemoglobin 26.9 L 28.0-32.0 pg Mean Corpuscular Hemoglobin Concent 33.6 32.0-36.0 g/dL Red Cell Distribution Width 14.7 H 11.8-14.3 % Platelet Count 171 140-450 10^3/uL Mean Platelet Volume 10.8 6.9-10.8 fL Neutrophils (%) (Auto) 61.2 37.0-80.0 % Lymphocytes (%) (Auto) 31.0 10.0-50.0 % Monocytes (%) (Auto) 6.3 0.0-12.0 % Eosinophils (%) (Auto) 0.9 0.0-7.0 % Basophils (%) (Auto) 0.6 0.0-2.0 % Neutrophils # (Auto) 3.4 1.6-8.6 10 ^3/uL Lymphocytes # (Auto) 1.7 0.4-5.4 10 ^3/uL Monocytes # (Auto) 0.3 0-1.3 10 ^3/uL Eosinophils # (Auto) 0.1 0-0.8 10 ^3/uL Basophils # (Auto) 0 0-0.2 10 ^3/uL Nucleated Red Blood Cells 0.1 % Sodium Level 140 136-145 mmol/L Potassium Level 3.4 L 3.5-5.1 mmol/L Chloride Level 104 98-107 mmol/L Carbon Dioxide Level 28 20-31 mmol/L Anion Gap 8 5-15 Blood Urea Nitrogen 11 9-23 mg/dL Creatinine 0.78 0.550-1.02 mg/dL Glomerular Filtration Rate Calc 107 >90 mL/min BUN/Creatinine Ratio 14.1 10.0-20.0 Serum Glucose 87 74-106 mg/dL Calcium Level 10.2 8.7-10.4 mg/dL Total Bilirubin 1.6 H 0.2-1.0 mg/dL Aspartate Amino Transferase (AST) 14 13-40 U/L Alanine Aminotransferase (ALT) 22 7-40 U/L Alkaline Phosphatase 66 46-116 U/L Total Protein 7.2 5.7-8.2 g/dL Albumin 4.7 3.2-4.8 g/dL X-Ray, Labs, Meds, VS Comment This 24-year-old female presents to the emergency room secondary to which she believes is a a GI bleed. The patient showed pictures of bright red fluid around her stool. Her physical exam was benign. Her H&H were benign. She appeared well. As such, she is discharged home. She should follow up with the PCP for outpatient follow up with GI for likely endoscopy and colonoscopy. Patient is discharged. She should return for any new/worrisome/worsening symptoms. Time of 1ST Reevaluation: 14:08 Reevaluation 1ST: Unchanged Patient Education/Counseling: Need For Follow Up Family Education/Counseling: No Family Present SEPSIS Sepsis Screen Date sepsis recognized/suspect: Apr 21, 2025 Time Sepsis recognized/suspect: 1317 Recent Procedure: No On Antibiotic Therapy: No Respiratory Rate >20: No Heart Rate >90: No Temp<36 C (96.8 F) or >38.3 C: No SBP <90 or MAP <65 mmHG: No New Acute Mental Status Change: No Is the patient on CPAP, BIPAP,: No Vital Signs Date Time Temp Pulse Resp B/P (MAP) Pulse Ox O2 Delivery O2 Flow Rate FiO2 04/21/25 15:48 98.1 52 20 110/67 (81) 98 98.1 04/21/25 15:48 52 20 98 Room Air 04/21/25 13:18 98.2 59 16 123/67 (85) 99 98.2 Laboratory Tests Test 04/21/25 15:29 White Blood Count 5.5 10^3/uL (4.4-10.8) Departure 1 Departure Time of Disposition: 17:14 Impression: Primary Impression: GI bleed Disposition: 01 HOME / SELF CARE / HOMELESS Condition: Fair Critical Care Note Critical Care Time?: No Stability Stability form required: No Heart Score Heart Score: Heart Score Response (Comments) Value History N/A 0 EKG N/A 0 Age N/A 0 Risk Factors N/A 0 Troponin N/A 0 Total 0 I personally scribed for DONIS PIERCE MD ([email or web address]) on 04/21/25 at 14:20. Electronically submitted by Antonio Gutierrez ([email or web address]). DONIS PIERCE MD Apr 21, 2025 13:51
[2025-04-21 15:56] LABS: Hematocrit 41.4 % (36.0-46.0); Hemoglobin 13.9 g/dL (12.2-16.2); Mean Corpuscular Hemoglobin 26.9 pg (28.0-32.0); Mean Corpuscular Volume 80.0 fL (80.0-100.0); Nucleated Red Blood Cells % 0.1 %
[2025-04-21 16:05] LABS: Alanine Aminotransferase 22 U/L (7-40); Albumin 4.7 g/dL (3.2-4.8); Alkaline Phosphatase 66 U/L (46-116); Anion Gap 8 (5-15); BUN/Creatinine Ratio 14.1 (10.0-20.0); Blood Urea Nitrogen 11 mg/dL (9-23); Calcium 10.2 mg/dL (8.7-10.4); Carbon Dioxide 28 mmol/L (20-31); Chloride 104 mmol/L (98-107); Glucose 87 mg/dL (74-106); Sodium 140 mmol/L (136-145); Total Protein 7.2 g/dL (5.7-8.2)
[2025-04-21 16:08] LABS: Urine Protein, UAD Negative (Negative)
[2025-04-21 16:09] LABS: Bilirubin, Total 1.6 mg/dL (0.2-1.0); Potassium 3.4 mmol/L (3.5-5.1)
[2025-04-21 18:00] VITALS: BP 128/66; PULSE 54; RESP 16; TEMP 98.5; O2SAT 100
== END 2025-04-21 18:06 | disposition home or self-care (01) ==
LOC: ER 13:00
DX: K92.2 Gastrointestinal hemorrhage, unspecified (principal); F41.9 Anxiety disorder, unspecified; F32.A Depression, unspecified; Z79.899 Other long term (current) drug therapy; Z90.49 Acquired absence of other specified parts of digestive tract; Z98.890 Other specified postprocedural states; Z88.8 Allergy status to other drugs, medicaments and biological substances
CPT/HCPCS: 36415; 80053; 81001; 81025; 85025

== ENCOUNTER 2025-07-31 14:49 | Emergency (ER) | payer MEDICAID ==
[~2025-07-31] VITALS: Ht 160 cm; Wt 72.2 kg
[~2025-07-31 14:49] MED LIST changes: +CHL4PW PO; +DICY10CA PO
--- NOTE | 2025-07-31 15:27 | ED.PDOC ---
History of Present Illness HPI Comments 24-year-old female presents to the ER with prior surgical history of cholecystectomy in the chief complaint of abdominal pain. Patient reports on having epigastric pain associated with N/V/D for the past three days. Patient states on the epigastric pain worsening last night and was not able to sleep. Patient does have an appointment in October for a colonoscopy. Denies any other symptoms at this time. Denies chills, fever, SOB, CP. No other associated symptoms, modifiers, recent injuries or sick contacts present at this time. Chief Complaint: Abdominal Pain Time Seen by MD: 15:25 Primary Care Provider: LANE Reviewed Notes: Nurses Notes, Medications, Allergies Allergies: Coded Allergies: Metoclopramide (Verified Allergy, Unknown, 12/12/24) Home Meds Active Scripts Cholestyramine (QUESTRAN POWDER) 4 Gm Pw, 4 GM PO BID PRN for 30 Days, #1 POW 3 Refills Prov:EDWIGE REEVES RESIDENT 06/19/25 Dicyclomine Hcl (BENTYL CAPSULE) 10 Mg Cp, 1 CAP PO TID PRN for 30 Days, #90 CAP 3 Refills Prov:EDWIGE REEVES RESIDENT 06/19/25 Amoxicillin & Pot Clavulanate (Amoxicillin/Potassium Cla) 875 Mg Tab, 1 TAB PO BID for 7 Days, #14 TAB 0 Refills Prov:KATIE VILLA 03/07/25 Gabapentin (Once-Daily) (Gabapentin) 300 Mg Tab, 300 MG PO Q6HP PRN, #60 TAB Prov:JENARO ALBRIGHT MD 03/06/25 Metronidazole (Flagyl) 500 Mg Tab, 1 TAB PO BID for 7 Days, #14 TAB Prov:JENARO ALBRIGHT MD 03/06/25 Ciprofloxacin Hcl (Cipro) 250 Mg Tab, 250 MG PO BID for 7 Days, #14 TAB Prov:JENARO ALBRIGHT MD 03/06/25 Ondansetron Odt 4MG Tab (ZOFRAN PO) 4 Mg Tb, 4 MG PO QID PRN, #20 TAB ODT TAB-DISSOLVE IN MOUTH, THEN SWALLOW Prov:DONIS PIERCE MD 12/28/24 Reported Medications Escitalopram Oxalate (ESCITALOPRAM OXALATE) 10 Mg Tab, 1 TAB PO DAILY, #30 TAB 3 Refills 12/22/24 Buspirone Hcl (Buspirone Hcl) 15 Mg Tab, 15 MG PO HS for 30 Days 12/22/24 Aripiprazole (Abilify) 20 Mg Tab, 20 MG PO DAILY, TAB 12/22/24 Information Source: Patient Mode of Arrival: Ambulatory Severity: Moderate Timing: Days Duration: Since onset, Days Prehospital treatment: None Past Medical History 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 SECURITIES COUNSELOR 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: No Pertinent SECURITIES COUNSELOR History Family History Family History: Reviewed,noncontributory to illness, Unknown Social History Smoker: Non-Smoker Alcohol: Denies ETOH Use Drugs: Unknown Lives In: Home Constitutional: denies: chills, diaphoresis, fatigue, fever, malaise, sweats, weakness, others EENTM: denies: blurred vision, double vision, ear bleeding, ear discharge, ear drainage, ear pain, ear ringing, eye pain, eye redness, hearing loss, mouth pain, mouth swelling, nasal discharge, nose bleeding, nose congestion, nose pain, photophobia, tearing, throat pain, throat swelling, voice changes, others Respiratory: denies: cough, hemoptysis, orthopnea, SOB at rest, shortness of breath, SOB with excertion, stridor, wheezing, others Cardiovascular: denies: chest pain, dizzy spells, diaphoresis, Dyspnea on exertion, edema, irregular heart beat, left arm pain, lightheadedness, palpitations, PND, syncope, others Gastrointestinal: reports: abdominal pain, diarrhea, nausea, vomiting; denies: abdomen distended, blood streaked bowels, constipated, dysphagia, difficulty swallowing, hematemesis, melena, poor appetite, poor fluid intake, rectal bleeding, rectal pain, others Genitourinary: denies: abnormal vagina bleeding, burning, dyspareunia, dysuria, flank pain, frequency, hematuria, incontinence, pain, , vagina discharge, urgency, others Neurological: denies: dizziness, fainting, headache, left sided numbness, left sided weakness, numbness, paresthesia, pre-existing deficit, right sided numbness, right sided weakness, seizure, speech problems, tingling, tremors, weakness, others Musculoskeletal: denies: back pain, gout, joint pain, joint swelling, muscle pain, muscle stiffness, neck pain, others Integumetry: denies: bruises, change in color, change in hair/nails, dryness, laceration, lesions, lumps, rash, wounds, others Allergic/Immunocompromised: denies: Difficulty Healing, Frequent Infections, Hives, Itching, others Hematologic/Lymphatic: denies: anemia, blood clots, easy bleeding, easy bruising, swollen glands, others Endocrine: denies: excessive hunger, excessive sweating, excessive thirst, excessive urination, flushing, intolerance to cold, intolerance to heat, unexp lained weight gain, unexplained weight loss, others Psychiatric: denies: anxiety, bipolar disorder, depression, hopeless, panic disorder, schizophrenia, sleepless, suicidal, others All Other Systems: Reviewed and Negative Physical Exam General Appearance: Moderate Distress, Normal HEENT: Normal ENT Inspection, Pharynx Normal, TMs Normal Neck: Full Range of Motion, Non-Tender, Normal, Normal Inspection Respiratory: Chest Non-Tender, Lungs Clear, No Accessory Muscle Use, No Respiratory Distress, Normal Breath Sounds Cardiovascular: No Edema, No JVD, No Murmur, No Gallop, Normal Peripheral Pulses, Regular Rate/Rhythm Breast Exam: Deferred Gastrointestinal: Diffuse, No Organomegaly, No Pulsatile Mass, Normal Bowel Sounds, Soft Genitalia: Deferred Pelvic: Deferred Rectal: Deferred Extremities: No calf tenderness, Normal capillary refill, Normal inspection, Normal range of motion, Non-tender, No pedal edema Musculoskeletal : Apperance: Normal Neurologic: Alert, workforce specialist II-XII nml as Tested, No Motor Deficits, Normal Affect, Normal Mood, No Sensory Deficits Cerebellar Function: NOT DONE Reflexes: NOT DONE Skin: Dry, Normal Color, Warm Peripheral Pulses: 3+ Radial (R), 3+ Radial (L) Lymphatic: No Adenopathy Was a procedure done? Was a procedure done?: No Differential Dx Considerations may include: Gastroenteritis Electrolyte imbalance X-Ray, Labs, Meds, VS Vital Signs Date Time Temp Pulse Resp B/P (MAP) Pulse Ox O2 Delivery O2 Flow Rate FiO2 07/31/25 17:07 97.8 55 16 131/85 (100) 99 97.8 07/31/25 17:07 55 16 97 Room Air* 0 21 07/31/25 14:52 98.7 66 16 129/82 97 98.7 Lab Test 07/31/25 15:27 Range/Units White Blood Count 5.3 4.4-10.8 10^3/uL Red Blood Count 4.79 4.0-5.20 10^6/uL Hemoglobin 13.2 12.2-16.2 g/dL Hematocrit 39.0 36.0-46.0 % Mean Corpuscular Volume 81.3 80.0-100.0 fL Mean Corpuscular Hemoglobin 27.6 L 28.0-32.0 pg Mean Corpuscular Hemoglobin Concent 34.0 32.0-36.0 g/dL Red Cell Distribution Width 15.3 H 11.8-14.3 % Platelet Count 173 140-450 10^3/uL Mean Platelet Volume 10.9 H 6.9-10.8 fL Neutrophils (%) (Auto) 66.9 37.0-80.0 % Lymphocytes (%) (Auto) 26.5 10.0-50.0 % Monocytes (%) (Auto) 5.4 0.0-12.0 % Eosinophils (%) (Auto) 0.8 0.0-7.0 % Basophils (%) (Auto) 0.4 0.0-2.0 % Neutrophils # (Auto) 3.6 1.6-8.6 10 ^3/uL Lymphocytes # (Auto) 1.4 0.4-5.4 10 ^3/uL Monocytes # (Auto) 0.3 0-1.3 10 ^3/uL Eosinophils # (Auto) 0 0-0.8 10 ^3/uL Basophils # (Auto) 0 0-0.2 10 ^3/uL Nucleated Red Blood Cells 0.1 % Sodium Level 142 136-145 mmol/L Potassium Level 3.6 3.5-5.1 mmol/L Chloride Level 105 98-107 mmol/L Carbon Dioxide Level 27 20-31 mmol/L Anion Gap 10 5-15 Blood Urea Nitrogen 9 9-23 mg/dL Creatinine 0.75 0.550-1.02 mg/dL Glomerular Filtration Rate Calc 113 >90 mL/min BUN/Creatinine Ratio 12.0 10.0-20.0 Serum Glucose 82 74-106 mg/dL Calcium Level 9.3 8.7-10.4 mg/dL Current Medications Medications (Trade) Dose Ordered Sig/Mili Route Start Time Stop Time Status Last Admin Sodium Chloride 1,000 ml @ 1,000 mls/hr Q1H ONCE IVB 07/31/25 15:30 07/31/25 16:29 DC 07/31/25 15:30 Patient alert. Complaining of abdominal pain. Vitals stable. Answering questions. WBC within normal limits. Hemoglobin within normal limits. Patient is stated that her labs are always normal but Dr. Maki wanted to do colonoscopy. She continues to have abdominal pain. Explained to the patient. Continue monitoring. Time of 1ST Reevaluation: 15:55 Reevaluation 1ST: Unchanged Patient Education/Counseling: Diagnosis, Treatment, Prognosis Family Education/Counseling: No Family Present SEPSIS Sepsis Screen Date sepsis recognized/suspect: Jul 31, 2025 Time Sepsis recognized/suspect: 1451 Recent Procedure: No On Antibiotic Therapy: No Respiratory Rate >20: No Heart Rate >90: No Temp<36 C (96.8 F) or >38.3 C: No SBP <90 or MAP <65 mmHG: No New Acute Mental Status Change: No Is the patient on CPAP, BIPAP,: No Physician Orders Urinalysis (07/31/25 15:21) Ct Ab Pel Wo Con-No Oral Or Iv (07/31/25 15:21) * Gi Dvh Concrete Mixer Loader Truck Mounted (07/31/25 15:21) Vital Signs Date Time Temp Pulse Resp B/P (MAP) Pulse Ox O2 Delivery O2 Flow Rate FiO2 07/31/25 17:07 97.8 55 16 131/85 (100) 99 97.8 07/31/25 17:07 55 16 97 Room Air* 0 21 07/31/25 14:52 98.7 66 16 129/82 97 98.7 Laboratory Tests Test 07/31/25 15:27 White Blood Count 5.3 10^3/uL (4.4-10.8) Medications Medications Dose Ordered Sig/Mili Route Start Time Stop Time Status Last Admin Dose Admin Sodium Chloride 1,000 ml @ 1,000 mls/hr Q1H ONCE IVB 07/31/25 15:30 07/31/25 16:29 DC 07/31/25 15:30 Departure 1 Departure Time of Disposition: 17:20 Impression: Primary Impression: Intractable abdominal pain Additional Impression: Gastroenteritis Disposition: 09 ADMITTED INPATIENT Admit to: Med Surg Condition: Guarded Critical Care Note Critical Care Time?: No Stability Stability form required: No Heart Score Heart Score: Heart Score Response (Comments) Value History N/A 0 EKG N/A 0 Age N/A 0 Risk Factors N/A 0 Troponin N/A 0 Total 0 I personally scribed for TYE DOLAN MD ([email or web address]) on 07/31/25 at 15:27. Electronically submitted by Daniel Mg ([email or web address]). TYE DOLAN MD Jul 31, 2025 15:27
[2025-07-31] MEDS: SODIUM CHLORIDE 0.9% 1,000 ML IVB ONE (15:30)
[2025-07-31 15:45] LABS: Hematocrit 39.0 % (36.0-46.0); Hemoglobin 13.2 g/dL (12.2-16.2); Mean Corpuscular Hemoglobin 27.6 pg (28.0-32.0); Mean Corpuscular Volume 81.3 fL (80.0-100.0); Nucleated Red Blood Cells % 0.1 %
[2025-07-31 15:51] LABS: Chloride 105 mmol/L (98-107); Potassium 3.6 mmol/L (3.5-5.1); Sodium 142 mmol/L (136-145)
[2025-07-31 15:52] LABS: Anion Gap 10 (5-15); Calcium 9.3 mg/dL (8.7-10.4); Carbon Dioxide 27 mmol/L (20-31)
[2025-07-31 15:57] LABS: Glucose 82 mg/dL (74-106)
[2025-07-31 15:58] LABS: BUN/Creatinine Ratio 12.0 (10.0-20.0); Blood Urea Nitrogen 9 mg/dL (9-23)
[2025-07-31 17:07] VITALS: PULSE 55; RESP 16; TEMP 97.8; O2SAT 97
[2025-07-31] MEDS: ONDANSETRON HCL 4 MG/2 ML VIAL IV ONE (17:17)
[2025-07-31 17:18] VITALS: BP 131/85; PULSE 55; RESP 16
[2025-07-31] MEDS: HYDROmorphone HCL 2 MG/ML VL/or syr IV ONE (17:18)
--- NOTE | 2025-07-31 17:59 | DVH ---
CLINICAL HISTORY: Enteritis TECHNIQUE: CT of the abdomen and pelvis was performed without IV contrast. This exam was performed ac cording to our departmental dose optimization program. Up-to-date CT equipment and radiation dose red uction techniques are utilized as appropriate. CTDI 9 DLP 469 COMPARISON: CT CT AB PEL WO CON-NO ORAL OR IV on DOS: 04/02/25, CT ABD/PEL on DOS: 04/01/25, CT ABD/PEL W - IV on DOS: 02/23/25, CT CT AB PEL WO CON-NO ORAL OR IV on DOS: 12/28/24, CT CT AB PEL WO CON-NO OR AL OR IV on DOS: 12/19/24 FINDINGS: Abdomen/Pelvis: The spleen, pancreas, adrenal glands, kidneys, liver, uterus, and prostate gland are grossly unremark able. The abdominal aorta is normal in course and caliber. There are no significant atherosclerotic calcifi cations. There is no free intraperitoneal air or fluid. There is no enlarged abdominal pelvic lymph node. There is no bowel wall thickening or dilatation. The appendix is not seen with certainty. There is no focal inflammatory process in its expected location. Other: The imaged lower thorax is unremarkable. No acute osseous abnormality is evident. Impression: No acute abnormality.
== END 2025-07-31 17:49 | disposition left against medical advice (07) ==
LOC: ER 14:49
DX: K52.9 Noninfective gastroenteritis and colitis, unspecified (principal); Z79.899 Other long term (current) drug therapy; Z90.49 Acquired absence of other specified parts of digestive tract
CPT/HCPCS: 36415; 74176; 80048; 85025; 96361; 96374; 96375; 99285; J1171; J2405; J7030